=== PATIENT | female | born 1985 | race African-American/Black ===

== ENCOUNTER 2016-11-29 09:42 | Inpatient (IN) | payer OTHER, MEDICAID ==
[~2016-11-29] VITALS: Ht 157.5 cm; Wt 49.0 kg
[~2016-11-29 09:42] MED LIST: ALPR2TAB7 PO; AMLO10TA2 PO; BENA40TA2 PO; CARV25TA2 PO; DOXA1TAB2 PO; ESOM40CA PO; HYDR-4076 PO; HYDR8TAB2 PO; LEVE500T9 PO; Ondansetron Hcl/Pf PO; PANT40VI PO; PRED2.5T PO; SERT100T PO; SEVE800T8 PO; SUCR1ORA GT; TRAZ150T75 PO
--- NOTE | 2016-11-29 09:51 | NUR ---
PT.WAS SEEN BY .PT. SEEMS TO HAVE SOME ANXIETY.NO S/S OF DISTRESS,HD SIDE STILL UZING BLOOD,PRESSURE DRESSING REAPPLIED.
--- NOTE | 2016-11-29 09:54 | NUR ---
SPOKE ON THE PHONE WITH OF THE PT.
--- NOTE | 2016-11-29 11:00 | NUR ---
PT.WAS SEEN BY ,PT.WAS INFORM THAT WILL BE ADMITED TO TELE FLOOR.
[2016-11-29] MEDS ORDERED: CINA30TA2 PO (11:29)
[2016-11-29] MEDS ORDERED: HYDR200T PO (11:29)
[2016-11-29] MEDS ORDERED: POLY17PO4 PO (11:29)
[2016-11-29] MEDS ORDERED: METO5TAB2 PO (11:29)
[2016-11-29] MEDS ORDERED: BISA5TAB10 PO (11:29)
[2016-11-29] MEDS ORDERED: PRED2.5T PO (11:29)
[2016-11-29] MEDS ORDERED: FOLI0.8T2 PO (11:29)
[2016-11-29] MEDS ORDERED: ARIP5TAB10 PO (11:29)
[2016-11-29] MEDS ORDERED: DIPH50CA37 PO (11:29)
[2016-11-29 11:39] LABS: CREATININE 6.8 mg/dL (0.6-1.3); POTASSIUM 5.2 mmol/L (3.5-5.1)
--- NOTE | 2016-11-29 11:40 | NUR ---
SPOKE WITH CARE NEW ORDER TO ADMIT TO ARAVIND.NO S/S OF DISTRESS NOTED.
[2016-11-29 11:50] LABS: BILIRUBIN,DIRECT 0.2 mg/dL (0.0-0.2); BILIRUBIN,TOTAL 0.7 mg/dL (0.2-1.0); TOTAL PROTEIN, SERUM 8.6 g/dL (6.4-8.2)
--- NOTE | 2016-11-29 12:25 | NUR ---
SBAR REPORT GIVEN TO RIZWANA/RN PT.TRANSFERED TO CCU#4 ARAVIND STATUS.
[2016-11-29 12:36] LABS: HEMATOCRIT 31.5 % (37-47); HEMOGLOBIN 10.1 G/DL (12.0-16.0); MEAN CORPUSCULAR HEMOGLOBIN 30.6 UUG (27.0-31.0); MEAN CORPUSCULAR HGB CONC 32 g/dL (32.0-37.0); MEAN CORPUSCULAR VOLUME 95.8 FL (81.0-99.0); RED BLOOD CELL COUNT(AUTO) 3.29 MIL/UL (4.2-5.4); WHITE BLOOD COUNT (AUTO) 3.4 K/UL (4.0-11.2)
[2016-11-29 12:37] LABS: BASOPHILS % (AUTO) 0.7 % (0.0-2.0); EOSINOPHILS % (AUTO) 1.3 % (0.0-7.0); LYMPHOCYTES # (AUTO) 0.5 K/UL (0.8-4.8); LYMPHOCYTES % (AUTO) 15.4 % (20.5-51.5); MONOCYTES # (AUTO) 0.2 K/UL (0.1-1.30); MONOCYTES % (AUTO) 5.6 % (0.0-11.0); NEUTROPHILS # (AUTO) 2.6 K/UL (1.8-8.9); PLATELET COUNT (AUTO) 134 K/UL (150-450)
--- NOTE | 2016-11-29 12:45 | NUR ---
At this time patient, in from ER. vital signs stable, no c/of pain. no n/v. left upper thigh with clamp in place no bleeding noted. Patient AAOx4 with vitals signs stable at this time. Addendum: 11/29/16 at 1401 by RIZWANA HOYOS RN Dr. Blackmon called to be notified of pt's admission to ICU as ARAVIND overflow .
[2016-11-29 12:53] VITALS: BP 151/88
--- NOTE | 2016-11-29 15:04 | NUR ---
A call to Dr. Blackmon report given and orders to transfer patient to telemetry status. vital signs stable. no signs of bleeding to left upper thigh.
--- NOTE | 2016-11-29 15:56 | NUR ---
Telephone report given to maday Zhou. vital signs stable. No bleeding noted at AV Shunt. patient AAOX4. able to use bedside commode.
--- NOTE | 2016-11-29 16:10 | NUR ---
Received this transfer from CCU, per wheelchair. Alert, oriented x 4, able to move all extremities on purpose. Left AV fistula with dressing, no bleeding noted. Saline to Right foot. Placed on tele SR 95.
--- NOTE | 2016-11-29 17:37 | NUR ---
Complained of headache. Dilaudid 2 mg IV given with relief
--- NOTE | 2016-11-29 18:56 | NUR ---
Nauseated, Zofran IV will be given. Endorsed for further care
--- NOTE | 2016-11-29 19:00 | NUR ---
PATIENT IN BED ALERT ORIENTED, NO COMPLAIN OF PAIN AT THIS TIME. NO FURTHER BLEEDING NOTED AT AV SHUNT ON L THIGH. CALL LIGHT WITHIN REACH. CONT TO MONITOR.
[2016-11-29 20:00] VITALS: BP 164/104
[2016-11-30 00:03] VITALS: BP 156/107
--- NOTE | 2016-11-30 02:25 | NUR ---
NOTIFY DR. ANJELICA CHONG THAT PATIENT HAS ELEVATED BP WITH ORDER.
--- NOTE | 2016-11-30 03:30 | NUR ---
PATIENT BP ELEVATED 167/115 HR 97, DR. CHONG ORDER METOPROLOL 50 MG PLUS TYLENOL 650MG PO, BUT PATIENT REFUSED BOTH MEDICATIONS. CONT TO MONITOR.
[2016-11-30 04:00] VITALS: BP 165/106
[2016-11-30 07:33] LABS: BILIRUBIN,TOTAL 0.5 mg/dL (0.2-1.0); PHOSPHOROUS 7.1 mg/dL (2.5-4.9); POTASSIUM 5.4 mmol/L (3.5-5.1); TOTAL PROTEIN, SERUM 8.6 g/dL (6.4-8.2)
[2016-11-30 07:51] LABS: CREATININE 9.4 mg/dL (0.6-1.3)
[2016-11-30 07:59] LABS: WHITE BLOOD COUNT (AUTO) 4.3 K/UL (4.0-11.2)
[2016-11-30 08:00] VITALS: BP 146/106
[2016-11-30 08:00] LABS: BASOPHILS % (AUTO) 0.7 % (0.0-2.0); EOSINOPHILS % (AUTO) 2.1 % (0.0-7.0); HEMOGLOBIN 9.3 G/DL (12.0-16.0); LYMPHOCYTES % (AUTO) 26.1 % (20.5-51.5); MEAN CORPUSCULAR HEMOGLOBIN 31.4 UUG (27.0-31.0); MEAN CORPUSCULAR HGB CONC 32 g/dL (32.0-37.0); MEAN CORPUSCULAR VOLUME 97.1 FL (81.0-99.0); NEUTROPHILS % (AUTO) 64.1 % (38.5-71.5); PLATELET COUNT (AUTO) 129 K/UL (150-450); RED BLOOD CELL COUNT(AUTO) 2.96 MIL/UL (4.2-5.4)
--- NOTE | 2016-11-30 08:00 | NUR ---
CREATININE IS 9.4 RECEIVED FROM THE LAB AND DR LEMUS NOTIFIED WITH NO NEW ORDERS AT THIS TIME.
[2016-11-30 08:01] LABS: EOSINOPHILS # (AUTO) 0.1 K/uL (0.0-0.7); LYMPHOCYTES # (AUTO) 1.1 K/UL (0.8-4.8); MONOCYTES # (AUTO) 0.3 K/UL (0.1-1.30); NEUTROPHILS # (AUTO) 2.8 K/UL (1.8-8.9)
--- NOTE | 2016-11-30 08:52 | NUR ---
PATIENT SEEN AND EXAMINED BY DR LEMUS AND HE STATED THAT PATIENT WILL HAVE DIALYSIS TODAY AND HE IS AWARE OF THE CREATINE OF 9.4
[2016-11-30 09:44] LABS: THYROID STIMULATING HORMONE 3.024 mIU/mL (0.358-3.740)
[2016-11-30 11:16] VITALS: BP 146/95
--- NOTE | 2016-11-30 11:29 | NUR ---
WHILE I WAS IN THE ROOM GIVING PATIENT HER BENADRYL AND DILAUDID THE HEALTH AND SAFETY DIRECTOR CAME IN MOVED THE COMPUTER AND THE BED TABLE AND PATIENT GOT UPSET AND TOLD HER THAT SHE WAS RUDE BECAUSE SHE WAS TALKING AND THAT SHE DID NOT NEED TO PUSH THINGS AROUND LIKE THAT AND FINALLY AFTER ALL SAID AND DONE THE PATIENT TOLD THE HEALTH AND SAFETY DIRECTOR THAT SHE DOES NOT WANT HER TO DO HER DIALYSIS SO THE DIALYSIS NURSE LEFT.
--- NOTE | 2016-11-30 15:00 | NUR ---
PATIENT VOMITED ABOUT 150ML OF PARTLY UNDIGESTED FOOD UNABLE TO GIVE HER THE DUE HYDRALAZINE ZOFRAN GIVEN ORDERED AND WILL OBSERVE.
[2016-11-30 15:10] VITALS: BP 146/88
--- NOTE | 2016-11-30 18:00 | NUR ---
RESTING COMFORTABLE REQUESTED AND RECEIVED MEDICATIONS FOR PAIN AND ITCHING ORDERED MADE COMFORTABLE.
[2016-11-30 20:00] VITALS: BP 146/106
[2016-12-01] VITALS: BP 152/90
--- NOTE | 2016-12-01 06:30 | NUR ---
PATIENT SLEPT INTERMITTENTLY, IN NO ACUTE DISTRESS, NO SOB, NO C/O OF CHEST PAIN, NO S/S OF BLEEDING. PAIN MANAGEMENT ORDERED. PATIENT IS ON TELE SINUS RHYTHM. CALL LIGHT WITHIN REACH, WILL CONTINUE TO MONITOR.
--- NOTE | 2016-12-01 08:00 | NUR ---
AWAKE ALERT COOPERATE WELL NO SOB OR PAIN EAT BREAKFAST WELL HL INPLACE ON LT UPPER ARM AND CALL LIGHT WITHIN REACH
--- NOTE | 2016-12-01 09:00 | NUR ---
START HD TODAY KATINA PROCEDURE WELL DR HERNANDEZ SEEN PATIENT AND ORDER OK TO DISCHARGE HOME TODAY
[2016-12-01 11:00] VITALS: BP 121/80
--- NOTE | 2016-12-01 12:19 | NUR ---
The patient will be discharged today back home [[address], [place] [address]] [address] Leone. She is aware and in agreement. She confirmed her address and will try to arrange for her transportation. Her RN, Nabila, is aware of her discharge plan.
--- NOTE | 2016-12-01 12:30 | NUR ---
HD FINISHED TAKE OUT 2000ML RESTING WELL
--- NOTE | 2016-12-01 13:30 | NUR ---
EAT LUNCH MOD AMT D/C INSTRUCTION GIVEN REGARDING F/U WITH VASCULAR MD /PMD CONTINUE HOME MEDICINE ORDER REFUSED PHAMACY TO INSTRUCTION ON HOME MEDICINE AND EDUCATION PK GIVEN ,UNDERSTAND AND SIGNS D/C SHEET
[2016-12-01 15:00] VITALS: BP 117/84
--- NOTE | 2016-12-01 15:00 | NUR ---
IV HL D/C PRIOR D/C HOME TODAY CONDITION STABLE PAIN AND N/V UNDER CONTROL NO BLEEDING FROM AV SHUNT SITE DSG D/I
--- NOTE | 2016-12-01 16:05 | NUR ---
D/C HOME WITH HER BELONGING CONDITION STABLE PAIN AND NAUSEA UNDER CONTROL
== END 2016-12-01 16:05 | disposition home or self-care (01) | DRG 314 ==
LOC: ER 09:42 → CCU 12:37 → TELE 16:35
PROVIDERS: ADMIT Internal Medicine; ATTEND Internal Medicine
PROC: 5A1D60Z (ICD-10-PCS; principal; 2016-11-29)
DX: T82.41XA Breakdown (mechanical) of vascular dialysis catheter, initial encounter (principal); N18.6 End stage renal disease; T82.838A Hemorrhage due to vascular prosthetic devices, implants and grafts, initial encounter; I12.0 Hypertensive chronic kidney disease with stage 5 chronic kidney disease or end stage renal disease; M32.14 Glomerular disease in systemic lupus erythematosus; F11.20 Opioid dependence, uncomplicated; I69.351 Hemiplegia and hemiparesis following cerebral infarction affecting right dominant side; M32.19 Other organ or system involvement in systemic lupus erythematosus; E87.79 Other fluid overload; Z82.49 Family history of ischemic heart disease and other diseases of the circulatory system; Z81.8 Family history of other mental and behavioral disorders; G40.909 Epilepsy, unspecified, not intractable, without status epilepticus; G43.909 Migraine, unspecified, not intractable, without status migrainosus; Z79.899 Other long term (current) drug therapy; D63.8 Anemia in other chronic diseases classified elsewhere; Z99.2 Dependence on renal dialysis; Z91.15 Patient's noncompliance with renal dialysis; O10.219 Pre-existing hypertensive chronic kidney disease complicating pregnancy, unspecified trimester; Z3A.00 Weeks of gestation of pregnancy not specified; G89.4 Chronic pain syndrome; M79.7 Fibromyalgia; K58.9 Irritable bowel syndrome, unspecified; E87.5 Hyperkalemia; E28.2 Polycystic ovarian syndrome; N80.0 Endometriosis of uterus; Z88.8 Allergy status to other drugs, medicaments and biological substances; Z88.6 Allergy status to analgesic agent; Z91.040 Latex allergy status
CPT/HCPCS: 36415; 70030-TC; 71010; 83690; 83735; 84100; 84443; 85025; 85610; 90937; 93005; A4663; J1170; J1200; J2405; J2597; J3490; J7040; J7512; J8597; Q0163

== ENCOUNTER 2016-12-22 04:51 | Inpatient (IN) | payer OTHER, MEDICAID ==
[~2016-12-22] VITALS: Ht 157.5 cm; Wt 46.7 kg
[~2016-12-22 04:51] MED LIST changes: +ARIP5TAB10 PO; +BISA5TAB10 PO; +CINA30TA2 PO; +DIPH50CA37 PO; +FOLI0.8T2 PO; +HYDR200T PO; +METO5TAB2 PO; -PANT40VI PO; +POLY17PO4 PO; -SERT100T PO; -SUCR1ORA GT; -TRAZ150T75 PO
[2016-12-22] MEDS ORDERED: HYDROMORPHONE 1 MG/1 ML DISP.SYRIN IV ONE ×2 (06:00→09:15)
[2016-12-22] MEDS ORDERED: ONDANSETRON 4 MG/2 ML VIAL IV ONE (06:00)
[2016-12-22] MEDS ORDERED: HYDROMORPHONE 2 MG/1 ML DISP.SYRIN ONE ×2 (06:31→09:24)
[2016-12-22] MEDS ORDERED: ONDANSETRON 4 MG/2 ML VIAL ONE (06:31)
[2016-12-22 06:40] LABS: BASOPHILS % (AUTO) 0.9 % (0.0-2.0); EOSINOPHILS # (AUTO) 0.1 K/uL (0.0-0.7); EOSINOPHILS % (AUTO) 3.2 % (0.0-7.0); HEMOGLOBIN 8.6 g/dL (10.9-14.3); LYMPHOCYTES # (AUTO) 0.7 K/uL (20.0-40.0); LYMPHOCYTES % (AUTO) 19.8 % (20.5-51.5); MEAN CORPUSCULAR HEMOGLOBIN 32.5 uug (24.7-32.8); MEAN CORPUSCULAR HGB CONC 33 g/dL (32.3-35.6); MEAN CORPUSCULAR VOLUME 98.8 fL (75.5-95.3); MONOCYTES # (AUTO) 0.3 K/uL (2.0-10.0); MONOCYTES % (AUTO) 7.1 % (0.0-11.0); NEUTROPHILS # (AUTO) 2.5 K/uL (1.8-8.9); PLATELET COUNT (AUTO) 128 K/uL (179-408); RED BLOOD CELL COUNT(AUTO) 2.64 MIL/uL (3.63-4.92); WHITE BLOOD COUNT (AUTO) 3.6 K/uL (3.8-11.8)
[2016-12-22] MEDS ORDERED: diphenhydrAMINE 50 MG/1 ML VIAL ONE (06:44)
[2016-12-22] MEDS ORDERED: diphenhydrAMINE 50 MG/1 ML VIAL IV ONE (06:45)
[2016-12-22 06:57] LABS: BILIRUBIN,TOTAL 0.3 mg/dL (0.2-1.0); TOTAL PROTEIN, SERUM 7.6 g/dL (6.4-8.2)
[2016-12-22 07:16] LABS: POTASSIUM 8.7 mmol/L (3.5-5.1)
[2016-12-22] MEDS ORDERED: DEXTROSE 50% 50 ML DISP.SYRIN IV ONE (07:30)
[2016-12-22] MEDS ORDERED: SODIUM BICARBONATE 8.4% 50 MEQ/50 ML DISP.SYRIN IV ONE (07:30)
[2016-12-22] MEDS ORDERED: SODIUM POLYSTYRENE SULFONATE 15 G/60 ML LIQUID UDC PO ONE (07:30)
[2016-12-22] MEDS ORDERED: INSULIN REGULAR, HUMAN 1,000 UNITS/10 ML VIAL IV ONE (07:30)
[2016-12-22] MEDS ORDERED: SODIUM POLYSTYRENE SULFONATE 15 G/60 ML LIQUID UDC ONE (07:44)
[2016-12-22] MEDS ORDERED: DEXTROSE 50% 50 ML DISP.SYRIN ONE (07:44)
[2016-12-22] MEDS ORDERED: INSULIN REGULAR, HUMAN 300 UNIT/3 ML VIAL ONE (07:44)
[2016-12-22 08:39] LABS: BILIRUBIN,DIRECT 0.1 mg/dL (0.0-0.2)
--- NOTE | 2016-12-22 08:50 | NUR ---
called dr. nolan, will call dr. ledezma per dr. nolan
--- NOTE | 2016-12-22 09:00 | NUR ---
dr. hernandes admitted the pt. transfer to floor pending on the bed being available. nsg foundry melt supervisor aware.
[2016-12-22] MEDS ORDERED: ONDANSETRON IV *ER 4 MG/2 ML VIAL IV ONE (09:15)
[2016-12-22 09:36] LABS: *BILIRUBIN,URIN NEGATIVE (NEGATIVE); *BLOOD, URINE 3+ (NEGATIVE); *CLARITY,URINE CLOUDY (CLEAR); *COLOR,URINE RED (YELLOW); *KETONES,URINE NEGATIVE (NEGATIVE); *UROBILINOGEN,URINE 0.2 E.U./dl (NORMAL); LEUKOCYTE ESTERASE ,URINE NEGATIVE (NEGATIVE); NITRITE, URINE NEGATIVE (NEGATIVE); PH,URINE 8.5 (5.0-8.0); UGLUCOSE TRACE (NEGATIVE)
[2016-12-22 09:44] LABS: *PROTEIN,URINE 3+ (NEGATIVE)
[2016-12-22 09:47] LABS: BACTERIA,URINE NONE SEEN /HPF (NONE SEEN); RBC,URINE TNTC /HPF (0-3); SQUAMOUS EPITHELIAL CELL,UR FEW /HPF (NONE SEEN); WBC,URINE NONE SEEN /HPF (0-3)
--- NOTE | 2016-12-22 10:07 | NUR ---
pt transfered to floor in stable condition
[2016-12-22 10:30] VITALS: BP 197/120
--- NOTE | 2016-12-22 10:30 | NUR ---
received from ER awake alert and oriented per stretcher with c./o vaginal bleeding and lower abdominal and back pain, states missed her dialysis. av shunt on the left thigh, routine admission care rendered, initial assessment done, spoke to dialysis nurse- will do her today, safety measures initiated, saline lock on the left lower leg above the ankle. call light within reach.
[2016-12-22] MEDS ORDERED: HYDROMORPHONE 1 MG/1 ML DISP.SYRIN IV PRN (11:00)
[2016-12-22] MEDS ORDERED: ONDANSETRON PO PRN (11:00)
[2016-12-22] MEDS ORDERED: ACETAMINOPHEN 325 MG TABLET PO PRN (11:00)
[2016-12-22] MEDS ORDERED: ONDANSETRON HCL 4 MG TABLET PO PRN (11:45)
[2016-12-22] MEDS ORDERED: HYDROMORPHONE HCL 2 MG TABLET PO PRN (12:00)
--- NOTE | 2016-12-22 12:22 | NUR ---
dialysis nurse at bedside to do dialysis- meds held at this time
[2016-12-22] MEDS ORDERED: HYDROMORPHONE 2 MG/1 ML DISP.SYRIN IV PRN (13:15)
[2016-12-22] MEDS: HYDROMORPHONE 2 MG/1 ML DISP.SYRIN IV PRN ×3 (13:21→21:06)
[2016-12-22] MEDS: diphenhydrAMINE 50 MG/1 ML VIAL IV PRN ×3 (13:21→21:06)
--- NOTE | 2016-12-22 15:00 | NUR ---
dialysis completed, took out 2.5 liters of fluid, no distress noted, will serve lunch and give medications, tele SR 90's, needs attended
[2016-12-22] MEDS: LEVETIRACETAM 500 MG TABLET PO SCH ×2 (15:34→17:00)
[2016-12-22] MEDS: CARVEDILOL 25 MG TABLET PO SCH ×2 (15:35→17:00)
[2016-12-22] MEDS: AMLODIPINE 10 MG TABLET PO SCH (15:35)
[2016-12-22] MEDS: CINACALCET HCL 30 MG TABLET PO SCH (15:35)
[2016-12-22] MEDS: DOXAZOSIN 1 MG TABLET PO SCH ×2 (15:36→17:00)
[2016-12-22] MEDS: hydrALAZINE HCL 25 MG TABLET PO SCH ×2 (15:36→23:02)
[2016-12-22] MEDS: SEVELAMER CARBONATE 800 MG TABLET PO SCH ×2 (15:41→18:00)
[2016-12-22] MEDS: BENAZEPRIL HCL 20 MG TABLET PO SCH ×2 (15:42→17:00)
[2016-12-22] MEDS ORDERED: Medication Not On Formulary EA (Benazepril Hcl 40 MG) PO SCH (17:00)
[2016-12-22 17:26] VITALS: BP 143/88
--- NOTE | 2016-12-22 18:53 | NUR ---
resting in bed, medicated x2 with Dilaudid 1.5mg iv prn for pain this shift, all needs attended and met, still has vaginal bleeding, changed peripad x 3 this shift, call light within reach
--- NOTE | 2016-12-22 19:40 | NUR ---
PT RECEIVED IN BED, AWAKE. A/OX4. ABLE TO MAKE NEEDS KNOWN. V/S STABLE. IN NO ACUTE DISTRESS. C/O ABDOMINAL PAIN AND HEADACHE 10/21. IV INTACT AND PATENT. AV SHUNT IN LEFT THIGH, THRILL FELT. SAFETY MEASURE IMPLEMENTED. CALL LIGHT WITHIN REACH.
[2016-12-22] MEDS: DOCUSATE SODIUM 100 MG CAPSULE PO SCH (21:00)
[2016-12-22 21:59] VITALS: BP 149/106
[2016-12-23] MEDS: diphenhydrAMINE 50 MG/1 ML VIAL IV PRN ×6 (01:07→21:59)
[2016-12-23] MEDS: HYDROMORPHONE 2 MG/1 ML DISP.SYRIN IV PRN ×6 (01:07→21:59)
[2016-12-23 05:30] VITALS: BP 138/76
--- NOTE | 2016-12-23 06:30 | NUR ---
END OF SHIFT NOTES. PT SLEPT INTERMITTENTLY THROUGHOUT SHIFT. IN STABLE CONDITION. PAIN MANAGED. IV/INTACT PATENT. ALL NEEDS ATTENDED. SAFETY MAINTAINED. CALL LIGHT WITHIN REACH.
[2016-12-23] MEDS: hydrALAZINE HCL 25 MG TABLET PO SCH ×3 (06:48→21:07)
[2016-12-23 07:30] LABS: BASOPHILS % (AUTO) 0.9 % (0.0-2.0); EOSINOPHILS # (AUTO) 0.2 K/uL (0.0-0.7); EOSINOPHILS % (AUTO) 4.3 % (0.0-7.0); HEMOGLOBIN 9.6 g/dL (10.9-14.3); LYMPHOCYTES % (AUTO) 29.5 % (20.5-51.5); MEAN CORPUSCULAR HEMOGLOBIN 31.9 uug (24.7-32.8); MEAN CORPUSCULAR HGB CONC 32 g/dL (32.3-35.6); MEAN CORPUSCULAR VOLUME 98.3 fL (75.5-95.3); MONOCYTES # (AUTO) 0.3 K/uL (2.0-10.0); MONOCYTES % (AUTO) 9.1 % (0.0-11.0); NEUTROPHILS % (AUTO) 56.2 % (38.5-71.5); WHITE BLOOD COUNT (AUTO) 3.5 K/uL (3.8-11.8)
[2016-12-23 07:34] LABS: HEMATOCRIT 29.5 % (31.2-41.9)
[2016-12-23 07:35] LABS: PLATELET COUNT (AUTO) 61 K/uL (179-408)
[2016-12-23 07:47] LABS: BILIRUBIN,TOTAL 0.4 mg/dL (0.2-1.0); MAGNESIUM 2.2 mg/dL (1.8-2.4); POTASSIUM 5.2 mmol/L (3.5-5.1)
[2016-12-23 08:16] LABS: CREATININE 11.5 mg/dL (0.6-1.3); PHOSPHOROUS 8.3 mg/dL (2.5-4.9)
[2016-12-23] MEDS: CINACALCET HCL 30 MG TABLET PO SCH (08:40)
[2016-12-23] MEDS: LEVETIRACETAM 500 MG TABLET PO SCH ×2 (08:40→16:59)
[2016-12-23] MEDS: FOLIC ACID/VITAMIN B COMP W-C TABLET PO SCH (08:40)
[2016-12-23] MEDS: SEVELAMER CARBONATE 800 MG TABLET PO SCH ×3 (08:40→16:59)
[2016-12-23] MEDS: predniSONE 2.5 MG TABLET PO SCH (08:40)
[2016-12-23] MEDS: FAMOTIDINE. 20 MG/2 ML VIAL IV SCH (08:40)
[2016-12-23] MEDS: AMLODIPINE 10 MG TABLET PO SCH (08:41)
[2016-12-23] MEDS: DOXAZOSIN 1 MG TABLET PO SCH ×2 (08:41→17:00)
[2016-12-23] MEDS: BENAZEPRIL HCL 20 MG TABLET PO SCH ×3 (08:41→17:00)
[2016-12-23] MEDS: CARVEDILOL 25 MG TABLET PO SCH ×3 (08:41→17:00)
[2016-12-23] MEDS ORDERED: HYDROXYCHLOROQUINE SULFATE 200 MG TABLET PO SCH (09:00)
--- NOTE | 2016-12-23 09:00 | NUR ---
START HD TODAY KATINA PROCEDURE WELL DR LEMUS SEE PATIENT AND LAB THIS AM NEW ORDER IN CHART
[2016-12-23 10:22] LABS: EOSINOPHILS % (MANUAL) 6 % (0-8); LYMPHOCYTES % (MANUAL) 38 % (20-40); MONOCYTES % (MANUAL) 6 % (2-10); NEUTROPHILS % (MANUAL) 50 % (42-75)
[2016-12-23 15:57] VITALS: BP 136/95
[2016-12-23] MEDS ORDERED: VITAMINS A AND D OINT TP PRN ×2 (17:30→18:26)
--- NOTE | 2016-12-23 18:00 | NUR ---
STABLE CONDITION PAIN UNDER CONTROL NO ACUTE DISTRESS SAFETY MEASURE PROVIDED CALL LIGHT IN REACH
[2016-12-23 20:50] VITALS: BP 139/87
[2016-12-23] MEDS: DOCUSATE SODIUM 100 MG CAPSULE PO SCH (21:00)
--- NOTE | 2016-12-23 22:00 | NUR ---
PT'S ON BED REST AFTER SHE GOT MEDICATION VIA IV SITE ON LEFT FOOT,PT STATED THAT"IT'S HURTING ME A LOT EVEN THOUGH MY VEIN'S STILL GOOD ONE.I DON'T LIKE IT ON MY FOOT",RESTARTED THE NEW HL AT LEFT FOREARM AND REMOVED THE OLD ONE FROM LEFT FOOT:PER PT REQUESTED.UPDATED THE PLAN OF CARE TO PT.PER PT STATED THAT" I HAVE PERIOD,STILL A LITTLE NOT REALLY A LOT LIKE BEFORE".KEPT COMFORT.CALL-LIGHT WITHIN REACH.
[2016-12-24] MEDS: diphenhydrAMINE 50 MG/1 ML VIAL IV PRN ×5 (02:07→18:55)
[2016-12-24] MEDS: HYDROMORPHONE 2 MG/1 ML DISP.SYRIN IV PRN ×5 (02:08→18:55)
[2016-12-24 04:53] VITALS: BP 147/92
[2016-12-24] MEDS: hydrALAZINE HCL 25 MG TABLET PO SCH ×3 (05:38→14:25)
--- NOTE | 2016-12-24 06:20 | NUR ---
PT'S COMFORTABLE ON BED;DENIED OF PAIN OR ANY DISCOMFORT AT THIS TIME.PAIN'S CONTROLLED IN THE SHIFT NOTED.PER PT STATED THAT"I THINK I HAVE NO MORE PERIOD".NO DISTRESS NOTED IN THE SHIFT.
[2016-12-24] MEDS: FAMOTIDINE. 20 MG/2 ML VIAL IV SCH (07:49)
--- NOTE | 2016-12-24 08:00 | NUR ---
AWAKE COOPERATE NO SOB STATE PAIN MED HELP TO RELIEF PAIN C/O NAUSDA MED PRN GIVEN VAGINAL BLEEDING WAS SLOW DOWN AND LESS RESTING WELL WITH CALL LIGHT IN REACH
[2016-12-24] MEDS: FOLIC ACID/VITAMIN B COMP W-C TABLET PO SCH (09:13)
[2016-12-24] MEDS: AMLODIPINE 10 MG TABLET PO SCH (09:13)
[2016-12-24] MEDS: SEVELAMER CARBONATE 800 MG TABLET PO SCH ×3 (09:13→17:16)
[2016-12-24] MEDS: predniSONE 2.5 MG TABLET PO SCH (09:14)
[2016-12-24] MEDS: BENAZEPRIL HCL 20 MG TABLET PO SCH ×2 (09:14→17:20)
[2016-12-24] MEDS: CARVEDILOL 25 MG TABLET PO SCH ×2 (09:14→17:20)
[2016-12-24] MEDS: DOXAZOSIN 1 MG TABLET PO SCH ×2 (09:14→17:20)
[2016-12-24] MEDS: CINACALCET HCL 30 MG TABLET PO SCH (09:15)
[2016-12-24] MEDS: LEVETIRACETAM 500 MG TABLET PO SCH ×2 (09:15→17:16)
[2016-12-24 11:14] VITALS: BP 150/92
--- NOTE | 2016-12-24 14:30 | NUR ---
pain med and zofran given as request resting vs taken stable
[2016-12-24 15:04] VITALS: BP 124/83
--- NOTE | 2016-12-24 17:30 | NUR ---
STABLE CONDITION NO ACUTE DISTRESS PAIN UNDER CONTROL SAFETY MEASURE PROVIDED CALL LIGHT IN REACH
[2016-12-24] MEDS ORDERED: HYDR2TAB4 PO (17:56)
--- NOTE | 2016-12-24 18:00 | NUR ---
D/C INSTRUCTION REGARDING F/U WITH OWN PMD CONTINUE HOME MEDICINE AND EDUCATION PK GIVE ,VERBALIZES UNDERSTAND AND SIGNS D/C SHEET HL D/C PRIOR D/C HOME TODAY
--- NOTE | 2016-12-24 18:30 | NUR ---
REFUSED TO HAVE PHAMACY EXPLAINED ALL HOME MEDICINE AND DR ARREDONDO STATE I KNOW IT
[2016-12-24 20:00] VITALS: BP 132/89
--- NOTE | 2016-12-24 20:09 | NUR ---
Denies any pain/discomforts. VS stable. Not in distress. Discharged to home with belongings.
[2016-12-25] MEDS ORDERED: FAMOTIDINE 20 MG TABLET PO SCH (09:00)
== END 2016-12-24 20:05 | disposition home or self-care (01) | DRG 682 ==
LOC: ER 04:51 → TELE 09:55 → MED 20:00
PROVIDERS: ADMIT Internal Medicine; ATTEND Internal Medicine
PROC: 5A1D70Z Performance of Urinary Filtration, Intermittent, Less than 6 Hours Per Day (ICD-10-PCS; principal; 2016-12-22)
DX: I12.0 Hypertensive chronic kidney disease with stage 5 chronic kidney disease or end stage renal disease (principal); N18.6 End stage renal disease; M32.14 Glomerular disease in systemic lupus erythematosus; I69.354 Hemiplegia and hemiparesis following cerebral infarction affecting left non-dominant side; E87.5 Hyperkalemia; N93.8 Other specified abnormal uterine and vaginal bleeding; Z99.2 Dependence on renal dialysis; Z91.15 Patient's noncompliance with renal dialysis; D63.1 Anemia in chronic kidney disease; F12.90 Cannabis use, unspecified, uncomplicated; K21.9 Gastro-esophageal reflux disease without esophagitis; M79.7 Fibromyalgia; K58.1 Irritable bowel syndrome with constipation; Z81.8 Family history of other mental and behavioral disorders; G43.909 Migraine, unspecified, not intractable, without status migrainosus; Z79.52 Long term (current) use of systemic steroids; Z88.6 Allergy status to analgesic agent; Z91.040 Latex allergy status; Z91.018 Allergy to other foods; G89.4 Chronic pain syndrome; H26.9 Unspecified cataract; M14.80 Arthropathies in other specified diseases classified elsewhere, unspecified site; Z79.899 Other long term (current) drug therapy; Z82.49 Family history of ischemic heart disease and other diseases of the circulatory system; N92.6 Irregular menstruation, unspecified; G40.909 Epilepsy, unspecified, not intractable, without status epilepticus; R10.2 Pelvic and perineal pain
CPT/HCPCS: 36415; 76856; 83735; 84100; 84703; 85025; 85730; 86850; 86900; 86901; 90937; 93005; A4663; J1170; J1200; J1815; J2405; J3490; J7030; J7512; Q0162

== ENCOUNTER 2016-12-29 04:47 | Emergency (ER) | payer OTHER, MEDICAID ==
[~2016-12-29] VITALS: Ht 157.5 cm; Wt 49.4 kg
[~2016-12-29 04:47] MED LIST changes: -ALPR2TAB7 PO; -ARIP5TAB10 PO; -BISA5TAB10 PO; +HYDR2TAB4 PO; -METO5TAB2 PO; -POLY17PO4 PO
[2016-12-29] MEDS ORDERED: IV NORMAL SALINE 500 ML BAG IV ONE (05:45)
--- NOTE | 2016-12-29 06:00 | NUR ---
Patient observed in room talking on her cell phone, education provided regarding cell phone use in hospital but patient refuses to acknowledge staff or allow staff to perform care at this time. ERMD notified, will perform care when patient finishes telephone call.
[2016-12-29 06:40] LABS: BASOPHILS % (AUTO) 0.7 % (0.0-2.0); EOSINOPHILS # (AUTO) 0.2 K/uL (0.0-0.7); EOSINOPHILS % (AUTO) 4.9 % (0.0-7.0); HEMOGLOBIN 8.4 G/DL (12.0-16.0); LYMPHOCYTES # (AUTO) 0.8 K/UL (0.8-4.8); LYMPHOCYTES % (AUTO) 19.3 % (20.5-51.5); MEAN CORPUSCULAR HEMOGLOBIN 30.4 UUG (27.0-31.0); MEAN CORPUSCULAR HGB CONC 31 g/dL (32.0-37.0); MEAN CORPUSCULAR VOLUME 97.3 FL (81.0-99.0); MONOCYTES # (AUTO) 0.3 K/UL (0.1-1.30); MONOCYTES % (AUTO) 8.1 % (0.0-11.0); NEUTROPHILS # (AUTO) 2.8 K/UL (1.8-8.9); PLATELET COUNT (AUTO) 120 K/UL (150-450); RED BLOOD CELL COUNT(AUTO) 2.77 MIL/UL (4.2-5.4); WHITE BLOOD COUNT (AUTO) 4.1 K/UL (4.0-11.2)
[2016-12-29 06:54] LABS: *BILIRUBIN,URIN NEGATIVE (NEGATIVE); *BLOOD, URINE 2+ (NEGATIVE); *COLOR,URINE YELLOW (YELLOW); *KETONES,URINE NEGATIVE (NEGATIVE); *PROTEIN,URINE 3+ (NEGATIVE); *UROBILINOGEN,URINE 0.2 E.U./dl (NORMAL); LEUKOCYTE ESTERASE ,URINE NEGATIVE (NEGATIVE); NITRITE, URINE NEGATIVE (NEGATIVE); PH,URINE 8.5 (5.0-8.0); UGLUCOSE NEGATIVE (NEGATIVE)
[2016-12-29 06:55] LABS: *URINE HCG, QUAL NEGATIVE (NEGATIVE)
[2016-12-29 06:58] LABS: ALANINE AMINOTRANSFERASE 10 U/L (14-59); ALKALINE PHOSPHATASE 74 U/L (50-136); ASPARTATE AMINOTRANSFERASE < 5 U/L (15-37); BILIRUBIN,DIRECT 0.1 mg/dL (0.0-0.2); BILIRUBIN,TOTAL 0.3 mg/dL (0.2-1.0); CARBON DIOXIDE 27 mmol/L (21-32); CHLORIDE 103 mmol/L (98-107); GLUCOSE 94 mg/dL (74-106); LIPASE 194 U/L (73-393); POTASSIUM 5.8 mmol/L (3.5-5.1); TOTAL PROTEIN, SERUM 7.4 g/dL (6.4-8.2); UREA NITROGEN, BLOOD 50 mg/dL (7-18)
[2016-12-29 06:59] LABS: CREATININE 11.4 mg/dL (0.6-1.3)
[2016-12-29 07:07] LABS: *CLARITY,URINE SLIGHTLY CLOUDY (CLEAR)
[2016-12-29 07:08] LABS: BACTERIA,URINE MODERATE /HPF (NONE SEEN); SQUAMOUS EPITHELIAL CELL,UR MANY /HPF (NONE SEEN); WBC,URINE 0-3 /HPF (0-3)
[2016-12-29] MEDS ORDERED: HYDROMORPHONE HCL 2 MG TABLET PO ONE (08:15)
[2016-12-29] MEDS ORDERED: ONDANSETRON IV *ER 4 MG/2 ML VIAL IV ONE (08:15)
[2016-12-29] MEDS ORDERED: HYDROMORPHONE HCL 2 MG TABLET ONE (08:22)
[2016-12-29] MEDS ORDERED: ONDANSETRON 4 MG/2 ML VIAL ONE (08:22)
--- NOTE | 2016-12-29 08:27 | NUR ---
PT WAS RE-EVALUATED BY DR VALENTINO. PT WAS D/C TO HOME. D/C INSTRUCTUIONS GIVEN TO THE PT. PT DENIES PAIN. NO N/V. NO SOB.
[2016-12-29 08:28] VITALS: BP 148/97
== END 2016-12-29 08:29 | disposition home or self-care (01) ==
LOC: ER 04:49
DX: I12.0 Hypertensive chronic kidney disease with stage 5 chronic kidney disease or end stage renal disease (principal); M32.14 Glomerular disease in systemic lupus erythematosus; N18.6 End stage renal disease; Z99.2 Dependence on renal dialysis; K21.9 Gastro-esophageal reflux disease without esophagitis; M79.7 Fibromyalgia; Z86.73 Personal history of transient ischemic attack (TIA), and cerebral infarction without residual deficits; E28.2 Polycystic ovarian syndrome; K58.9 Irritable bowel syndrome, unspecified; G89.4 Chronic pain syndrome; G40.909 Epilepsy, unspecified, not intractable, without status epilepticus
CPT/HCPCS: 36415; 71010; 83690; 84703; 85025; 85730; A4663; J2405; J7040

== ENCOUNTER 2017-03-21 08:29 | Emergency (ER) | payer MEDICAID, OTHER ==
[~2017-03-21] VITALS: Ht 157.5 cm; Wt 49.4 kg
[2017-03-21] MEDS ORDERED: ONDANSETRON HCL 4 MG TABLET PO ONE (09:00)
[2017-03-21] MEDS ORDERED: ONDANSETRON ODT 4 MG TAB.RAPDIS SL ONE (09:00)
[2017-03-21] MEDS ORDERED: HYDROCODONE/APAP 5-325MG TABLET PO ONE (09:00)
--- NOTE | 2017-03-21 09:01 | NUR ---
pt refuses po norco at this time, says she cant hold it down. pt took alhaji santiago.
[2017-03-21] MEDS ORDERED: HYDROCODONE/APAP 5-325MG TABLET ONE (09:09)
[2017-03-21] MEDS ORDERED: ONDANSETRON HCL 4 MG TABLET ONE (09:09)
[2017-03-21] MEDS ORDERED: ONDANSETRON ODT 4 MG TAB.RAPDIS ONE (09:11)
[2017-03-21 09:53] LABS: BASOPHILS % (AUTO) 0.5 % (0.0-2.0); EOSINOPHILS # (AUTO) 0.1 K/uL (0.0-0.7); EOSINOPHILS % (AUTO) 1.2 % (0.0-7.0); HEMATOCRIT 29.5 % (31.2-41.9); HEMOGLOBIN 9.6 g/dL (10.9-14.3); LYMPHOCYTES # (AUTO) 0.7 K/uL (20.0-40.0); LYMPHOCYTES % (AUTO) 8.7 % (20.5-51.5); MEAN CORPUSCULAR HEMOGLOBIN 30.8 uug (24.7-32.8); MEAN CORPUSCULAR HGB CONC 33 g/dL (32.3-35.6); MEAN CORPUSCULAR VOLUME 94.5 fL (75.5-95.3); MONOCYTES # (AUTO) 0.6 K/uL (2.0-10.0); MONOCYTES % (AUTO) 8.6 % (0.0-11.0); NEUTROPHILS # (AUTO) 6.2 K/uL (1.8-8.9); PLATELET COUNT (AUTO) 168 K/uL (179-408); RED BLOOD CELL COUNT(AUTO) 3.12 MIL/uL (3.63-4.92); WHITE BLOOD COUNT (AUTO) 7.6 K/uL (3.8-11.8)
[2017-03-21 10:03] LABS: POTASSIUM 4.6 mmol/L (3.5-5.1)
[2017-03-21 10:19] LABS: CREATININE 7.8 mg/dL (0.6-1.3)
--- NOTE | 2017-03-21 10:28 | NUR ---
pt in bed, no sign of distress at this point
--- NOTE | 2017-03-21 10:40 | NUR ---
Patient discharged to home in stable conditon. Written and verbal after care instructions given. Patient verbalizes understanding of instructions.pt walks in steady gait, no sign of distress.
[2017-03-21 10:58] VITALS: BP 131/93
== END 2017-03-21 10:40 | disposition home or self-care (01) ==
LOC: ER 08:29
DX: I12.0 Hypertensive chronic kidney disease with stage 5 chronic kidney disease or end stage renal disease (principal); N18.6 End stage renal disease; E11.22 Type 2 diabetes mellitus with diabetic chronic kidney disease; G89.29 Other chronic pain; F11.20 Opioid dependence, uncomplicated; E28.2 Polycystic ovarian syndrome; G40.909 Epilepsy, unspecified, not intractable, without status epilepticus; G43.909 Migraine, unspecified, not intractable, without status migrainosus; K21.9 Gastro-esophageal reflux disease without esophagitis; K58.9 Irritable bowel syndrome, unspecified; M79.7 Fibromyalgia; Z99.2 Dependence on renal dialysis; Z88.8 Allergy status to other drugs, medicaments and biological substances
CPT/HCPCS: 36415; 70450; 85025; A4663; Q0162

== ENCOUNTER 2017-05-02 07:20 | Inpatient (IN) | payer OTHER ==
[~2017-05-02] VITALS: Ht 157.5 cm; Wt 50.3 kg
[~2017-05-02 07:20] MED LIST changes: -HYDR200T PO; +HYDR200T81 PO
[2017-05-02] MEDS ORDERED: ELIQUIS 2.5 MG TABLET PO (07:35)
[2017-05-02] MEDS ORDERED: HYDROMORPHONE 1 MG/1 ML DISP.SYRIN IV ONE (07:45)
[2017-05-02] MEDS ORDERED: IV NORMAL SALINE 1000 ML BAG IV ONE (07:45)
[2017-05-02] MEDS ORDERED: ONDANSETRON 4 MG/2 ML VIAL IV ONE (07:45)
[2017-05-02 08:07] LABS: BASOPHILS % (AUTO) 1.3 % (0.0-2.0); EOSINOPHILS # (AUTO) 0.1 K/uL (0.0-0.7); EOSINOPHILS % (AUTO) 3.8 % (0.0-7.0); HEMATOCRIT 29.9 % (31.2-41.9); HEMOGLOBIN 9.6 g/dL (10.9-14.3); LYMPHOCYTES # (AUTO) 0.7 K/uL (20.0-40.0); LYMPHOCYTES % (AUTO) 19.5 % (20.5-51.5); MEAN CORPUSCULAR HEMOGLOBIN 31.4 uug (24.7-32.8); MEAN CORPUSCULAR HGB CONC 32 g/dL (32.3-35.6); MEAN CORPUSCULAR VOLUME 98.1 fL (75.5-95.3); MONOCYTES # (AUTO) 0.2 K/uL (2.0-10.0); MONOCYTES % (AUTO) 6.7 % (0.0-11.0); NEUTROPHILS # (AUTO) 2.4 K/uL (1.8-8.9); NEUTROPHILS % (AUTO) 68.7 % (38.5-71.5); PLATELET COUNT (AUTO) 135 K/uL (179-408); RED BLOOD CELL COUNT(AUTO) 3.05 MIL/uL (3.63-4.92); WHITE BLOOD COUNT (AUTO) 3.5 K/uL (3.8-11.8)
[2017-05-02] MEDS ORDERED: HYDROMORPHONE 2 MG/1 ML DISP.SYRIN ONE (08:08)
[2017-05-02] MEDS ORDERED: ONDANSETRON 4 MG/2 ML VIAL ONE (08:08)
[2017-05-02 08:36] LABS: CARBON DIOXIDE 31 mmol/L (21-32); CHLORIDE 98 mmol/L (98-107); GLUCOSE 88 mg/dL (74-106); POTASSIUM 5.3 mmol/L (3.5-5.1); UREA NITROGEN, BLOOD 36 mg/dL (7-18)
[2017-05-02 08:39] LABS: CREATININE 9.3 mg/dL (0.6-1.3)
[2017-05-02 08:42] LABS: ALANINE AMINOTRANSFERASE < 6 U/L (14-59); ALKALINE PHOSPHATASE 98 U/L (50-136); ASPARTATE AMINOTRANSFERASE 14 U/L (15-37); BILIRUBIN,DIRECT 0.1 mg/dL (0.0-0.2); BILIRUBIN,TOTAL 0.3 mg/dL (0.2-1.0); TOTAL PROTEIN, SERUM 8.2 g/dL (6.4-8.2)
[2017-05-02 17:05] VITALS: BP 140/83
[2017-05-02] MEDS ORDERED: ACETAMINOPHEN 325 MG TABLET PO PRN (18:30)
[2017-05-02] MEDS ORDERED: HYDROMORPHONE HCL 1 MG PO PRN (19:00)
[2017-05-02] MEDS ORDERED: diphenhydrAMINE 50 MG CAPSULE PO SCH (19:00)
[2017-05-02] MEDS ORDERED: HYDROMORPHONE HCL 2 MG TABLET PO PRN (19:30)
[2017-05-02] MEDS: LEVETIRACETAM 500 MG TABLET PO SCH (20:48)
[2017-05-02] MEDS: SEVELAMER CARBONATE 800 MG TABLET PO SCH (20:48)
[2017-05-02] MEDS: DOXAZOSIN 1 MG TABLET PO SCH (20:55)
[2017-05-02] MEDS: CARVEDILOL 25 MG TABLET PO SCH (20:56)
[2017-05-02] MEDS: BENAZEPRIL HCL 20 MG TABLET PO SCH (20:56)
[2017-05-02] MEDS: APIXABAN 5 MG TABLET PO SCH (21:11)
[2017-05-02 21:17] VITALS: BP 128/67
[2017-05-02] MEDS: hydrALAZINE HCL 25 MG TABLET PO SCH (22:00)
[2017-05-03] VITALS (10 sets, daily range): BP systolic 114–164; BP diastolic 71–111
[2017-05-03] MEDS: HYDROMORPHONE 2 MG/1 ML DISP.SYRIN IV PRN ×5 (00:36→23:20)
[2017-05-03] MEDS: diphenhydrAMINE 50 MG CAPSULE PO PRN ×4 (01:25→23:24)
[2017-05-03] MEDS: hydrALAZINE HCL 25 MG TABLET PO SCH ×3 (05:15→22:00)
[2017-05-03] MEDS: PANTOPRAZOLE SODIUM 40 MG TABLET.DR PO SCH ×2 (06:03→17:36)
[2017-05-03] MEDS ORDERED: IOHEXOL 350 100 ML INFUS..BTL ONE (07:56)
[2017-05-03] MEDS ORDERED: IV NORMAL SALINE 0 ML ONE (07:56)
[2017-05-03] MEDS: SEVELAMER CARBONATE 800 MG TABLET PO SCH ×3 (08:26→17:35)
[2017-05-03] MEDS: LEVETIRACETAM 500 MG TABLET PO SCH ×2 (08:56→17:36)
[2017-05-03] MEDS: DOXAZOSIN 1 MG TABLET PO SCH ×2 (08:56→17:00)
[2017-05-03] MEDS: CINACALCET HCL 30 MG TABLET PO SCH (08:56)
[2017-05-03] MEDS: FOLIC ACID/VITAMIN B COMP W-C TABLET PO SCH (08:57)
[2017-05-03] MEDS: AMLODIPINE 10 MG TABLET PO SCH (08:57)
[2017-05-03] MEDS: BENAZEPRIL HCL 20 MG TABLET PO SCH ×2 (08:57→17:00)
[2017-05-03] MEDS ORDERED: Medication Not On Formulary EA (Esomeprazole Mag Trihydrate (Nexium) 40 MG) PO SCH (09:00)
[2017-05-03] MEDS ORDERED: ELIQUIS 2.5 MG PO SCH (09:00)
[2017-05-03] MEDS ORDERED: Medication Not On Formulary EA (Benazepril Hcl 40 MG) PO SCH (09:00)
[2017-05-03] MEDS: CARVEDILOL 25 MG TABLET PO SCH ×2 (09:26→17:00)
[2017-05-03] MEDS: predniSONE 2.5 MG TABLET PO SCH (09:26)
[2017-05-03] MEDS: APIXABAN 5 MG TABLET PO SCH ×2 (09:26→17:41)
[2017-05-03] MEDS: HYDROXYCHLOROQUINE SULFATE 200 MG TABLET PO SCH (12:27)
[2017-05-03] MEDS: ONDANSETRON 4 MG/2 ML VIAL IV PRN (12:32)
[2017-05-03 14:35] LABS: *URINE HCG, QUAL NEGATIVE (NEGATIVE)
[2017-05-04 04:00] VITALS: BP 141/87
[2017-05-04] MEDS: hydrALAZINE HCL 25 MG TABLET PO SCH ×3 (06:00→21:05)
[2017-05-04] MEDS: PANTOPRAZOLE SODIUM 40 MG TABLET.DR PO SCH ×2 (06:51→18:48)
[2017-05-04] MEDS: HYDROMORPHONE 2 MG/1 ML DISP.SYRIN IV PRN ×4 (06:52→21:04)
[2017-05-04] MEDS ORDERED: HYDROMORPHONE 2 MG/1 ML DISP.SYRIN IV ONE (08:00)
[2017-05-04] MEDS: SEVELAMER CARBONATE 800 MG TABLET PO SCH ×3 (08:00→18:48)
[2017-05-04] MEDS: APIXABAN 5 MG TABLET PO SCH ×2 (08:32→18:48)
[2017-05-04] MEDS: HYDROXYCHLOROQUINE SULFATE 200 MG TABLET PO SCH (08:32)
[2017-05-04] MEDS: LEVETIRACETAM 500 MG TABLET PO SCH ×2 (08:33→18:48)
[2017-05-04] MEDS: FOLIC ACID/VITAMIN B COMP W-C TABLET PO SCH (08:34)
[2017-05-04] MEDS: CINACALCET HCL 30 MG TABLET PO SCH (08:38)
[2017-05-04] MEDS: DOXAZOSIN 1 MG TABLET PO SCH ×2 (09:00→18:51)
[2017-05-04] MEDS: BENAZEPRIL HCL 20 MG TABLET PO SCH ×2 (09:00→18:52)
[2017-05-04] MEDS: AMLODIPINE 10 MG TABLET PO SCH (09:00)
[2017-05-04] MEDS: CARVEDILOL 25 MG TABLET PO SCH ×2 (09:00→18:52)
[2017-05-04] MEDS: predniSONE 2.5 MG TABLET PO SCH (09:46)
[2017-05-04] MEDS ORDERED: IV NORMAL SALINE 100 ML ONE (10:17)
[2017-05-04] MEDS ORDERED: IOHEXOL 350 100 ML INFUS..BTL ONE (10:17)
[2017-05-04] MEDS ORDERED: NORMAL SALINE FLUSH 10 ML DISP.SYRIN ONE (10:17)
[2017-05-04 11:08] VITALS: BP 151/90
[2017-05-04] MEDS: VITAMINS A AND D OINT TP PRN (12:13)
[2017-05-04 15:14] VITALS: BP 153/90
[2017-05-04] MEDS ORDERED: EPOETIN ALFA 10,000 UNITS/ML VIAL IVP ONE (16:29)
[2017-05-04 20:00] VITALS: BP 140/57
[2017-05-04] MEDS: diphenhydrAMINE 50 MG CAPSULE PO PRN (21:03)
[2017-05-05] MEDS: diphenhydrAMINE 50 MG CAPSULE PO PRN ×4 (00:55→22:40)
[2017-05-05] MEDS: HYDROMORPHONE 2 MG/1 ML DISP.SYRIN IV PRN ×6 (01:02→22:42)
[2017-05-05] MEDS: hydrALAZINE HCL 25 MG TABLET PO SCH ×3 (05:18→22:12)
[2017-05-05 06:17] VITALS: BP 155/95
[2017-05-05] MEDS: PANTOPRAZOLE SODIUM 40 MG TABLET.DR PO SCH ×2 (06:46→16:49)
[2017-05-05] MEDS: HYDROXYCHLOROQUINE SULFATE 200 MG TABLET PO SCH (08:23)
[2017-05-05] MEDS: FOLIC ACID/VITAMIN B COMP W-C TABLET PO SCH (08:23)
[2017-05-05] MEDS: APIXABAN 5 MG TABLET PO SCH ×2 (08:23→16:52)
[2017-05-05] MEDS: SEVELAMER CARBONATE 800 MG TABLET PO SCH ×3 (08:23→17:00)
[2017-05-05] MEDS: predniSONE 2.5 MG TABLET PO SCH (08:23)
[2017-05-05] MEDS: LEVETIRACETAM 500 MG TABLET PO SCH ×2 (08:23→16:49)
[2017-05-05] MEDS: CARVEDILOL 25 MG TABLET PO SCH ×2 (08:25→16:51)
[2017-05-05] MEDS: DOXAZOSIN 1 MG TABLET PO SCH ×2 (08:25→16:54)
[2017-05-05] MEDS: BENAZEPRIL HCL 20 MG TABLET PO SCH ×2 (08:26→16:51)
[2017-05-05] MEDS: AMLODIPINE 10 MG TABLET PO SCH (08:27)
[2017-05-05] MEDS: CINACALCET HCL 30 MG TABLET PO SCH (08:27)
[2017-05-05] MEDS: VITAMINS A AND D OINT TP PRN (10:03)
[2017-05-05] MEDS ORDERED: DOCUSATE SODIUM 100 MG CAPSULE PO PRN (10:45)
[2017-05-05 11:08] VITALS: BP 128/76
[2017-05-05] MEDS: ONDANSETRON 4 MG/2 ML VIAL IV PRN (13:41)
[2017-05-05 15:55] VITALS: BP 130/83
[2017-05-05 20:55] VITALS: BP 126/70
[2017-05-06] MEDS: HYDROMORPHONE 2 MG/1 ML DISP.SYRIN IV PRN ×4 (02:52→15:05)
[2017-05-06] MEDS: hydrALAZINE HCL 25 MG TABLET PO SCH ×2 (06:00→13:40)
[2017-05-06] MEDS: PANTOPRAZOLE SODIUM 40 MG TABLET.DR PO SCH ×2 (06:24→16:33)
[2017-05-06] MEDS: diphenhydrAMINE 50 MG CAPSULE PO PRN (07:04)
[2017-05-06] MEDS: BENAZEPRIL HCL 20 MG TABLET PO SCH ×2 (09:00→16:33)
[2017-05-06] MEDS: CINACALCET HCL 30 MG TABLET PO SCH (09:00)
[2017-05-06] MEDS: CARVEDILOL 25 MG TABLET PO SCH ×2 (09:00→16:33)
[2017-05-06] MEDS: SEVELAMER CARBONATE 800 MG TABLET PO SCH ×3 (09:07→18:00)
[2017-05-06] MEDS: DOXAZOSIN 1 MG TABLET PO SCH ×2 (09:08→16:33)
[2017-05-06] MEDS: FOLIC ACID/VITAMIN B COMP W-C TABLET PO SCH (09:09)
[2017-05-06] MEDS: LEVETIRACETAM 500 MG TABLET PO SCH ×2 (09:09→16:33)
[2017-05-06] MEDS: AMLODIPINE 10 MG TABLET PO SCH (09:09)
[2017-05-06] MEDS: predniSONE 2.5 MG TABLET PO SCH (09:09)
[2017-05-06] MEDS: APIXABAN 5 MG TABLET PO SCH ×2 (09:10→16:34)
[2017-05-06] MEDS: HYDROXYCHLOROQUINE SULFATE 200 MG TABLET PO SCH (09:10)
[2017-05-06] MEDS: VITAMINS A AND D OINT TP PRN (09:12)
[2017-05-06 11:40] VITALS: BP 140/92
[2017-05-06 15:40] VITALS: BP 135/85
[2017-05-06] MEDS: ONDANSETRON 4 MG/2 ML VIAL IV PRN (16:28)
[2017-05-06 16:33] VITALS: BP 150/92
== END 2017-05-06 18:05 | disposition home or self-care (01) | DRG 314 ==
LOC: ER 07:20 → TELE 15:22 → MED 05-03 15:57
PROVIDERS: ADMIT Internal Medicine; ATTEND Internal Medicine
PROC: 5A1D70Z Performance of Urinary Filtration, Intermittent, Less than 6 Hours Per Day (ICD-10-PCS; principal; 2017-05-02)
PROC: 05H533Z Insertion of Infusion Device into Right Subclavian Vein, Percutaneous Approach (ICD-10-PCS; 2017-05-02)
DX: T82.858A Stenosis of other vascular prosthetic devices, implants and grafts, initial encounter (principal); N18.6 End stage renal disease; E11.22 Type 2 diabetes mellitus with diabetic chronic kidney disease; D69.6 Thrombocytopenia, unspecified; I12.0 Hypertensive chronic kidney disease with stage 5 chronic kidney disease or end stage renal disease; M32.9 Systemic lupus erythematosus, unspecified; E87.5 Hyperkalemia; F11.20 Opioid dependence, uncomplicated; N25.81 Secondary hyperparathyroidism of renal origin; Z99.2 Dependence on renal dialysis; Z79.899 Other long term (current) drug therapy; Z79.01 Long term (current) use of anticoagulants; G40.909 Epilepsy, unspecified, not intractable, without status epilepticus; K21.9 Gastro-esophageal reflux disease without esophagitis; Y83.2 Surgical operation with anastomosis, bypass or graft as the cause of abnormal reaction of the patient, or of later complication, without mention of misadventure at the time of the procedure; Z86.73 Personal history of transient ischemic attack (TIA), and cerebral infarction without residual deficits; Z86.718 Personal history of other venous thrombosis and embolism; Z82.49 Family history of ischemic heart disease and other diseases of the circulatory system; G89.29 Other chronic pain; K58.9 Irritable bowel syndrome, unspecified; G43.909 Migraine, unspecified, not intractable, without status migrainosus; M79.652 Pain in left thigh; T82.868D Thrombosis due to vascular prosthetic devices, implants and grafts, subsequent encounter
CPT/HCPCS: 36415; 71045; 71275; 84703; 85025; 85730; 90937; 93005; A4663; J0885; J1170; J2405; J3490; J7512; Q0163; Q9967

== ENCOUNTER 2018-04-17 08:07 | Inpatient (IN) | payer OTHER, MEDICAID ==
[~2018-04-17] VITALS: Ht 157.5 cm; Wt 56.7 kg
[~2018-04-17 08:07] MED LIST changes: -AMLO10TA2 PO; +AMLO10TA7 PO; -BENA40TA2 PO; +BENA40TA8 PO; +ELIQUIS 2.5 MG TABLET PO; -HYDR2TAB4 PO
[2018-04-17] MEDS ORDERED: diphenhydrAMINE 50 MG/1 ML VIAL ONE ×2 (09:00→11:19)
[2018-04-17] MEDS ORDERED: HYDROMORPHONE 2 MG/1 ML DISP.SYRIN ONE ×2 (09:01→11:20)
--- NOTE | 2018-04-17 09:08 | NUR ---
CALLED [employer] FOR PICC LINE
[2018-04-17] MEDS ORDERED: CLON0.1T PO (09:14)
[2018-04-17] MEDS ORDERED: [UNRECOGNIZED DRUG - REMARK] (09:14)
[2018-04-17] MEDS ORDERED: HYDROMORPHONE 1 MG/1 ML DISP.SYRIN IM ONE ×2 (09:15→11:15)
[2018-04-17] MEDS ORDERED: diphenhydrAMINE 50 MG/1 ML VIAL IM ONE ×2 (09:15→11:15)
[2018-04-17 09:29] LABS: BASOPHILS # (AUTO) 0.1 K/uL (0.0-8.0); BASOPHILS % (AUTO) 0.9 % (0.0-2.0); EOSINOPHILS # (AUTO) 0.2 K/uL (0.0-0.7); EOSINOPHILS % (AUTO) 3.8 % (0.0-7.0); HEMOGLOBIN 10.7 g/dL (10.9-14.3); LYMPHOCYTES # (AUTO) 0.7 K/uL (20.0-40.0); LYMPHOCYTES % (AUTO) 12.7 % (20.5-51.5); MEAN CORPUSCULAR HEMOGLOBIN 31.3 uug (24.7-32.8); MEAN CORPUSCULAR HGB CONC 32 g/dL (32.3-35.6); MEAN CORPUSCULAR VOLUME 96.6 fL (75.5-95.3); MONOCYTES # (AUTO) 0.5 K/uL (2.0-10.0); MONOCYTES % (AUTO) 8.4 % (0.0-11.0); NEUTROPHILS # (AUTO) 4.3 K/uL (1.8-8.9); NEUTROPHILS % (AUTO) 74.2 % (38.5-71.5); PLATELET COUNT (AUTO) 98 K/uL (179-408); RED BLOOD CELL COUNT(AUTO) 3.42 MIL/uL (3.63-4.92); WHITE BLOOD COUNT (AUTO) 5.8 K/uL (3.8-11.8)
[2018-04-17 09:45] LABS: ALANINE AMINOTRANSFERASE 15 U/L (14-59); ALKALINE PHOSPHATASE 64 U/L (50-136); ASPARTATE AMINOTRANSFERASE 13 U/L (15-37); BILIRUBIN,DIRECT 0.2 mg/dL (0.0-0.2); BILIRUBIN,TOTAL 0.6 mg/dL (0.2-1.0); CARBON DIOXIDE 29 mmol/L (21-32); CHLORIDE 94 mmol/L (98-107); GLUCOSE 95 mg/dL (74-106); LIPASE 118 U/L (73-393); POTASSIUM 4.7 mmol/L (3.5-5.1); TOTAL PROTEIN, SERUM 8.7 g/dL (6.4-8.2); UREA NITROGEN, BLOOD 39 mg/dL (7-18)
[2018-04-17 09:47] LABS: CREATININE 9.4 mg/dL (0.6-1.3)
--- NOTE | 2018-04-17 10:19 | NUR ---
CALLED DR. HANNA OFFICE AND LEFT A MESSAGE.
--- NOTE | 2018-04-17 10:31 | NUR ---
ALYCIA WARREN HERE TO PLACE THE PICCLINE. PT REFUSES PICCLINE OR MIDLINE. PT SAYS SHE HAS TOO MANY SCAR TISSUES. PT SAYS ONLY CENTRAL LINE WORKS FOR HER. DR. VALENTINO NOTIFIED.
--- NOTE | 2018-04-17 10:42 | NUR ---
DR. VALENTINO TALKING TO DR. ROSARIO OVER THE PHONE
--- NOTE | 2018-04-17 10:45 | NUR ---
Gio garcia in ED - 04/17/[address] OLMOS TALKING TO DR. OLMOS OVER THE PHONE
--- NOTE | 2018-04-17 10:45 | NUR ---
DR. VALENTINO TALKING TO DR. OLMOS OVER THE PHONE
--- NOTE | 2018-04-17 10:46 | NUR ---
PT ADMISSION VS TRANSFER PENDING ON INSURANCE AUTHORIZATION AT THIS POINT.
[2018-04-17 10:58] LABS: *BILIRUBIN,URIN NEGATIVE (NEGATIVE); *BLOOD, URINE Trace-intact (NEGATIVE); *CLARITY,URINE CLEAR (CLEAR); *COLOR,URINE YELLOW (YELLOW); *KETONES,URINE NEGATIVE (NEGATIVE); *UROBILINOGEN,URINE 0.2 E.U./dl (NORMAL); LEUKOCYTE ESTERASE ,URINE NEGATIVE (NEGATIVE); NITRITE, URINE NEGATIVE (NEGATIVE); PH,URINE 8.5 (5.0-8.0); UGLUCOSE TRACE (NEGATIVE)
[2018-04-17 11:07] LABS: RBC,URINE 0-3 /HPF (0-3)
[2018-04-17 11:12] LABS: BACTERIA,URINE FEW /HPF (NONE SEEN); MUCUS,URINE FEW /LPF (0-FEW); SQUAMOUS EPITHELIAL CELL,UR MODERATE /HPF (NONE SEEN); WBC,URINE 0-3 /HPF (0-3)
--- NOTE | 2018-04-17 12:30 | NUR ---
INSURANCE VERIFICATION STILL PENDING. PT RESTING, NO SIGN OF DISTRESS AT THIS TIME.
--- NOTE | 2018-04-17 13:00 | NUR ---
PT CLEARED TO BE ADMITTED HERE PER ER REGISTRY.
--- NOTE | 2018-04-17 15:00 | NUR ---
PT TRANSFERED TO FLOOR IN STABLE CONDITION.
[2018-04-17 16:09] VITALS: BP 172/111
[2018-04-17 19:00] VITALS: BP 160/98
--- NOTE | 2018-04-17 19:30 | NUR ---
RECEIVED PATIENT LYING IN BED. IN NO ACUTE DISTRESS. ALERT AND ORIENTED. HAS COMPLAINTS OF 8/10 PAIN IN THE ABDOMINAL AREA. NO COMPLAINTS OF SOB. IV HEPLOCK IS INTACT AND PATENT ON THE LEFT WRIST. SAFETY MEASURES INITIATED. BED IS LOW AND LOCKED, CALL LIGHT WITHIN REACH. WILL CONTINUE TO MONITOR.
[2018-04-17] MEDS ORDERED: ONDANSETRON 4 MG/2 ML VIAL IV PRN (19:45)
[2018-04-17] MEDS ORDERED: ACETAMINOPHEN 325 MG TABLET PO PRN (19:45)
[2018-04-17] MEDS: HYDROMORPHONE 2 MG/1 ML DISP.SYRIN IV PRN (21:53)
[2018-04-17] MEDS: diphenhydrAMINE 50 MG/1 ML VIAL IV PRN (21:54)
[2018-04-17] MEDS ORDERED: AMLODIPINE 10 MG TABLET PO SCH (22:00)
[2018-04-17] MEDS ORDERED: PIPERACILLIN/TAZOBACTAM/D5W 2.25 G in PREMIXED 1 EACH IV SCH (22:00)
[2018-04-17] MEDS ORDERED: PIPERACILLIN/TAZOBACTAM/D5W 3.375 G in PREMIXED 1 EACH IV SCH (22:00)
[2018-04-17] MEDS ORDERED: CARVEDILOL 25 MG TABLET PO SCH (22:00)
[2018-04-17] MEDS ORDERED: PIPERACILLIN SODIUM/TAZO 3.375 GM VIAL ONE (22:22)
[2018-04-17] MEDS: BENAZEPRIL HCL 20 MG TABLET PO SCH (23:03)
[2018-04-17] MEDS: hydrALAZINE HCL 25 MG TABLET PO SCH (23:04)
[2018-04-17] MEDS: CLONIDINE HCL 0.1 MG TABLET PO SCH (23:04)
[2018-04-18] VITALS: BP 132/87
[2018-04-18] MEDS: HYDROMORPHONE 2 MG/1 ML DISP.SYRIN IV PRN ×5 (03:23→22:58)
[2018-04-18 04:00] VITALS: BP 141/88
[2018-04-18] MEDS: PANTOPRAZOLE SODIUM 40 MG TABLET.DR PO SCH (06:00)
[2018-04-18] MEDS: CLONIDINE HCL 0.1 MG TABLET PO SCH ×3 (06:00→22:59)
--- NOTE | 2018-04-18 06:51 | NUR ---
PATIENT SLEPT WELL THROUGHOUT NIGHT. NO SIGNS OF ACUTE DISTRESS. ALL MEDICATIONS GIVEN ORDERED. DILAUDID WAS GIVEN FOR PAIN AT 2145H AND 0323H WITH EFFECT. NO COMPLAINTS OF SOB. SAFETY MEASURES GIVEN. IV ON THE LEFT WRIST IS INTACT AND PATENT.
[2018-04-18 08:11] LABS: BASOPHILS % (AUTO) 0.7 % (0.0-2.0); EOSINOPHILS # (AUTO) 0.2 K/uL (0.0-0.7); EOSINOPHILS % (AUTO) 4.5 % (0.0-7.0); HEMOGLOBIN 12.4 g/dL (10.9-14.3); LYMPHOCYTES # (AUTO) 1.3 K/uL (20.0-40.0); LYMPHOCYTES % (AUTO) 24.6 % (20.5-51.5); MEAN CORPUSCULAR HEMOGLOBIN 31.6 uug (24.7-32.8); MEAN CORPUSCULAR HGB CONC 33 g/dL (32.3-35.6); MEAN CORPUSCULAR VOLUME 96.5 fL (75.5-95.3); MONOCYTES # (AUTO) 0.4 K/uL (2.0-10.0); NEUTROPHILS # (AUTO) 3.3 K/uL (1.8-8.9); NEUTROPHILS % (AUTO) 62.2 % (38.5-71.5); PLATELET COUNT (AUTO) 139 K/uL (179-408); RED BLOOD CELL COUNT(AUTO) 3.94 MIL/uL (3.63-4.92); WHITE BLOOD COUNT (AUTO) 5.4 K/uL (3.8-11.8)
[2018-04-18 08:31] LABS: BILIRUBIN,TOTAL 0.8 mg/dL (0.2-1.0); MAGNESIUM 2.5 mg/dL (1.8-2.4); PHOSPHOROUS 4.6 mg/dL (2.5-4.9); POTASSIUM 5.7 mmol/L (3.5-5.1); TOTAL PROTEIN, SERUM 10.1 g/dL (6.4-8.2)
[2018-04-18] MEDS: diphenhydrAMINE 50 MG/1 ML VIAL IV PRN ×3 (08:38→22:58)
[2018-04-18] MEDS: CARVEDILOL 25 MG TABLET PO SCH ×2 (08:39→17:37)
[2018-04-18] MEDS: SEVELAMER CARBONATE 800 MG TABLET PO SCH ×3 (08:39→17:37)
[2018-04-18] MEDS: hydrALAZINE HCL 25 MG TABLET PO SCH ×2 (08:40→20:11)
[2018-04-18] MEDS: DOXAZOSIN 2 MG TABLET PO SCH ×2 (08:40→17:36)
[2018-04-18] MEDS: BENAZEPRIL HCL 20 MG TABLET PO SCH ×2 (08:41→17:36)
[2018-04-18] MEDS: predniSONE 2.5 MG TABLET PO SCH (08:42)
[2018-04-18] MEDS: HYDROXYCHLOROQUINE SULFATE 200 MG TABLET PO SCH (08:42)
[2018-04-18] MEDS ORDERED: CINACALCET HCL 30 MG TABLET PO SCH (09:00)
[2018-04-18] MEDS ORDERED: AMLODIPINE 10 MG TABLET PO SCH (09:00)
[2018-04-18 09:14] LABS: CREATININE 12.3 mg/dL (0.6-1.3)
[2018-04-18 09:34] LABS: THYROID STIMULATING HORMONE 1.642 mIU/mL (0.358-3.740)
[2018-04-18] MEDS ORDERED: PIPERACILLIN/TAZO 0.75 G in IV DEXTROSE 5% 50 ML IV PRN (11:15)
[2018-04-18 11:28] VITALS: BP 141/88
[2018-04-18] MEDS: AMLODIPINE 10 MG TABLET PO SCH (13:17)
[2018-04-18] MEDS: PIPERACILLIN/TAZOBACTAM/D5W 2.25 G in PREMIXED 1 EACH IV SCH ×2 (13:18→22:59)
[2018-04-18] MEDS ORDERED: PIPERACILLIN/TAZOBACTAM/D5W 2.25 G in PREMIXED 1 EACH IV SCH (14:00)
[2018-04-18 15:33] VITALS: BP 132/91
[2018-04-18 19:27] VITALS: BP 140/87
--- NOTE | 2018-04-18 19:30 | NUR ---
nsg: pt received a/o x4, denies pain, n/v, itching. heplock on tko. ambulatory without assist. cont to monitor.
[2018-04-19 03:30] VITALS: BP 134/96
[2018-04-19] MEDS: HYDROMORPHONE 2 MG/1 ML DISP.SYRIN IV PRN ×4 (04:08→22:28)
[2018-04-19] MEDS: diphenhydrAMINE 50 MG/1 ML VIAL IV PRN ×3 (04:08→19:41)
[2018-04-19] MEDS: CLONIDINE HCL 0.1 MG TABLET PO SCH ×3 (05:30→22:00)
[2018-04-19] MEDS: PIPERACILLIN/TAZOBACTAM/D5W 2.25 G in PREMIXED 1 EACH IV SCH (05:31)
[2018-04-19] MEDS: PANTOPRAZOLE SODIUM 40 MG TABLET.DR PO SCH (05:32)
--- NOTE | 2018-04-19 06:00 | NUR ---
nsg: pt received dilaudid and benadryl as requested prn. no acute distress noted. v/s stable.
[2018-04-19] MEDS: SEVELAMER CARBONATE 800 MG TABLET PO SCH ×3 (07:58→17:37)
[2018-04-19] MEDS: HYDROXYCHLOROQUINE SULFATE 200 MG TABLET PO SCH (08:00)
[2018-04-19] MEDS: predniSONE 2.5 MG TABLET PO SCH (08:00)
[2018-04-19] MEDS ORDERED: CINACALCET HCL 30 MG TABLET PO SCH (09:00)
[2018-04-19] MEDS: BENAZEPRIL HCL 20 MG TABLET PO SCH ×2 (09:41→17:38)
[2018-04-19] MEDS: DOXAZOSIN 2 MG TABLET PO SCH ×2 (09:42→17:38)
[2018-04-19] MEDS: AMLODIPINE 10 MG TABLET PO SCH (09:42)
[2018-04-19] MEDS: hydrALAZINE HCL 25 MG TABLET PO SCH ×2 (09:42→21:00)
[2018-04-19] MEDS: CARVEDILOL 25 MG TABLET PO SCH ×2 (09:44→17:38)
[2018-04-19 11:50] VITALS: BP 121/75
[2018-04-19 15:44] VITALS: BP 119/78
[2018-04-19] MEDS ORDERED: PIPERACILLIN/TAZOBACTAM/D5W 2.25 G in PREMIXED 1 EACH IV SCH (17:00)
[2018-04-19 19:28] VITALS: BP 135/91
--- NOTE | 2018-04-19 19:30 | NUR ---
RECEIVED PATIENT IN BED, ALERT ORIENTED, NO SOB NO CHEST PAIN, NO COMPLAIN OF PAIN AT THIS TIME. PATIENT FOR DIALYSIS TONIGHT, AWAITING FOR DIALYSIS NURSE.
[2018-04-19 23:10] VITALS: BP 179/83
[2018-04-19 23:15] VITALS: BP 149/83
--- NOTE | 2018-04-19 23:43 | NUR ---
DIALYSIS WAS DONE, TAKEN OUT 2500 CC PER PATIENT REQUEST ACCORDING TO DIALYSIS NURSE, NO ADVERSE CHANGES NOTED, NO BLEEDING NOTED, FROM SHUNT ON LEFT THIGH, DRESSING INTACT, NO BLEEDING NOTED. CONT TO MONITOR.
--- NOTE | 2018-04-20 00:20 | NUR ---
PATIENT DISCHARGE HOME, PATIENT WILL BE WRIST LINER BY FRIEND, PATIENT STAYING IN THE LOBBY WITH THE GUARDS, PATIENT IN FAIR CONDITION, DICHARGE PAPERS WAS SIGNED AND GIVEN TO PATIENT BY AM NURSE. PATIENT TOOK ALL BELONINGS.
== END 2018-04-20 00:41 | disposition home or self-care (01) | DRG 371 ==
LOC: ER 08:07 → TELE 13:41 → MED 04-18 18:49
PROVIDERS: ADMIT Internal Medicine; ATTEND Internal Medicine
PROC: 5A1D70Z Performance of Urinary Filtration, Intermittent, Less than 6 Hours Per Day (ICD-10-PCS; principal; 2018-04-19)
DX: A04.9 Bacterial intestinal infection, unspecified (principal); N18.6 End stage renal disease; I13.11 Hypertensive heart and chronic kidney disease without heart failure, with stage 5 chronic kidney disease, or end stage renal disease; F11.20 Opioid dependence, uncomplicated; K52.9 Noninfective gastroenteritis and colitis, unspecified; E11.22 Type 2 diabetes mellitus with diabetic chronic kidney disease; Z99.2 Dependence on renal dialysis; M79.7 Fibromyalgia; G40.909 Epilepsy, unspecified, not intractable, without status epilepticus; K21.9 Gastro-esophageal reflux disease without esophagitis; G89.4 Chronic pain syndrome; M32.14 Glomerular disease in systemic lupus erythematosus; Z86.718 Personal history of other venous thrombosis and embolism; D63.8 Anemia in other chronic diseases classified elsewhere; K58.1 Irritable bowel syndrome with constipation; Z87.898 Personal history of other specified conditions; R16.2 Hepatomegaly with splenomegaly, not elsewhere classified; E87.5 Hyperkalemia; Z79.01 Long term (current) use of anticoagulants; M32.19 Other organ or system involvement in systemic lupus erythematosus; M14.80 Arthropathies in other specified diseases classified elsewhere, unspecified site; Z79.52 Long term (current) use of systemic steroids; Z86.73 Personal history of transient ischemic attack (TIA), and cerebral infarction without residual deficits; Z90.49 Acquired absence of other specified parts of digestive tract; Z79.899 Other long term (current) drug therapy; Z91.018 Allergy to other foods; Z88.6 Allergy status to analgesic agent; Z91.040 Latex allergy status; Z88.8 Allergy status to other drugs, medicaments and biological substances; Z81.8 Family history of other mental and behavioral disorders
CPT/HCPCS: 36415; 70030-TC; 71045; 83605; 83690; 83735; 84100; 84443; 85025; 85730; 90937; 93005; A4663; G0378; J1170; J1200; J2405; J2543; J7050; J7060; J7512

== ENCOUNTER 2018-05-15 05:14 | Inpatient (IN) | payer OTHER, MEDICAID ==
[~2018-05-15] VITALS: Ht 157.5 cm; Wt 56.0 kg
[~2018-05-15 05:14] MED LIST changes: +CLON0.1T PO; -ELIQUIS 2.5 MG TABLET PO; -FOLI0.8T2 PO; -HYDR8TAB2 PO; -LEVE500T9 PO; +[UNRECOGNIZED DRUG - REMARK]
--- NOTE | 2018-05-15 05:23 | NUR ---
Ambulated to ER Room 4B, c/o abdominal pain LUQ increasingly worse today.
--- NOTE | 2018-05-15 05:35 | NUR ---
Seen and evaluated by Dr. Albarran.
--- NOTE | 2018-05-15 06:00 | NUR ---
Lab called in critical value of serum creat 13. Pt is a dialysis pt. Dr. Albarran made aware.
[2018-05-15 06:05] LABS: BASOPHILS % (AUTO) 0.7 % (0.0-2.0); EOSINOPHILS # (AUTO) 0.1 K/uL (0.0-0.7); HEMATOCRIT 32.7 % (31.2-41.9); HEMOGLOBIN 10.6 g/dL (10.9-14.3); LYMPHOCYTES # (AUTO) 0.7 K/uL (20.0-40.0); LYMPHOCYTES % (AUTO) 21.3 % (20.5-51.5); MEAN CORPUSCULAR HEMOGLOBIN 30.8 uug (24.7-32.8); MEAN CORPUSCULAR HGB CONC 33 g/dL (32.3-35.6); MONOCYTES # (AUTO) 0.3 K/uL (2.0-10.0); NEUTROPHILS # (AUTO) 2.1 K/uL (1.8-8.9); PLATELET COUNT (AUTO) 107 K/uL (179-408); RED BLOOD CELL COUNT(AUTO) 3.44 MIL/uL (3.63-4.92); WHITE BLOOD COUNT (AUTO) 3.2 K/uL (3.8-11.8)
[2018-05-15 06:12] LABS: CARBON DIOXIDE 26 mmol/L (21-32); CHLORIDE 98 mmol/L (98-107); GLUCOSE 81 mg/dL (74-106); POTASSIUM 4.7 mmol/L (3.5-5.1); UREA NITROGEN, BLOOD 45 mg/dL (7-18)
[2018-05-15 06:18] LABS: ALANINE AMINOTRANSFERASE 9 U/L (14-59); ALKALINE PHOSPHATASE 52 U/L (50-136); ASPARTATE AMINOTRANSFERASE 12 U/L (15-37); BILIRUBIN,DIRECT 0.1 mg/dL (0.0-0.2); BILIRUBIN,TOTAL 0.5 mg/dL (0.2-1.0); LIPASE 176 U/L (73-393); TOTAL PROTEIN, SERUM 8.2 g/dL (6.4-8.2)
[2018-05-15] MEDS ORDERED: ESOM40CA PO (06:27)
--- NOTE | 2018-05-15 06:40 | NUR ---
Seen and evaluated by Dr. Mackay.
--- NOTE | 2018-05-15 06:40 | NUR ---
MDs are aware of pt's high BP.
[2018-05-15 06:44] LABS: MAGNESIUM 2.7 mg/dL (1.8-2.4); PHOSPHOROUS 5.9 mg/dL (2.5-4.9)
--- NOTE | 2018-05-15 07:00 | NUR ---
[employer] Analyst here, brought pt to Xray Dept for CT via shasta.
--- NOTE | 2018-05-15 07:05 | NUR ---
SBAR report given to Aaron Huntley RN.
--- NOTE | 2018-05-15 07:18 | NUR ---
RECEIEVED SHIFT REPORT FROM ALYCIA AGUILAR. RECEIVED PT RESTING COMFORTABLY IN BED. PT DENIES ANY DISCOMFORT AT THIS TIME.
--- NOTE | 2018-05-15 07:21 | NUR ---
PT VS HYPERTENSIVE, ER MD AWARE.
--- NOTE | 2018-05-15 07:29 | NUR ---
CALLED [facility] - AWAITING CALLBACK FROM DR. OLMOS. ATTEMPT 1.
--- NOTE | 2018-05-15 07:31 | NUR ---
CALLED RADIOLOGY FOR [employer].
--- NOTE | 2018-05-15 07:46 | NUR ---
KELI CHEN SPEAKING W/ DR. OLMOS FOR NEPHROLOGY CONSULT.
--- NOTE | 2018-05-15 07:49 | NUR ---
CALLED NURSING COMPUTER SYSTEMS ENGINEER, JETT, REQUESTED FOR MID-LINE RN.
--- NOTE | 2018-05-15 08:21 | NUR ---
US TECH ETA 10 MIN.
--- NOTE | 2018-05-15 08:38 | NUR ---
US TECH AT BEDSIDE.
--- NOTE | 2018-05-15 09:17 | NUR ---
CALLED [facility] FOR PANEL CALL. AWAITING CALLBACK. ATTEMPT 1.
--- NOTE | 2018-05-15 10:10 | NUR ---
AWAITING FOR ARRIVAL OF PICC LINE RN.
--- NOTE | 2018-05-15 10:47 | NUR ---
PICC-LINE RN AT BEDSIDE.
[2018-05-15] MEDS ORDERED: LIDOCAINE HCL 1% 20 ML VIAL IJ ONE (11:15)
--- NOTE | 2018-05-15 11:55 | NUR ---
20G MID-LINE IN R FOREARM ESTABLISHED BY DAKOTAH PICC-LINE RN.
[2018-05-15] MEDS ORDERED: SWABABLE VALVE TRANSFER SET EA MC ONE (12:06)
[2018-05-15] MEDS ORDERED: IOHEXOL 350 100 ML INFUS..BTL ONE (12:06)
[2018-05-15] MEDS ORDERED: IV NORMAL SALINE 250 ML IV ONE (12:06)
--- NOTE | 2018-05-15 12:19 | NUR ---
PT TAKEN TO RADIOLOGY FOR CT SCAN.
--- NOTE | 2018-05-15 12:39 | NUR ---
PT BACK IN ER FROM RADIOLOGY.
[2018-05-15] MEDS ORDERED: diphenhydrAMINE 50 MG/1 ML VIAL IV ONE (15:00)
[2018-05-15] MEDS ORDERED: HYDROMORPHONE 1 MG/1 ML DISP.SYRIN IV ONE (15:00)
[2018-05-15] MEDS ORDERED: diphenhydrAMINE 50 MG/1 ML VIAL ONE (15:03)
[2018-05-15] MEDS ORDERED: HYDROMORPHONE 1 MG/1 ML DISP.SYRIN ONE (15:04)
--- NOTE | 2018-05-15 15:30 | NUR ---
PAGED [employer] FOR PANEL CALL.
--- NOTE | 2018-05-15 15:44 | NUR ---
PAGED [facility] FOR PANEL CALL - AWAITING CALLBACK. ATTEMPT 2.
--- NOTE | 2018-05-15 16:44 | NUR ---
ADMITTING REPORT GIVEN TO BRYON TONG.
--- NOTE | 2018-05-15 16:47 | NUR ---
PT HAS A DIALYSIS SHUNT ON THE L INNER THIGH.
--- NOTE | 2018-05-15 16:50 | NUR ---
Pt. admitted to M/S 321, under care of Dr. ROSARIO. Belongs List completed
--- NOTE | 2018-05-15 17:00 | NUR ---
RECEIVED PATIENT FROM ED 32 YEARS OLD FEMALE TO ROOM 221 WITH DX OF ABDOMINAL PAIN PLACED INTO BED FIXED AND MADE COMFORTABLE ORIENTED TO ROOM AND FACILITY PROTOCOL PATIENT HAS AV SHUNT ON HER LEFT THIGH WITH GOOD BRUIT AND THRILL LEFT FA MID LINE INTACT CALLED DR ROSARIO RE ADMISSION ORDERS WITH DIET ORDER AT THIS TIME.
[2018-05-15 17:34] VITALS: BP 168/117
[2018-05-15] MEDS: CARVEDILOL 25 MG TABLET PO SCH (20:43)
[2018-05-15] MEDS: CLONIDINE HCL 0.1 MG TABLET PO SCH (20:45)
[2018-05-15] MEDS: AMLODIPINE 10 MG TABLET PO SCH (20:45)
[2018-05-15] MEDS: HYDROMORPHONE 1 MG/1 ML DISP.SYRIN IV PRN (20:50)
--- NOTE | 2018-05-15 21:14 | NUR ---
PATIENT COMPLAIN OF ITCHING NOTIFY DR. NARAYANAN WITH ORDER.
[2018-05-15] MEDS: diphenhydrAMINE 50 MG/1 ML VIAL IV PRN (21:22)
[2018-05-15 21:25] VITALS: BP 166/111
[2018-05-16] MEDS: CLONIDINE HCL 0.1 MG TABLET PO SCH ×3 (03:15→19:54)
[2018-05-16] MEDS: diphenhydrAMINE 50 MG/1 ML VIAL IV PRN ×4 (03:36→23:25)
[2018-05-16] MEDS: HYDROMORPHONE 1 MG/1 ML DISP.SYRIN IV PRN ×5 (03:38→23:25)
--- NOTE | 2018-05-16 05:55 | NUR ---
PATIENT SLEPT MOST OF THE NIGHT, CONT ON PAIN MANAGEMENT ON LEFT SIDE ABDOMEN FLANK, WITH NO ADVERSE REACTION NOTED. AV SHUNT ON LEFT THIGH DRESSING INTACT, DIALYSIS ON GOING AT THIS TIME. CONT TO MONITOR.
[2018-05-16 06:01] VITALS: BP 153/99
[2018-05-16] MEDS: SEVELAMER CARBONATE 800 MG TABLET PO SCH ×3 (07:01→17:19)
[2018-05-16] MEDS: CARVEDILOL 25 MG TABLET PO SCH ×2 (07:01→19:54)
[2018-05-16] MEDS: AMLODIPINE 10 MG TABLET PO SCH ×2 (07:01→19:53)
--- NOTE | 2018-05-16 07:03 | NUR ---
PATIENT 0715 BP MEDS NOT GIVEN, PATIENT HAVING DIALYSIS AT THIS TIME, PATIENT PREFER NOT TO TAKE TIME DUE WORRIES THAT BP WILL GO DOWN SO LOW. ENDORSED TO NEXT SHIFT.
--- NOTE | 2018-05-16 07:54 | NUR ---
DIALYSIS REMAINS IN PROGRESS AT THIS TIME PATIENT IS RESTING WITH NO C/O NOTED WILL CONTINUE TO OBSERVE
[2018-05-16] MEDS ORDERED: SEVELAMER CARBONATE 3200 MG PO SCH (08:00)
[2018-05-16] MEDS ORDERED: Medication Not On Formulary EA (Benazepril Hcl 40 MG) PO SCH (09:00)
[2018-05-16] MEDS: HYDROXYCHLOROQUINE SULFATE 200 MG TABLET PO SCH (09:08)
[2018-05-16] MEDS: predniSONE 2.5 MG TABLET PO SCH (09:09)
[2018-05-16] MEDS: DOXAZOSIN 1 MG TABLET PO SCH ×2 (09:09→17:20)
[2018-05-16] MEDS: hydrALAZINE HCL 25 MG TABLET PO SCH ×2 (09:11→17:20)
[2018-05-16] MEDS: BENAZEPRIL HCL 20 MG TABLET PO SCH (09:12)
[2018-05-16 12:05] VITALS: BP 155/101
[2018-05-16 16:40] VITALS: BP 169/115
--- NOTE | 2018-05-16 19:10 | NUR ---
Received patient lying in bed. AAOx4. In no acute distress. Denies any pain or SOB. Midline on right FA intact and patent. Dialysis site on left thigh with bruit and thrill present. Needs assessed and attended to. Safety measure initiated and call eubanks within reach.
[2018-05-16] MEDS ORDERED: CINACALCET HCL 30 MG TABLET PO SCH (19:15)
[2018-05-16 19:40] VITALS: BP 164/108
[2018-05-16] MEDS ORDERED: FOLI0.8T2 PO (19:43)
[2018-05-17] MEDS: CLONIDINE HCL 0.1 MG TABLET PO SCH ×3 (02:49→20:34)
[2018-05-17] MEDS: HYDROMORPHONE 1 MG/1 ML DISP.SYRIN IV PRN ×4 (03:26→19:41)
[2018-05-17 03:42] VITALS: BP 122/81
--- NOTE | 2018-05-17 04:43 | NUR ---
INFORMATION SENT: [facility] NOTES 05/16,CONSULTATION,UR 05/16 INSURANCE NAME: [employer]/SC[employer] / [employer] FAX NUMBER: [phone] / [phone] FAX SENT
[2018-05-17] MEDS: diphenhydrAMINE 50 MG/1 ML VIAL IV PRN ×3 (05:24→19:40)
--- NOTE | 2018-05-17 06:09 | NUR ---
AAOx4. In no acute distress. Denies any pain or SOB. Midline on right FA intact and patent. Dialysis site on left thigh with bruit and thrill present. Needs attended to and met. Safety measure maintained and call eubanks within reach.
[2018-05-17] MEDS: AMLODIPINE 10 MG TABLET PO SCH ×2 (06:21→20:34)
[2018-05-17] MEDS: CARVEDILOL 25 MG TABLET PO SCH ×2 (06:21→20:34)
[2018-05-17 06:43] LABS: BASOPHILS % (AUTO) 1.1 % (0.0-2.0); EOSINOPHILS # (AUTO) 0.1 K/uL (0.0-0.7); EOSINOPHILS % (AUTO) 4.4 % (0.0-7.0); HEMATOCRIT 28.3 % (31.2-41.9); HEMOGLOBIN 9.3 g/dL (10.9-14.3); LYMPHOCYTES # (AUTO) 0.8 K/uL (20.0-40.0); LYMPHOCYTES % (AUTO) 28.3 % (20.5-51.5); MEAN CORPUSCULAR HEMOGLOBIN 31.1 uug (24.7-32.8); MEAN CORPUSCULAR HGB CONC 33 g/dL (32.3-35.6); MONOCYTES # (AUTO) 0.3 K/uL (2.0-10.0); MONOCYTES % (AUTO) 12.1 % (0.0-11.0); NEUTROPHILS # (AUTO) 1.5 K/uL (1.8-8.9); NEUTROPHILS % (AUTO) 54.1 % (38.5-71.5); PLATELET COUNT (AUTO) 89 K/uL (179-408); RED BLOOD CELL COUNT(AUTO) 2.98 MIL/uL (3.63-4.92); WHITE BLOOD COUNT (AUTO) 2.8 K/uL (3.8-11.8)
[2018-05-17 07:10] LABS: POTASSIUM 5.9 mmol/L (3.5-5.1)
[2018-05-17 07:13] LABS: CREATININE 11.8 mg/dL (0.6-1.3)
--- NOTE | 2018-05-17 07:50 | NUR ---
Patient in bed resting comfortably with no acute distress noted at this time. Denies any pain. IV midline on forearm intact and patent. Dialysis site on left thigh with bruit and thrill present. Safety provide and call eubanks within reach.
[2018-05-17] MEDS: SEVELAMER CARBONATE 800 MG TABLET PO SCH ×3 (08:49→17:45)
[2018-05-17] MEDS: FOLIC ACID/VITAMIN B COMP W-C TABLET PO SCH (08:49)
[2018-05-17] MEDS: predniSONE 2.5 MG TABLET PO SCH (08:51)
[2018-05-17] MEDS: DOXAZOSIN 1 MG TABLET PO SCH ×2 (08:52→17:00)
[2018-05-17] MEDS: hydrALAZINE HCL 25 MG TABLET PO SCH ×2 (08:53→17:00)
[2018-05-17] MEDS: BENAZEPRIL HCL 20 MG TABLET PO SCH (08:54)
[2018-05-17] MEDS: HYDROXYCHLOROQUINE SULFATE 200 MG TABLET PO SCH (08:58)
[2018-05-17 11:26] VITALS: BP 133/83
[2018-05-17 15:17] VITALS: BP 120/77
[2018-05-17] MEDS ORDERED: PANTOPRAZOLE SODIUM 40 MG TABLET.DR PO ONE (16:00)
--- NOTE | 2018-05-17 18:33 | NUR ---
Patient in bed resting comfortably with no acute distress noted at this time. Having an ongoing dialysis. Denies any pain. IV midline on forearm intact and patent. Dialysis site on left thigh with bruit and thrill present. will continue care with gas maker helper nurse
--- NOTE | 2018-05-17 19:20 | NUR ---
Received patient lying in bed. AAOx4. In no acute distress. Complain of left side abdominal pain. Will provide Dilaudid 1mg IV PRN per order. Midline on right FA intact and patent. Dialysis site on left thigh with bruit and thrill present. Needs assessed and attended to. Safety measure initiated and call eubanks within reach.
[2018-05-17 19:24] VITALS: BP 145/91
[2018-05-18] MEDS: HYDROMORPHONE 1 MG/1 ML DISP.SYRIN IV PRN ×3 (00:10→11:13)
[2018-05-18] MEDS: diphenhydrAMINE 50 MG/1 ML VIAL IV PRN ×2 (01:45→08:28)
[2018-05-18] MEDS: CLONIDINE HCL 0.1 MG TABLET PO SCH ×3 (02:37→11:15)
--- NOTE | 2018-05-18 03:31 | NUR ---
INFORMATION SENT: [facility] NOTES 05/17,CONSULTATION,UR 05/17 INSURANCE NAME: [employer] FAX NUMBER: [phone] / [phone] FAX SENT
[2018-05-18 03:35] VITALS: BP_SYST 132; BP_SYST 138; BP_DIAS 84; BP_DIAS 91
[2018-05-18] MEDS: AMLODIPINE 10 MG TABLET PO SCH (06:20)
[2018-05-18] MEDS: CARVEDILOL 25 MG TABLET PO SCH (06:21)
--- NOTE | 2018-05-18 06:27 | NUR ---
AAOx4. In no acute distress. Denies any SOB. Dilaudid 1mg IV PRN per order given for complain of pain and effective. Midline on right FA intact and patent. Dialysis site on left thigh with bruit and thrill present. Needs attended to and met. Safety measure maintained and call eubanks within reach.
[2018-05-18] MEDS ORDERED: PANTOPRAZOLE SODIUM 40 MG TABLET.DR PO SCH (07:00)
--- NOTE | 2018-05-18 07:15 | NUR ---
PATENT IN BED AOX4. COMPLAINS OF MILD PAIN TO BACK, 03/23, BUT DECLINED PAIN MEDICATION AT THIS TIME. RT. FA IV INTACT AND FLUSHED. DENIES ABDOMINAL PAIN AT THIS TIME, CHEST PAIN OR SOB. MILD SWELLING TO LIPS. ALL NEEDS MET. SAFETY PRECAUTIONS IN PLACE. WILL CONTINUE TO MONITOR.
[2018-05-18] MEDS: SEVELAMER CARBONATE 800 MG TABLET PO SCH ×2 (08:17→12:49)
[2018-05-18] MEDS: hydrALAZINE HCL 25 MG TABLET PO SCH (08:19)
[2018-05-18] MEDS: DOXAZOSIN 1 MG TABLET PO SCH (08:19)
[2018-05-18] MEDS: HYDROXYCHLOROQUINE SULFATE 200 MG TABLET PO SCH (08:21)
[2018-05-18] MEDS: FOLIC ACID/VITAMIN B COMP W-C TABLET PO SCH (08:21)
[2018-05-18] MEDS: predniSONE 2.5 MG TABLET PO SCH (08:21)
[2018-05-18] MEDS: BENAZEPRIL HCL 20 MG TABLET PO SCH (08:28)
[2018-05-18 11:15] VITALS: BP 122/69
--- NOTE | 2018-05-18 14:20 | NUR ---
PATIENT DISCHARGED TO HOME. DISCHARGED INSTRUCTIONS AND MED RECON GIVEN AND WENT OVER WITH PATIENT. BELONGINGS LIST WENT OVER WITH PATIENT. PATIENT IN STABLE CONDITION. VS STABLE THROUGHOUT THE SHIFT. MIDLINE DC AND LENGTH WAS AT 11CM WHEN PULLED OUT. ALL CARE TOLERATED WELL. PATIENT ARRANGED FOR LIFT TO PICK HER UP AND TAKE HER HOME.
--- NOTE | 2018-05-19 05:48 | NUR ---
INFORMATION SENT: FACESHEET,CONSULTATION,DISCHARGE SUMMARY,PROGRESS NOTES 05/18,UR 05/18 INSURANCE NAME: [employer] / [employer] FAX NUMBER: [phone] / [phone] FAX SENT
== END 2018-05-18 14:20 | disposition home or self-care (01) | DRG 562 ==
LOC: ER 05:16 → MEDSURG3 16:51
PROVIDERS: ADMIT Internal Medicine; ATTEND Internal Medicine
PROC: 05HY33Z Insertion of Infusion Device into Upper Vein, Percutaneous Approach (ICD-10-PCS; 2018-05-15)
PROC: 5A1D70Z Performance of Urinary Filtration, Intermittent, Less than 6 Hours Per Day (ICD-10-PCS; principal; 2018-05-16)
DX: S39.011A Strain of muscle, fascia and tendon of abdomen, initial encounter (principal); N18.6 End stage renal disease; I13.11 Hypertensive heart and chronic kidney disease without heart failure, with stage 5 chronic kidney disease, or end stage renal disease; T82.598A Other mechanical complication of other cardiac and vascular devices and implants, initial encounter; F11.20 Opioid dependence, uncomplicated; I31.3 Pericardial effusion (noninflammatory); X58.XXXA Exposure to other specified factors, initial encounter; Y92.89 Other specified places as the place of occurrence of the external cause; N83.12 Corpus luteum cyst of left ovary; R16.2 Hepatomegaly with splenomegaly, not elsewhere classified; M32.14 Glomerular disease in systemic lupus erythematosus; E11.22 Type 2 diabetes mellitus with diabetic chronic kidney disease; Z99.2 Dependence on renal dialysis; K58.1 Irritable bowel syndrome with constipation; G40.909 Epilepsy, unspecified, not intractable, without status epilepticus; Z86.73 Personal history of transient ischemic attack (TIA), and cerebral infarction without residual deficits; Z90.49 Acquired absence of other specified parts of digestive tract; Z86.718 Personal history of other venous thrombosis and embolism; M79.7 Fibromyalgia; K21.9 Gastro-esophageal reflux disease without esophagitis; G89.4 Chronic pain syndrome; D63.8 Anemia in other chronic diseases classified elsewhere; M35.9 Systemic involvement of connective tissue, unspecified; M14.80 Arthropathies in other specified diseases classified elsewhere, unspecified site; M32.19 Other organ or system involvement in systemic lupus erythematosus; N25.0 Renal osteodystrophy
CPT/HCPCS: 36415; 36569; 71045; 71275; 83690; 83735; 84100; 85025; 90937; 93005; A4663; G0378; J1170; J1200; J7050; J7512; Q9967

== ENCOUNTER 2018-08-25 05:20 | Inpatient (IN) | payer OTHER, MEDICAID ==
[2018-08-25] VITALS (7 sets, daily range): BP systolic 115–154; BP diastolic 71–100
[~2018-08-25] VITALS: Ht 157.5 cm; Wt 55.0 kg
[~2018-08-25 05:20] MED LIST changes: +FOLI0.8T2 PO
[2018-08-25] MEDS ORDERED: SEVE800T8 PO (05:38)
[2018-08-25] MEDS ORDERED: AMLO10TA7 PO (05:38)
--- NOTE | 2018-08-25 05:44 | NUR ---
Patient came in to the ER with chief complaint of pain all over her body, chest and left arm area. Patient is a dialysis patient. Last dialysis was Tuesday08/23/18. Patient reported Hx of 4 surgery. New catheter for dialysis on right leg was placed on 08/17/18. Patient also reported n/vx2 days. Also reported pain from the left side of her abdomen that radiates on her chest and left arm. Reported taking [place] 10/325mg for pain on Tuesday08/23/18 but with no relief. Came in here today for further evaluation. Patient AAOx4. In no acute distress. Denies any SOB.
--- NOTE | 2018-08-25 05:48 | NUR ---
KELI CHEN AT BEDSIDE FOR MSE.
[2018-08-25] MEDS ORDERED: IV NORMAL SALINE 500 ML BAG IV ONE (06:00)
[2018-08-25] MEDS ORDERED: ONDANSETRON IV *ER 4 MG/2 ML VIAL IV ONE (06:15)
[2018-08-25] MEDS ORDERED: ONDANSETRON 4 MG/2 ML VIAL ONE (06:29)
--- NOTE | 2018-08-25 06:50 | NUR ---
KELI CHEN at bedside.
[2018-08-25 06:59] LABS: EOSINOPHILS # (AUTO) 0.1 K/uL (0.0-0.7); EOSINOPHILS % (AUTO) 1.5 % (0.0-7.0); MONOCYTES # (AUTO) 0.3 K/uL (2.0-10.0); WHITE BLOOD COUNT (AUTO) 4.6 K/uL (3.8-11.8)
[2018-08-25 07:05] LABS: BASOPHILS % (AUTO) 0.7 % (0.0-2.0); LYMPHOCYTES # (AUTO) 0.5 K/uL (20.0-40.0); LYMPHOCYTES % (AUTO) 10.1 % (20.5-51.5); MEAN CORPUSCULAR HEMOGLOBIN 29.9 uug (24.7-32.8); MEAN CORPUSCULAR HGB CONC 32 g/dL (32.3-35.6); MEAN CORPUSCULAR VOLUME 92.8 fL (75.5-95.3); MONOCYTES % (AUTO) 6.6 % (0.0-11.0); NEUTROPHILS # (AUTO) 3.7 K/uL (1.8-8.9); NEUTROPHILS % (AUTO) 81.1 % (38.5-71.5); PLATELET COUNT (AUTO) 103 K/uL (179-408)
[2018-08-25 07:06] LABS: CARBON DIOXIDE 26 mmol/L (21-32); CHLORIDE 96 mmol/L (98-107); GLUCOSE 96 mg/dL (74-106); POTASSIUM 4.7 mmol/L (3.5-5.1); UREA NITROGEN, BLOOD 38 mg/dL (7-18)
--- NOTE | 2018-08-25 07:07 | NUR ---
Transport for CT to [facility]- MARIA DE JESUS 90 minutes
[2018-08-25 07:08] LABS: CREATININE 13.9 mg/dL (0.6-1.3)
--- NOTE | 2018-08-25 07:09 | NUR ---
Report given to day shift ALCYIA Schultz
[2018-08-25 07:10] LABS: HEMOGLOBIN 7.2 g/dL (10.9-14.3)
[2018-08-25 07:11] LABS: ALKALINE PHOSPHATASE 54 U/L (50-136); ASPARTATE AMINOTRANSFERASE 12 U/L (15-37); BILIRUBIN,DIRECT 0.1 mg/dL (0.0-0.2); BILIRUBIN,TOTAL 0.3 mg/dL (0.2-1.0); HEMATOCRIT 22.3 % (31.2-41.9); LIPASE 62 U/L (73-393); TOTAL PROTEIN, SERUM 7.6 g/dL (6.4-8.2)
[2018-08-25 07:23] LABS: ALANINE AMINOTRANSFERASE < 6 U/L (14-59)
--- NOTE | 2018-08-25 07:50 | NUR ---
luciano Silverio AT BEDSIDE FOR PATIENTE EVALUATION. PATIENT TO BE ADMITTED TO TELEMETRY, SHE IS CLEARED TO BE PICKED UP FOR CT AFTER HER ADMISSION PER ER MD.
--- NOTE | 2018-08-25 08:02 | NUR ---
Pt. admitted to telemetry , under care of Álvaro Morris NP. Dx; Severe Anemia. Report given to Ninfa TONG on Telemetry Belongs List completed
[2018-08-25] MEDS ORDERED: HYDROMORPHONE 1 MG/1 ML DISP.SYRIN IV PRN (08:45)
[2018-08-25] MEDS ORDERED: HYDROMORPHONE 1 MG/1 ML DISP.SYRIN IV ONE (08:45)
--- NOTE | 2018-08-25 08:59 | NUR ---
BLS transport for CT scan of abdomen in [facility]. BLS transport ok by Arturo PA. Unit #[id number] Ana Cantu A.
[2018-08-25] MEDS ORDERED: Medication Not On Formulary EA (Benazepril Hcl 40 MG) PO SCH (09:15)
[2018-08-25] MEDS ORDERED: SEVELAMER CARBONATE 3200 MG PO SCH ×2 (09:15)
[2018-08-25] MEDS ORDERED: Medication Not On Formulary EA (Esomeprazole Mag Trihydrate (Nexium) 40 MG) PO SCH (09:15)
[2018-08-25] MEDS ORDERED: DOXAZOSIN 1 MG TABLET PO SCH (09:15)
[2018-08-25] MEDS ORDERED: AMLODIPINE 10 MG TABLET PO SCH (09:15)
[2018-08-25] MEDS ORDERED: ONDANSETRON 4 MG/2 ML VIAL IV PRN (10:00)
[2018-08-25] MEDS ORDERED: ZOLPIDEM 5 MG TABLET PO PRN (10:00)
[2018-08-25] MEDS ORDERED: ACETAMINOPHEN 325 MG TABLET PO PRN (10:00)
--- NOTE | 2018-08-25 10:15 | NUR ---
Patient back from [place], patient reports pain at a tolerable level.
[2018-08-25 10:17] LABS: PHOSPHOROUS 5.9 mg/dL (2.5-4.9)
--- NOTE | 2018-08-25 10:24 | NUR ---
Spoke to Dari, pharmacist in regards to medication orders and reconciliation. States she will review medications also.
[2018-08-25] MEDS: AMLODIPINE 10 MG TABLET PO SCH ×2 (10:30→20:52)
[2018-08-25] MEDS: CARVEDILOL 25 MG TABLET PO SCH ×2 (10:33→18:12)
[2018-08-25] MEDS: CLONIDINE HCL 0.1 MG TABLET PO SCH ×3 (10:34→21:05)
[2018-08-25] MEDS: hydrALAZINE HCL 25 MG TABLET PO SCH ×2 (10:37→20:51)
[2018-08-25] MEDS: DOXAZOSIN 2 MG TABLET PO SCH ×2 (10:55→20:50)
[2018-08-25] MEDS: predniSONE 2.5 MG TABLET PO SCH (11:11)
[2018-08-25] MEDS: HYDROXYCHLOROQUINE SULFATE 200 MG TABLET PO SCH (11:11)
--- NOTE | 2018-08-25 11:31 | NUR ---
Received patient report from Xu TONG prior to patient admission. Patient on electronic device monitor. Will continue to carry out plan of care.
[2018-08-25] MEDS: BENAZEPRIL HCL 20 MG TABLET PO SCH ×2 (12:30→20:51)
[2018-08-25] MEDS: SEVELAMER CARBONATE 800 MG TABLET PO SCH ×2 (12:37→18:11)
[2018-08-25] MEDS: PANTOPRAZOLE SODIUM 40 MG TABLET.DR PO SCH (12:37)
[2018-08-25] MEDS: HYDROMORPHONE 1 MG/1 ML DISP.SYRIN IV PRN ×2 (13:45→18:11)
--- NOTE | 2018-08-25 18:21 | NUR ---
Patient resting in bed, no distress noted. Pain controlled with Dilaudid 1mg Q 4 hours PRN. Refusing stool sample. CT of abdomen done today in [facility]. On panel monitor, Sinus Rhythm. MRSA obtained in ER today, pending. Transfused one unit today during dialysis, 1800ml out. Will endorse care to oncoming shift.
--- NOTE | 2018-08-25 19:20 | NUR ---
Received pt lying on bed asleep. No s/sx of distress. Repositioned for comfort, will continue to monitor Addendum: 08/26/18 at 0349 by GRZEGORZ DEAN RN wrong patient
--- NOTE | 2018-08-25 19:30 | NUR ---
Received pt lying on bed awake watching TV. C/o of itchiness, will notify MD. Able to turn self, pt denies pain at this time. Will continue to monitor
--- NOTE | 2018-08-25 20:07 | NUR ---
Received new order for Benadryl 50 MG IV per Ivan Morris NP. Order carried out. Pt is stable, will continue to monitor.
[2018-08-25] MEDS ORDERED: diphenhydrAMINE 50 MG/1 ML VIAL IV PRN (20:15)
--- NOTE | 2018-08-25 23:48 | NUR ---
Pt c/o pain, PRN dilaudid prepared but IV site infiltrated. Several attempts of IV insertion unsuccessful. Notified MD and received orders to have PO medication for Zofran 4 mg Q6H PRN, PO Dilaudid 1mg Q4H PRN and PO Benadryl 50 mg Q6H PRN. ALso ordered for midline insertion tomorrow. Pt made aware, pt stable at this time. Will continue to monitor.
[2018-08-26] MEDS ORDERED: diphenhydrAMINE 50 MG CAPSULE PO PRN
[2018-08-26] MEDS ORDERED: ONDANSETRON HCL 4 MG TABLET PO PRN
[2018-08-26] MEDS ORDERED: HYDROMORPHONE HCL 2 MG TABLET PO PRN
[2018-08-26 00:28] VITALS: BP 128/76
[2018-08-26] MEDS: CLONIDINE HCL 0.1 MG TABLET PO SCH ×3 (05:09→21:07)
[2018-08-26 05:32] VITALS: BP 144/96
[2018-08-26] MEDS: PANTOPRAZOLE SODIUM 40 MG TABLET.DR PO SCH (06:00)
[2018-08-26 06:04] LABS: BASOPHILS % (AUTO) 0.9 % (0.0-2.0); EOSINOPHILS # (AUTO) 0.1 K/uL (0.0-0.7); HEMATOCRIT 26.6 % (31.2-41.9); HEMOGLOBIN 8.5 g/dL (10.9-14.3); LYMPHOCYTES # (AUTO) 0.6 K/uL (20.0-40.0); LYMPHOCYTES % (AUTO) 19.5 % (20.5-51.5); MEAN CORPUSCULAR HEMOGLOBIN 29.4 uug (24.7-32.8); MEAN CORPUSCULAR HGB CONC 32 g/dL (32.3-35.6); MEAN CORPUSCULAR VOLUME 92.2 fL (75.5-95.3); MONOCYTES # (AUTO) 0.4 K/uL (2.0-10.0); MONOCYTES % (AUTO) 11.9 % (0.0-11.0); NEUTROPHILS # (AUTO) 2.1 K/uL (1.8-8.9); NEUTROPHILS % (AUTO) 64.7 % (38.5-71.5); PLATELET COUNT (AUTO) 116 K/uL (179-408); RED BLOOD CELL COUNT(AUTO) 2.88 MIL/uL (3.63-4.92); WHITE BLOOD COUNT (AUTO) 3.2 K/uL (3.8-11.8)
[2018-08-26 06:21] LABS: ALANINE AMINOTRANSFERASE < 6 U/L (14-59); ALKALINE PHOSPHATASE 52 U/L (50-136); ASPARTATE AMINOTRANSFERASE 12 U/L (15-37); BILIRUBIN,TOTAL 0.4 mg/dL (0.2-1.0); CARBON DIOXIDE 28 mmol/L (21-32); CHLORIDE 101 mmol/L (98-107); GLUCOSE 91 mg/dL (74-106); MAGNESIUM 2.1 mg/dL (1.8-2.4); PHOSPHOROUS 4.1 mg/dL (2.5-4.9); POTASSIUM 4.8 mmol/L (3.5-5.1); TOTAL PROTEIN, SERUM 7.3 g/dL (6.4-8.2); UREA NITROGEN, BLOOD 19 mg/dL (7-18)
[2018-08-26 06:26] LABS: CREATININE 9.5 mg/dL (0.6-1.3)
--- NOTE | 2018-08-26 07:30 | NUR ---
RECIEVED PT LYING IN BED VERY SOUND ASLEEP. NO APPARENT RESPIRATORY DISTRESS NOTED. TELE-IS SR NO ECTOPY.
--- NOTE | 2018-08-26 07:32 | NUR ---
Pt now sleeping in bed, easily arousable. Not in apparent distress, pt tolerated PRN PO dilaudid 1 mg for pain as ordered. No c/o nausea or vomiting noted. Needs attended to, will endorse to incoming nurse for continuity of care.
--- NOTE | 2018-08-26 08:30 | NUR ---
PT APPEARS A BIT ANXIOUS BUT PLEASANT. AMBULATORY WITHOUT ANY PROBLEM.
[2018-08-26] MEDS: hydrALAZINE HCL 25 MG TABLET PO SCH ×2 (09:00→20:42)
[2018-08-26] MEDS ORDERED: CINACALCET HCL 30 MG TABLET PO SCH (09:00)
[2018-08-26] MEDS: SEVELAMER CARBONATE 800 MG TABLET PO SCH ×3 (10:03→17:49)
[2018-08-26] MEDS: CARVEDILOL 25 MG TABLET PO SCH ×2 (10:04→17:52)
[2018-08-26] MEDS: AMLODIPINE 10 MG TABLET PO SCH ×2 (10:04→20:40)
[2018-08-26] MEDS: BENAZEPRIL HCL 20 MG TABLET PO SCH ×2 (10:05→20:39)
[2018-08-26] MEDS: DOXAZOSIN 2 MG TABLET PO SCH ×2 (10:05→20:39)
[2018-08-26] MEDS: predniSONE 2.5 MG TABLET PO SCH (10:06)
[2018-08-26] MEDS: HYDROXYCHLOROQUINE SULFATE 200 MG TABLET PO SCH (10:06)
[2018-08-26 10:30] VITALS: BP 123/72
--- NOTE | 2018-08-26 11:30 | NUR ---
MIDLINE IV ACCESS INSERTED ON RIGHT UPPER ARM AT BEDSIDE BY PICC LINE RN. PT IS A VERY HARD STICK.
[2018-08-26] MEDS: diphenhydrAMINE 50 MG/1 ML VIAL IV PRN ×2 (13:20→22:05)
[2018-08-26] MEDS: HYDROMORPHONE 1 MG/1 ML DISP.SYRIN IV PRN ×3 (13:21→22:06)
--- NOTE | 2018-08-26 13:30 | NUR ---
PT C/O OF ABDOMENAL AND GENERALIZED PAIN AND NAUSEA LEVEL 8 AND REQUESTED FOR HER PAIN MEDICATION WITH BENADRYL AND ZOFRAN. MEDICATED VIA THE MIDLINE.
[2018-08-26 14:06] LABS: HEPATITIS B SURFACE AB Reactive (.); HEPATITIS B SURFACE AG Negative (Negative)
[2018-08-26] MEDS: ONDANSETRON 4 MG/2 ML VIAL IV PRN ×2 (14:11→20:55)
[2018-08-26 16:01] VITALS: BP 118/77
--- NOTE | 2018-08-26 18:00 | NUR ---
NO HD TODAY. CONDITION IS UNCHANGED.
--- NOTE | 2018-08-26 19:20 | NUR ---
RECEIVED PT AWAKE, ALERT AND ORIENTEDX4. PT SHOWS NO SIGNS OF ACUTE DISTRESS. PT IV INTACT. SAFETY AND COMFORT PROVIDED. WILL CONTINUE TO MONITOR.
[2018-08-26 20:26] VITALS: BP 140/89
[2018-08-27] MEDS: HYDROMORPHONE 1 MG/1 ML DISP.SYRIN IV PRN ×6 (02:21→23:26)
[2018-08-27 05:26] VITALS: BP 103/57
[2018-08-27] MEDS: CLONIDINE HCL 0.1 MG TABLET PO SCH ×3 (06:00→21:56)
[2018-08-27] MEDS: PANTOPRAZOLE SODIUM 40 MG TABLET.DR PO SCH (06:03)
[2018-08-27] MEDS: diphenhydrAMINE 50 MG/1 ML VIAL IV PRN ×3 (06:25→23:30)
--- NOTE | 2018-08-27 06:53 | NUR ---
PT SLEPT THROUGHOUT THE SHIFT.PT SHOWS NO SIGNS OF ACUTE DISTRESS. PRESCRIBED MEDICATION GIVEN AND PT TOLERATED IT WELL.PT GIVEN DILAUDID Q4H FOR 8/10 PAIN SCALE ON HER ABDOMEN. PT TOLERATED IT WELL. PT GIVEN BENADRYL TWICE ON MY SHIFT FOR ITCHINESS. PT COMPLAINING OF PAIN ON HER RIGHT INNER THIGH BECAUSE OF THE DEANNA. SAFETY AND COMFORT. PROVIDED. ALL NEEDS ARE MET. WILL ENDORSE ACCORDINGLY TO INCOMING NURSE FOR CONTINUITY OF CARE.
--- NOTE | 2018-08-27 07:20 | NUR ---
received patient with dialysis at bedside, alert and oriented x4 with no SOB and no c/o pain at this time. bed in low position and 2 siderails up , safety and comfort provided at all times, will continue to monitor.
[2018-08-27] MEDS: CARVEDILOL 25 MG TABLET PO SCH ×2 (08:00→17:34)
[2018-08-27 08:24] LABS: BASOPHILS % (AUTO) 0.9 % (0.0-2.0); EOSINOPHILS # (AUTO) 0.1 K/uL (0.0-0.7); EOSINOPHILS % (AUTO) 4.1 % (0.0-7.0); HEMATOCRIT 24.9 % (31.2-41.9); HEMOGLOBIN 7.9 g/dL (10.9-14.3); LYMPHOCYTES # (AUTO) 0.6 K/uL (20.0-40.0); LYMPHOCYTES % (AUTO) 20.4 % (20.5-51.5); MEAN CORPUSCULAR HEMOGLOBIN 29.7 uug (24.7-32.8); MEAN CORPUSCULAR HGB CONC 32 g/dL (32.3-35.6); MONOCYTES # (AUTO) 0.2 K/uL (2.0-10.0); MONOCYTES % (AUTO) 5.8 % (0.0-11.0); NEUTROPHILS # (AUTO) 2.1 K/uL (1.8-8.9); NEUTROPHILS % (AUTO) 68.8 % (38.5-71.5); PLATELET COUNT (AUTO) 131 K/uL (179-408); RED BLOOD CELL COUNT(AUTO) 2.68 MIL/uL (3.63-4.92)
[2018-08-27 08:40] LABS: POTASSIUM 4.6 mmol/L (3.5-5.1)
[2018-08-27 08:47] LABS: CREATININE 10.3 mg/dL (0.6-1.3)
[2018-08-27] MEDS: DOXAZOSIN 2 MG TABLET PO SCH ×2 (08:51→20:25)
[2018-08-27] MEDS: hydrALAZINE HCL 25 MG TABLET PO SCH ×2 (08:51→20:25)
[2018-08-27] MEDS: AMLODIPINE 10 MG TABLET PO SCH ×2 (08:52→20:24)
[2018-08-27] MEDS: BENAZEPRIL HCL 20 MG TABLET PO SCH ×2 (08:52→20:24)
--- NOTE | 2018-08-27 10:15 | NUR ---
JUST FINISHED HER DIALYSIS AND NOW SHE IS EATING HER BREAKFAST AND TAKING HER MEDICATIONS.
[2018-08-27] MEDS: predniSONE 2.5 MG TABLET PO SCH (10:22)
[2018-08-27] MEDS: SEVELAMER CARBONATE 800 MG TABLET PO SCH ×3 (10:22→17:28)
[2018-08-27] MEDS: HYDROXYCHLOROQUINE SULFATE 200 MG TABLET PO SCH (10:22)
[2018-08-27 11:02] VITALS: BP 137/82
[2018-08-27 15:12] VITALS: BP 148/91
--- NOTE | 2018-08-27 18:42 | NUR ---
patient in bed, alert and oriented x4 with no SOB and c/o pain and prn pain medications given as ordered. bed in low position and 2 siderails up , safety and comfort provided at all times, will continue to monitor.
--- NOTE | 2018-08-27 19:30 | NUR ---
Report received. Patient AAO. NAD noted. Plan of care discussed with patient; verbalized understanding.
[2018-08-27 20:02] VITALS: BP 140/90
--- NOTE | 2018-08-27 23:26 | NUR ---
Medicated with Dilaudid and Benadryl IV per patient's request.
[2018-08-28 04:52] VITALS: BP 128/83
[2018-08-28] MEDS: CLONIDINE HCL 0.1 MG TABLET PO SCH ×2 (06:03→13:15)
[2018-08-28] MEDS: HYDROMORPHONE 1 MG/1 ML DISP.SYRIN IV PRN ×2 (06:03→10:07)
[2018-08-28] MEDS: PANTOPRAZOLE SODIUM 40 MG TABLET.DR PO SCH (06:03)
--- NOTE | 2018-08-28 06:22 | NUR ---
Medicated twice with Dilaudid IV for back pains during the shift. VS stable.
[2018-08-28 06:38] LABS: EOSINOPHILS # (AUTO) 0.1 K/uL (0.0-0.7); HEMATOCRIT 23.4 % (31.2-41.9); LYMPHOCYTES # (AUTO) 0.6 K/uL (20.0-40.0); LYMPHOCYTES % (AUTO) 22.4 % (20.5-51.5); MONOCYTES # (AUTO) 0.2 K/uL (2.0-10.0); NEUTROPHILS # (AUTO) 1.8 K/uL (1.8-8.9); RED BLOOD CELL COUNT(AUTO) 2.51 MIL/uL (3.63-4.92); WHITE BLOOD COUNT (AUTO) 2.8 K/uL (3.8-11.8)
[2018-08-28 06:47] LABS: BASOPHILS % (AUTO) 1.1 % (0.0-2.0); EOSINOPHILS % (AUTO) 4.1 % (0.0-7.0); HEMOGLOBIN 7.5 g/dL (10.9-14.3); MEAN CORPUSCULAR HEMOGLOBIN 29.6 uug (24.7-32.8); MEAN CORPUSCULAR HGB CONC 32 g/dL (32.3-35.6); MONOCYTES % (AUTO) 8.6 % (0.0-11.0); NEUTROPHILS % (AUTO) 63.8 % (38.5-71.5); PLATELET COUNT (AUTO) 136 K/uL (179-408)
[2018-08-28 06:52] LABS: POTASSIUM 5.1 mmol/L (3.5-5.1)
[2018-08-28 07:05] LABS: CREATININE 10.4 mg/dL (0.6-1.3)
[2018-08-28] MEDS: diphenhydrAMINE 50 MG/1 ML VIAL IV PRN (08:54)
[2018-08-28] MEDS: HYDROXYCHLOROQUINE SULFATE 200 MG TABLET PO SCH (09:00)
[2018-08-28] MEDS: BENAZEPRIL HCL 20 MG TABLET PO SCH (09:00)
[2018-08-28] MEDS: CARVEDILOL 25 MG TABLET PO SCH (09:00)
[2018-08-28] MEDS: AMLODIPINE 10 MG TABLET PO SCH (09:00)
[2018-08-28] MEDS: SEVELAMER CARBONATE 800 MG TABLET PO SCH ×2 (09:00→12:07)
[2018-08-28] MEDS: predniSONE 2.5 MG TABLET PO SCH (09:01)
[2018-08-28] MEDS: DOXAZOSIN 2 MG TABLET PO SCH (09:01)
[2018-08-28] MEDS: hydrALAZINE HCL 25 MG TABLET PO SCH (09:01)
[2018-08-28 11:16] VITALS: BP 107/60
[2018-08-28] MEDS ORDERED: DOCUSATE SODIUM 100 MG CAPSULE PO ONE (12:15)
[2018-08-28 13:15] VITALS: BP 118/82
--- NOTE | 2018-08-28 13:30 | NUR ---
Discharge instructions given regarding medications, activities, diet and follow up appointments. SWAPNIL midline removed. Encouraged for questions, none raised.
== END 2018-08-28 14:23 | disposition home or self-care (01) | DRG 682 ==
LOC: ER 05:20 → TELE3 08:15 → MEDSURG3 08-26 11:27
PROVIDERS: ADMIT Nurse Practitioner Acute Care; ATTEND Nurse Practitioner Acute Care
PROC: 30233N1 Transfusion of Nonautologous Red Blood Cells into Peripheral Vein, Percutaneous Approach (ICD-10-PCS; principal; 2018-08-25)
PROC: 5A1D70Z Performance of Urinary Filtration, Intermittent, Less than 6 Hours Per Day (ICD-10-PCS; 2018-08-25)
PROC: 05HY33Z Insertion of Infusion Device into Upper Vein, Percutaneous Approach (ICD-10-PCS; 2018-08-26)
DX: I13.11 Hypertensive heart and chronic kidney disease without heart failure, with stage 5 chronic kidney disease, or end stage renal disease (principal); D63.1 Anemia in chronic kidney disease; N18.6 End stage renal disease; F11.20 Opioid dependence, uncomplicated; J90 Pleural effusion, not elsewhere classified; M32.14 Glomerular disease in systemic lupus erythematosus; G40.909 Epilepsy, unspecified, not intractable, without status epilepticus; Z99.2 Dependence on renal dialysis; E28.2 Polycystic ovarian syndrome; K58.1 Irritable bowel syndrome with constipation; M14.80 Arthropathies in other specified diseases classified elsewhere, unspecified site; N80.9 Endometriosis, unspecified; Z79.899 Other long term (current) drug therapy; Z82.49 Family history of ischemic heart disease and other diseases of the circulatory system; Z90.49 Acquired absence of other specified parts of digestive tract; G89.4 Chronic pain syndrome; K21.9 Gastro-esophageal reflux disease without esophagitis; F32.9 Major depressive disorder, single episode, unspecified; F41.9 Anxiety disorder, unspecified; F12.90 Cannabis use, unspecified, uncomplicated; Z86.73 Personal history of transient ischemic attack (TIA), and cerebral infarction without residual deficits; K76.0 Fatty (change of) liver, not elsewhere classified; M79.7 Fibromyalgia; Z88.6 Allergy status to analgesic agent; Z91.040 Latex allergy status; Z91.013 Allergy to seafood; Z91.018 Allergy to other foods
CPT/HCPCS: 36415; 71045; 74150; 83690; 83735; 84100; 85025; 86706; 86850; 86900; 86901; 86920; 87340; 90937; 93005; A4663; G0378; J1170; J1200; J2405; J7030; J7040; J7050; J7512; P9016-BL; P9021

== ENCOUNTER 2018-09-11 09:16 | Emergency (ER) | payer OTHER, MEDICAID ==
[~2018-09-11] VITALS: Ht 157.5 cm; Wt 56.7 kg
[~2018-09-11 09:16] MED LIST changes: -DIPH50CA37 PO; -FOLI0.8T2 PO; -Ondansetron Hcl/Pf PO
[2018-09-11] MEDS ORDERED: predniSONE 20 MG TABLET PO ONE (10:00)
[2018-09-11] MEDS ORDERED: predniSONE 2.5 MG TABLET ONE (10:07)
--- NOTE | 2018-09-11 10:46 | NUR ---
LAB TECHS ATTEMPTED TO DRAW BLOOD W/O SUCCESS. DR RILEY AWARE.
--- NOTE | 2018-09-11 10:50 | NUR ---
MEDICAL ACCOUNTS RECEIVABLE SPECIALIST ATTEMPTED TO DRAW BLOOD BUT, PT UNCOOPERATIVE.
--- NOTE | 2018-09-11 10:53 | NUR ---
ER GLASS TOUGHENING OPERATOR CALLED PER MD REQUEST.
[2018-09-11 10:58] LABS: *URINE HCG, QUAL NEGATIVE (NEGATIVE)
--- NOTE | 2018-09-11 11:00 | NUR ---
INNA, TELEPHONE TRIAGE NURSE AT THE BEDSIDE.
--- NOTE | 2018-09-11 11:10 | NUR ---
PLACED A CALL TO PT'S HD CENTER([facility] @ [phone]). MADE AN APPOINTMENT FOR PT FOR 1245, PER MD REQUEST.
--- NOTE | 2018-09-11 11:12 | NUR ---
11:00am: SW arrived to the ED, met with Dr. Hauser to discuss patient's case and psychosocial needs. SW then met with patient, who was in her assigned ED bed. Patient is a 32 year old -Cuban female, who came to the ED today for abdominal pain. Patient was receptive to meeting with this SW, however was in a position in the bed, eyes closed. Patient is oriented x 4. Patient stated that she usually uses [employer] for transportation, which is paid by her insurance. Patient stated that her insurance authorizes a set number of rides per year, and that she has already used all authorized rides for the year. Patient stated that she is scheduled to go to dialysis Mondays, Wednesdays, and Fridays at 5am, however missed her dialysis today because she only had one ride left and chose to come to the ED because she was having abdominal pain. SW asked patient if she wanted information on other transportation services, and patient declined. Patient stated that she will only use [employer] and that she will be calling her insurance later on today to discuss her transportation benefits, and is hoping to get more insurance authorized Ly[employer] rides. SW asked patient if she had any other questions or concerns, and patient stated "no". No further SS interventions needed at this time. SW informed Dr. Hauser and ALYCIA Tran about above.
--- NOTE | 2018-09-11 11:12 | NUR ---
10:55am: SW consultation requested to assess patient's transportation needs.
--- NOTE | 2018-09-11 11:31 | NUR ---
DR RILEY REQUESTED FOR PT TO HAVE ARTERIAL LAB DRAW, PT REFUSED. PT ALSO WAS NOTIFY OF HER APPOINTMENT TO HD CENTER.
[2018-09-11 11:35] VITALS: BP 160/77
--- NOTE | 2018-09-11 11:39 | NUR ---
Patient discharged to home in stable conditon. Written and verbal after care instructions given. Patient verbalizes understanding of instructions. Pt left Er w/ steady gait.
== END 2018-09-11 11:40 | disposition home or self-care (01) ==
LOC: ER 09:16
DX: M32.9 Systemic lupus erythematosus, unspecified (principal); I12.0 Hypertensive chronic kidney disease with stage 5 chronic kidney disease or end stage renal disease; E11.22 Type 2 diabetes mellitus with diabetic chronic kidney disease; N18.6 End stage renal disease; Z99.2 Dependence on renal dialysis; K21.9 Gastro-esophageal reflux disease without esophagitis; F12.10 Cannabis abuse, uncomplicated; Z90.49 Acquired absence of other specified parts of digestive tract; Z88.5 Allergy status to narcotic agent; Z91.040 Latex allergy status; Z88.8 Allergy status to other drugs, medicaments and biological substances; Z79.899 Other long term (current) drug therapy
CPT/HCPCS: 74021; 84703; 99284; J7512; A4663

== ENCOUNTER 2018-10-13 08:27 | Inpatient (IN) | payer OTHER, MEDICAID ==
[~2018-10-13] VITALS: Ht 157.5 cm; Wt 51.7 kg
[2018-10-13 11:19] LABS: LYMPHOCYTES # (AUTO) 0.5 K/uL (20.0-40.0); MONOCYTES # (AUTO) 0.4 K/uL (2.0-10.0); NEUTROPHILS # (AUTO) 3.7 K/uL (1.8-8.9)
[2018-10-13 11:23] LABS: CREATININE 6.2 mg/dL (0.6-1.3); POTASSIUM 3.8 mmol/L (3.5-5.1)
[2018-10-13 11:29] LABS: BASOPHILS % (AUTO) 0.7 % (0.0-2.0); BILIRUBIN,DIRECT 0.1 mg/dL (0.0-0.2); BILIRUBIN,TOTAL 0.5 mg/dL (0.2-1.0); EOSINOPHILS # (AUTO) 0.1 K/uL (0.0-0.7); EOSINOPHILS % (AUTO) 1.5 % (0.0-7.0); LYMPHOCYTES % (AUTO) 9.8 % (20.5-51.5); MEAN CORPUSCULAR HGB CONC 33 g/dL (32.3-35.6); MONOCYTES % (AUTO) 7.9 % (0.0-11.0); NEUTROPHILS % (AUTO) 80.1 % (38.5-71.5); PLATELET COUNT (AUTO) 128 K/uL (179-408); TOTAL PROTEIN, SERUM 7.5 g/dL (6.4-8.2); WHITE BLOOD COUNT (AUTO) 4.6 K/uL (3.8-11.8)
[2018-10-13 11:32] LABS: HEMOGLOBIN 7.2 g/dL (10.9-14.3)
[2018-10-13 11:34] LABS: HEMATOCRIT 22.1 % (31.2-41.9)
[2018-10-13] MEDS ORDERED: ONDANSETRON 4 MG/2 ML VIAL IV PRN (13:15)
[2018-10-13] MEDS ORDERED: DOCUSATE SODIUM 100 MG CAPSULE PO PRN (13:15)
[2018-10-13] MEDS ORDERED: MAG HYDROX/AL HYDROX/SIMETH 30 ML LIQUID UDC PO PRN (13:15)
[2018-10-13 16:43] VITALS: BP 157/105
[2018-10-13] MEDS ORDERED: DOXAZOSIN 1 MG TABLET PO SCH (17:00)
[2018-10-13] MEDS ORDERED: ACETAMINOPHEN 325 MG TABLET PO PRN (17:00)
[2018-10-13] MEDS ORDERED: SEVELAMER CARBONATE 3200 MG PO SCH (17:00)
[2018-10-13] MEDS ORDERED: Medication Not On Formulary EA (Benazepril Hcl 40 MG) PO SCH (17:00)
[2018-10-13] MEDS: CARVEDILOL 25 MG TABLET PO SCH (17:06)
[2018-10-13] MEDS: DOXAZOSIN 2 MG TABLET PO SCH (17:07)
[2018-10-13] MEDS: SEVELAMER CARBONATE 800 MG TABLET PO SCH (18:00)
[2018-10-13 21:00] VITALS: BP 168/115
[2018-10-13] MEDS: BENAZEPRIL HCL 20 MG TABLET PO SCH (21:49)
[2018-10-13] MEDS: hydrALAZINE HCL 25 MG TABLET PO SCH (21:49)
[2018-10-13] MEDS: AMLODIPINE 10 MG TABLET PO SCH (21:50)
[2018-10-13] MEDS ORDERED: diphenhydrAMINE 25 MG CAP PO PRN (22:30)
[2018-10-13] MEDS: CLONIDINE HCL 0.1 MG TABLET PO SCH (22:34)
[2018-10-14 00:38] VITALS: BP 167/108
[2018-10-14 04:57] VITALS: BP 145/95
[2018-10-14] MEDS: PANTOPRAZOLE SODIUM 40 MG TABLET.DR PO SCH (06:32)
[2018-10-14] MEDS: CLONIDINE HCL 0.1 MG TABLET PO SCH ×3 (06:33→22:31)
[2018-10-14] MEDS: CARVEDILOL 25 MG TABLET PO SCH ×2 (08:42→17:33)
[2018-10-14] MEDS: hydrALAZINE HCL 25 MG TABLET PO SCH ×2 (08:43→20:07)
[2018-10-14] MEDS: SEVELAMER CARBONATE 800 MG TABLET PO SCH ×3 (08:43→17:33)
[2018-10-14] MEDS: ASPIRIN 81 MG TAB.CHEW PO SCH (08:43)
[2018-10-14] MEDS: AMLODIPINE 10 MG TABLET PO SCH ×2 (08:44→20:10)
[2018-10-14] MEDS: BENAZEPRIL HCL 20 MG TABLET PO SCH ×2 (08:44→20:06)
[2018-10-14] MEDS: DOXAZOSIN 2 MG TABLET PO SCH ×2 (08:44→17:33)
[2018-10-14] MEDS: HYDROXYCHLOROQUINE SULFATE 200 MG TABLET PO SCH (08:44)
[2018-10-14] MEDS ORDERED: CINACALCET HCL 30 MG TABLET PO SCH (09:00)
[2018-10-14] MEDS ORDERED: Medication Not On Formulary EA (Esomeprazole Mag Trihydrate (Nexium) 40 MG) PO SCH (09:00)
[2018-10-14 11:32] VITALS: BP 142/95
[2018-10-14] MEDS: diphenhydrAMINE 50 MG/1 ML VIAL IV PRN ×2 (11:40→20:18)
[2018-10-14] MEDS: HYDROMORPHONE 1 MG/1 ML DISP.SYRIN IV PRN ×3 (11:40→20:06)
[2018-10-14 15:35] VITALS: BP 136/87
[2018-10-14 20:19] VITALS: BP 141/94
[2018-10-15] VITALS (9 sets, daily range): BP systolic 132–165; BP diastolic 84–107
[2018-10-15] MEDS: HYDROMORPHONE 1 MG/1 ML DISP.SYRIN IV PRN ×4 (00:08→15:07)
[2018-10-15] MEDS: PANTOPRAZOLE SODIUM 40 MG TABLET.DR PO SCH (06:02)
[2018-10-15] MEDS: CLONIDINE HCL 0.1 MG TABLET PO SCH ×2 (06:02→14:51)
[2018-10-15] MEDS: diphenhydrAMINE 50 MG/1 ML VIAL IV PRN ×2 (06:28→10:24)
[2018-10-15 06:38] LABS: EOSINOPHILS # (AUTO) 0.2 K/uL (0.0-0.7); EOSINOPHILS % (AUTO) 5.9 % (0.0-7.0); LYMPHOCYTES # (AUTO) 0.7 K/uL (20.0-40.0); MEAN CORPUSCULAR HEMOGLOBIN 30.1 uug (24.7-32.8); MEAN CORPUSCULAR HGB CONC 32 g/dL (32.3-35.6); MEAN CORPUSCULAR VOLUME 92.9 fL (75.5-95.3); MONOCYTES # (AUTO) 0.2 K/uL (2.0-10.0); MONOCYTES % (AUTO) 8.2 % (0.0-11.0); NEUTROPHILS # (AUTO) 1.8 K/uL (1.8-8.9); NEUTROPHILS % (AUTO) 61.9 % (38.5-71.5); PLATELET COUNT (AUTO) 110 K/uL (179-408); WHITE BLOOD COUNT (AUTO) 2.9 K/uL (3.8-11.8)
[2018-10-15 06:46] LABS: RED BLOOD CELL COUNT(AUTO) 2.15 MIL/uL (3.63-4.92)
[2018-10-15 06:49] LABS: HEMOGLOBIN 6.5 g/dL (10.9-14.3)
[2018-10-15 06:58] LABS: MAGNESIUM 1.9 mg/dL (1.8-2.4); PHOSPHOROUS 3.7 mg/dL (2.5-4.9); POTASSIUM 4.6 mmol/L (3.5-5.1)
[2018-10-15 07:07] LABS: CREATININE 10.9 mg/dL (0.6-1.3)
[2018-10-15 08:57] LABS: BAND % (MANUAL) 0 % (0-10); BASOPHILS % (MANUAL) 0 % (0-2); EOSINOPHILS % (MANUAL) 8 % (0-8); LYMPHOCYTES % (MANUAL) 26 % (20-40); MONOCYTES % (MANUAL) 5 % (2-10); NEUTROPHILS % (MANUAL) 63 % (42-75)
[2018-10-15] MEDS: hydrALAZINE HCL 25 MG TABLET PO SCH (09:00)
[2018-10-15] MEDS: ASPIRIN 81 MG TAB.CHEW PO SCH (09:00)
[2018-10-15] MEDS: DOXAZOSIN 2 MG TABLET PO SCH (09:00)
[2018-10-15] MEDS: SEVELAMER CARBONATE 800 MG TABLET PO SCH ×2 (10:14→12:51)
[2018-10-15] MEDS: BENAZEPRIL HCL 20 MG TABLET PO SCH (10:15)
[2018-10-15] MEDS: CARVEDILOL 25 MG TABLET PO SCH (10:16)
[2018-10-15] MEDS: AMLODIPINE 10 MG TABLET PO SCH (10:19)
[2018-10-15] MEDS: HYDROXYCHLOROQUINE SULFATE 200 MG TABLET PO SCH (10:24)
== END 2018-10-15 15:39 | disposition home or self-care (01) | DRG 205 ==
LOC: ER 08:29 → TELE3 13:46 → MEDSURG3 10-14 11:12
PROVIDERS: ADMIT Registered Nurse; ATTEND Registered Nurse
PROC: 05H933Z Insertion of Infusion Device into Right Brachial Vein, Percutaneous Approach (ICD-10-PCS; 2018-10-13)
PROC: 5A1D80Z Performance of Urinary Filtration, Prolonged Intermittent, 6-18 hours Per Day (ICD-10-PCS; principal; 2018-10-15)
PROC: 30233N1 Transfusion of Nonautologous Red Blood Cells into Peripheral Vein, Percutaneous Approach (ICD-10-PCS; 2018-10-15)
DX: M94.0 Chondrocostal junction syndrome [Tietze] (principal); N18.6 End stage renal disease; I13.11 Hypertensive heart and chronic kidney disease without heart failure, with stage 5 chronic kidney disease, or end stage renal disease; F11.20 Opioid dependence, uncomplicated; K92.0 Hematemesis; D63.1 Anemia in chronic kidney disease; Z99.2 Dependence on renal dialysis; M32.14 Glomerular disease in systemic lupus erythematosus; G40.909 Epilepsy, unspecified, not intractable, without status epilepticus; Z87.01 Personal history of pneumonia (recurrent); Z86.73 Personal history of transient ischemic attack (TIA), and cerebral infarction without residual deficits; Z82.49 Family history of ischemic heart disease and other diseases of the circulatory system; Z83.3 Family history of diabetes mellitus; I07.1 Rheumatic tricuspid insufficiency; K58.1 Irritable bowel syndrome with constipation; M79.7 Fibromyalgia; G89.4 Chronic pain syndrome; M32.19 Other organ or system involvement in systemic lupus erythematosus; N92.0 Excessive and frequent menstruation with regular cycle; Z79.899 Other long term (current) drug therapy; F41.9 Anxiety disorder, unspecified; F12.90 Cannabis use, unspecified, uncomplicated; N80.9 Endometriosis, unspecified; K21.9 Gastro-esophageal reflux disease without esophagitis; F32.9 Major depressive disorder, single episode, unspecified; M14.80 Arthropathies in other specified diseases classified elsewhere, unspecified site; R16.2 Hepatomegaly with splenomegaly, not elsewhere classified
CPT/HCPCS: 36415; 70030-TC; 71045; 83690; 83735; 84100; 85025; 85730; 86850; 86900; 86901; 86920; 87040; 90937; 93005; 93307; A4663; C1769; G0378; J1170; J1200; J2405; J7040; P9016-BL; P9021; Q0163

== ENCOUNTER 2019-04-01 11:22 | Inpatient (IN) | payer OTHER ==
[~2019-04-01] VITALS: Ht 157.5 cm; Wt 54.9 kg
[~2019-04-01 11:22] MED LIST changes: -HYDR-4076 PO; +HYDR-894 PO
--- NOTE | 2019-04-01 11:42 | NUR ---
Patient is in room #4B. Dr. Kong has evaluated the patient
[2019-04-01] MEDS ORDERED: ONDANSETRON 4 MG/2 ML VIAL IV ONE (12:00)
[2019-04-01] MEDS ORDERED: LABETALOL HCL 100 MG/20 ML VIAL IV ONE (12:00)
[2019-04-01] MEDS ORDERED: PANTOPRAZOLE SODIUM 40 MG VIAL IV ONE (12:00)
[2019-04-01 12:33] LABS: BASOPHILS % (AUTO) 1.2 % (0.0-2.0); EOSINOPHILS # (AUTO) 0.1 K/uL (0.0-0.7); EOSINOPHILS % (AUTO) 3.9 % (0.0-7.0); HEMATOCRIT 31.4 % (31.2-41.9); LYMPHOCYTES # (AUTO) 0.5 K/uL (20.0-40.0); LYMPHOCYTES % (AUTO) 14.3 % (20.5-51.5); MEAN CORPUSCULAR HEMOGLOBIN 30.1 uug (24.7-32.8); MEAN CORPUSCULAR HGB CONC 32 g/dL (32.3-35.6); MEAN CORPUSCULAR VOLUME 94.6 fL (75.5-95.3); MONOCYTES # (AUTO) 0.3 K/uL (2.0-10.0); MONOCYTES % (AUTO) 9.7 % (0.0-11.0); NEUTROPHILS # (AUTO) 2.2 K/uL (1.8-8.9); NEUTROPHILS % (AUTO) 70.9 % (38.5-71.5); PLATELET COUNT (AUTO) 79 K/uL (179-408); RED BLOOD CELL COUNT(AUTO) 3.32 MIL/uL (3.63-4.92); WHITE BLOOD COUNT (AUTO) 3.2 K/uL (3.8-11.8)
[2019-04-01 12:34] LABS: POTASSIUM 5.1 mmol/L (3.5-5.1)
[2019-04-01 12:37] LABS: CREATININE 12.4 mg/dL (0.6-1.3)
[2019-04-01 12:40] LABS: BILIRUBIN,DIRECT 0.2 mg/dL (0.0-0.2); BILIRUBIN,TOTAL 0.6 mg/dL (0.2-1.0); TOTAL PROTEIN, SERUM 7.8 g/dL (6.4-8.2)
[2019-04-01 13:19] LABS: NEUTROPHILS % (MANUAL) 67 % (42-75)
[2019-04-01 13:20] LABS: EOSINOPHILS % (MANUAL) 3 % (0-8); MONOCYTES % (MANUAL) 8 % (2-10)
[2019-04-01 13:25] LABS: BAND % (MANUAL) 0 % (0-10); LYMPHOCYTES % (MANUAL) 22 % (20-40)
--- NOTE | 2019-04-01 14:04 | NUR ---
[facility] contacted for admission.
[2019-04-01] MEDS ORDERED: PANTOPRAZOLE SODIUM 40 MG VIAL ONE (14:12)
[2019-04-01] MEDS ORDERED: ACETAMINOPHEN ES 500 MG TABLET PO ONE (14:15)
[2019-04-01] MEDS ORDERED: ONDANSETRON 4 MG/2 ML VIAL ONE (14:15)
[2019-04-01] MEDS ORDERED: LABETALOL HCL 100 MG/20 ML VIAL ONE (14:15)
[2019-04-01 14:19] LABS: *BILIRUBIN,URIN NEGATIVE (NEGATIVE); *CLARITY,URINE CLEAR (CLEAR); *COLOR,URINE YELLOW (YELLOW); *KETONES,URINE NEGATIVE (NEGATIVE); *UROBILINOGEN,URINE 0.2 E.U./dl (NORMAL); LEUKOCYTE ESTERASE ,URINE NEGATIVE (NEGATIVE); NITRITE, URINE NEGATIVE (NEGATIVE); PH,URINE 8.5 (5.0-8.0); UGLUCOSE NEGATIVE (NEGATIVE)
[2019-04-01 14:28] LABS: *BLOOD, URINE NEGATIVE (NEGATIVE)
[2019-04-01 14:30] LABS: BACTERIA,URINE NONE SEEN /HPF (NONE SEEN); MUCUS,URINE FEW /LPF (0-FEW); RBC,URINE 0-3 /HPF (0-3); SQUAMOUS EPITHELIAL CELL,UR FEW /HPF (NONE SEEN); WBC,URINE 0-3 /HPF (0-3)
[2019-04-01] MEDS ORDERED: ACETAMINOPHEN ES 500 MG TABLET ONE (14:33)
--- NOTE | 2019-04-01 14:50 | NUR ---
Report given to feeder tender for continuity of care
--- NOTE | 2019-04-01 15:09 | NUR ---
Patient transfered to Telemetry floor
--- NOTE | 2019-04-01 15:11 | NUR ---
RECEIVED PATIENT FROM ER AND ADMITTED TO TELE UNIT WITH DIAGNOSIS OF CHRONIC RENAL FAILURE, IV IN THE RIGHT UPPER ARM WITH 20 GUAGE, INTACT AND PATENT. BELONGING ACCOUNTED AND SIGNED. PATIENT ALERT AND ORIENTED X3, AMBULATORY AND ABLE TO MAKE NEEDS KNOWN PATIENT HAS A JOSH CATH OF THE RIGHT GROIN . SAFETY AND COMFORT PROVIDED, CALL LIGHT WITHIN REACHED , WILL CONTINUE TO MONITOR.
[2019-04-01 15:25] VITALS: BP 174/110
[2019-04-01] MEDS ORDERED: ACETAMINOPHEN 325 MG TABLET PO PRN (15:30)
[2019-04-01] MEDS ORDERED: LORAZEPAM 0.5 MG TABLET PO PRN (15:30)
[2019-04-01] MEDS ORDERED: MAGNESIUM HYDROXIDE 30 ML LIQUID UDC PO PRN (15:30)
[2019-04-01] MEDS ORDERED: diphenhydrAMINE 50 MG/1 ML VIAL IV ONE (17:00)
[2019-04-01] MEDS ORDERED: SEVELAMER CARBONATE 3200 MG PO SCH (17:00)
[2019-04-01] MEDS ORDERED: Medication Not On Formulary EA (Benazepril Hcl 40 MG) PO SCH (17:00)
[2019-04-01] MEDS ORDERED: ALPRAZOLAM 0.5 MG TABLET PO PRN (17:00)
[2019-04-01] MEDS ORDERED: DOXAZOSIN 1 MG TABLET PO SCH (17:00)
[2019-04-01] MEDS: SEVELAMER CARBONATE 800 MG TABLET PO SCH (17:39)
[2019-04-01] MEDS: CARVEDILOL 25 MG TABLET PO SCH (17:40)
[2019-04-01] MEDS: CLONIDINE HCL 0.1 MG TABLET PO SCH (17:41)
--- NOTE | 2019-04-01 18:32 | NUR ---
PATIENT IN BED RESTING, NO SOB NOTED AND NO C/O PAIN AT THIS TIME, ALL NEEDS ATTENDED. WILL CONTINUE TO MONITOR AND CALL LIGHT WITHIN REACH.
--- NOTE | 2019-04-01 19:45 | NUR ---
PATIENT ALERT ORIENTED, NO SOB NO CHEST PAIN, PATIENT ON TELE MONITOR SINUS RHYTHM AT THIS TIME. PATIENT HAS EPISODE OF ANXIETY, WILL MEDICATE ORDERED, BP ELEVATED WITH MEDICATE PATIENT ORDERED, CONT TO MONITOR.
[2019-04-01] MEDS: AMLODIPINE 10 MG TABLET PO SCH (20:04)
[2019-04-01] MEDS: hydrALAZINE HCL 25 MG TABLET PO SCH (20:04)
[2019-04-01] MEDS: BENAZEPRIL HCL 20 MG TABLET PO SCH (20:05)
[2019-04-01] MEDS: DOXAZOSIN 2 MG TABLET PO SCH (20:08)
[2019-04-01 20:18] VITALS: BP 168/100
--- NOTE | 2019-04-01 23:00 | NUR ---
PATIENT ALERT ORIENTED, NO SOB NO CHEST PAIN, PATIENT BP STILL ELEVATED, BY ASYMPTOMATIC NO HEADACHES, NO DIZZINESS, NO NAUSEA NO VOMITING, PATIENT IS DIALYSIS PATIENT, JOSH CATH ON R GROIN, DRESSING INTACT NO BLEEDING NOTED, CONT TO MONITOR.
[2019-04-02] VITALS: BP 178/106
[2019-04-02 04:00] VITALS: BP 178/100
[2019-04-02] MEDS: PANTOPRAZOLE SODIUM 40 MG TABLET.DR PO SCH (06:16)
[2019-04-02] MEDS ORDERED: diphenhydrAMINE 50 MG/1 ML VIAL IV ONE (06:30)
--- NOTE | 2019-04-02 06:30 | NUR ---
CALLED UBALDO CALDWELL REGARDING PATIENT REQUESTING BENADRYL FOR ITCHING, WITH ONE TIME ORDER OF BENADRYL 25MG IV, FOR ITCHING. NOTIFY UBALDO CALDWELL ALSO THAT PATIENT BP STILL HIGH 170/100, 178/106, 168/108, ELEVATED DESPITE NUMEROUS BP MEDICATIONS WITH NO NEW ORDER.
--- NOTE | 2019-04-02 06:33 | NUR ---
PATIENT SLEPT MOST OF THE NIGHT, NO SOB NO CHEST PAIN, STILL ELEVATED BP, BUT ASYMPTOMATIC, NO DIZZINESS, NO HEADACHES, NO NAUSE NO VOMITING, UBALDO CALDWELL VP PLATFORMS AWARE. CONT TO MONITOR.
[2019-04-02] MEDS: CARVEDILOL 25 MG TABLET PO SCH ×2 (07:02→18:09)
--- NOTE | 2019-04-02 07:55 | NUR ---
Awake, alert, oriented x 4, complaining of headache not relieved by Tylenol, nausea, and diarrhea. Discussed plan of care
[2019-04-02] MEDS: ONDANSETRON 4 MG/2 ML VIAL IV PRN ×2 (08:35→18:10)
[2019-04-02] MEDS: CLONIDINE HCL 0.1 MG TABLET PO SCH ×3 (08:36→18:09)
[2019-04-02] MEDS: SEVELAMER CARBONATE 800 MG TABLET PO SCH ×3 (08:36→18:09)
[2019-04-02] MEDS: HYDROXYCHLOROQUINE SULFATE 200 MG TABLET PO SCH (08:37)
[2019-04-02] MEDS: predniSONE 2.5 MG TABLET PO SCH (08:37)
[2019-04-02] MEDS: hydrALAZINE HCL 25 MG TABLET PO SCH ×2 (08:45→23:44)
[2019-04-02] MEDS: DOXAZOSIN 2 MG TABLET PO SCH ×2 (08:46→22:27)
[2019-04-02] MEDS: BENAZEPRIL HCL 20 MG TABLET PO SCH ×2 (08:46→22:27)
[2019-04-02] MEDS: AMLODIPINE 10 MG TABLET PO SCH ×2 (08:47→22:28)
[2019-04-02] MEDS ORDERED: Medication Not On Formulary EA (Esomeprazole Mag Trihydrate (Nexium) 40 MG) PO SCH (09:00)
[2019-04-02] MEDS: HYDROMORPHONE 1 MG/1 ML DISP.SYRIN IV PRN ×3 (09:34→18:10)
--- NOTE | 2019-04-02 09:35 | NUR ---
Complaining of headache, Dilaudid IV given as ordered. Instructed to call if with loose BM and not to flush toilet
[2019-04-02 11:32] VITALS: BP 151/96
[2019-04-02 12:30] LABS: BASOPHILS % (AUTO) 1.1 % (0.0-2.0); EOSINOPHILS # (AUTO) 0.2 K/uL (0.0-0.7); HEMATOCRIT 29.4 % (31.2-41.9); HEMOGLOBIN 9.4 g/dL (10.9-14.3); LYMPHOCYTES # (AUTO) 0.6 K/uL (20.0-40.0); LYMPHOCYTES % (AUTO) 21.5 % (20.5-51.5); MEAN CORPUSCULAR HEMOGLOBIN 30.5 uug (24.7-32.8); MEAN CORPUSCULAR HGB CONC 32 g/dL (32.3-35.6); MEAN CORPUSCULAR VOLUME 94.9 fL (75.5-95.3); MONOCYTES # (AUTO) 0.3 K/uL (2.0-10.0); MONOCYTES % (AUTO) 11.7 % (0.0-11.0); NEUTROPHILS # (AUTO) 1.6 K/uL (1.8-8.9); NEUTROPHILS % (AUTO) 59.7 % (38.5-71.5); PLATELET COUNT (AUTO) 69 K/uL (179-408); WHITE BLOOD COUNT (AUTO) 2.6 K/uL (3.8-11.8)
[2019-04-02 12:50] LABS: BILIRUBIN,TOTAL 0.5 mg/dL (0.2-1.0); MAGNESIUM 2.4 mg/dL (1.8-2.4); PHOSPHOROUS 3.8 mg/dL (2.5-4.9); POTASSIUM 5.9 mmol/L (3.5-5.1); TOTAL PROTEIN, SERUM 7.2 g/dL (6.4-8.2)
[2019-04-02 12:52] LABS: CREATININE 13.6 mg/dL (0.6-1.3)
[2019-04-02] MEDS: diphenhydrAMINE 50 MG/1 ML VIAL IV PRN ×2 (13:48→21:26)
[2019-04-02 14:06] LABS: BAND % (MANUAL) 1 % (0-10); EOSINOPHILS % (MANUAL) 9 % (0-8); LYMPHOCYTES % (MANUAL) 23 % (20-40); MONOCYTES % (MANUAL) 7 % (2-10); NEUTROPHILS % (MANUAL) 60 % (42-75)
[2019-04-02 15:50] VITALS: BP 145/99
[2019-04-02] MEDS: LOPERAMIDE HCL 2 MG CAPSULE PO PRN (18:10)
--- NOTE | 2019-04-02 18:43 | NUR ---
Nauseated with headache. Zofran and Dilaudid IV given, with relief. IV site with resistance, poor peripheral IV site, requested for midline
--- NOTE | 2019-04-02 19:00 | NUR ---
PATIENT IN BED ALERT ORIENTED, NO SOB NO CHEST PAIN, TELE MONITOR SINUS RHYTHM. PATIENT HAS NO COMPLAIN OF PAIN AT THIS TIME, NO ITCHING AT THIS TIME. CONT TO MONITOR.
[2019-04-02 20:55] VITALS: BP_SYST 140; BP_SYST 170; BP_DIAS 86; BP_DIAS 90
--- NOTE | 2019-04-02 23:57 | NUR ---
MIDLINE INSERTED BY PINO, TOLERATE WELL, R UPPER ARM #18, WITH GOOD BLOOD RETURN.
[2019-04-03] VITALS: BP 140/75
[2019-04-03] MEDS: HYDROMORPHONE 1 MG/1 ML DISP.SYRIN IV PRN ×5 (00:10→21:14)
[2019-04-03 04:00] VITALS: BP 145/71
[2019-04-03] MEDS: diphenhydrAMINE 50 MG/1 ML VIAL IV PRN ×3 (04:06→18:29)
[2019-04-03 05:07] LABS: HEPATITIS B SURFACE AB Reactive (.); HEPATITIS B SURFACE AG Negative (Negative)
--- NOTE | 2019-04-03 06:44 | NUR ---
PATIENT SLEPT INTERMITTENTLY, CONT ON PAIN MANAGEMENT, WITH EPISODE OF GEN BODY ITCHING GIVEN BENADRYL WITH EFFECTIVE RESULTS, CONT TO MONITOR.
[2019-04-03 06:52] LABS: BASOPHILS % (AUTO) 1.2 % (0.0-2.0); EOSINOPHILS # (AUTO) 0.2 K/uL (0.0-0.7); HEMATOCRIT 29.5 % (31.2-41.9); HEMOGLOBIN 9.5 g/dL (10.9-14.3); LYMPHOCYTES # (AUTO) 0.6 K/uL (20.0-40.0); LYMPHOCYTES % (AUTO) 20.2 % (20.5-51.5); MEAN CORPUSCULAR HEMOGLOBIN 30.4 uug (24.7-32.8); MEAN CORPUSCULAR HGB CONC 32 g/dL (32.3-35.6); MEAN CORPUSCULAR VOLUME 94.5 fL (75.5-95.3); MONOCYTES # (AUTO) 0.3 K/uL (2.0-10.0); NEUTROPHILS # (AUTO) 1.7 K/uL (1.8-8.9); NEUTROPHILS % (AUTO) 60.6 % (38.5-71.5); PLATELET COUNT (AUTO) 77 K/uL (179-408); RED BLOOD CELL COUNT(AUTO) 3.13 MIL/uL (3.63-4.92); WHITE BLOOD COUNT (AUTO) 2.7 K/uL (3.8-11.8)
[2019-04-03 07:03] LABS: PHOSPHOROUS 3.6 mg/dL (2.5-4.9); POTASSIUM 4.9 mmol/L (3.5-5.1)
[2019-04-03] MEDS: PANTOPRAZOLE SODIUM 40 MG TABLET.DR PO SCH (07:05)
[2019-04-03 07:08] LABS: CREATININE 8.8 mg/dL (0.6-1.3)
[2019-04-03] MEDS: HYDROXYCHLOROQUINE SULFATE 200 MG TABLET PO SCH (08:14)
[2019-04-03] MEDS: SEVELAMER CARBONATE 800 MG TABLET PO SCH ×3 (08:14→17:53)
[2019-04-03] MEDS: CLONIDINE HCL 0.1 MG TABLET PO SCH ×4 (08:15→17:52)
[2019-04-03] MEDS: DOXAZOSIN 2 MG TABLET PO SCH ×2 (08:15→22:38)
[2019-04-03] MEDS: BENAZEPRIL HCL 20 MG TABLET PO SCH ×2 (08:16→22:38)
[2019-04-03] MEDS: hydrALAZINE HCL 25 MG TABLET PO SCH ×2 (08:16→22:40)
[2019-04-03] MEDS: predniSONE 2.5 MG TABLET PO SCH (08:16)
[2019-04-03] MEDS: CARVEDILOL 25 MG TABLET PO SCH ×2 (08:16→17:52)
[2019-04-03] MEDS: LOPERAMIDE HCL 2 MG CAPSULE PO PRN (08:17)
[2019-04-03] MEDS: AMLODIPINE 10 MG TABLET PO SCH ×2 (08:17→22:40)
[2019-04-03 12:03] VITALS: BP 141/91
[2019-04-03] MEDS ORDERED: CINACALCET HCL 30 MG TABLET PO SCH (15:30)
[2019-04-03 16:05] VITALS: BP 167/109
[2019-04-03 18:00] VITALS: BP 142/91
--- NOTE | 2019-04-03 19:00 | NUR ---
PATIENT ALERT ORIENTED NO SOB NO CHEST PAIN, TELE MONITOR SINUS RHYTHM, BP STABLE, CONT PAIN MANAGEMENT. CONT TO MONITOR.
[2019-04-03 20:00] VITALS: BP 152/102
--- NOTE | 2019-04-03 23:01 | NUR ---
GAVE REPORT TO EMY TONG INCOMING NURSE.
[2019-04-04] VITALS: BP 155/104
[2019-04-04 05:00] VITALS: BP 166/107
[2019-04-04] MEDS: diphenhydrAMINE 50 MG/1 ML VIAL IV PRN ×3 (05:27→18:52)
[2019-04-04] MEDS: HYDROMORPHONE 1 MG/1 ML DISP.SYRIN IV PRN ×2 (05:28→10:05)
[2019-04-04 06:30] LABS: BASOPHILS % (AUTO) 1.2 % (0.0-2.0); EOSINOPHILS # (AUTO) 0.2 K/uL (0.0-0.7); EOSINOPHILS % (AUTO) 6.7 % (0.0-7.0); HEMATOCRIT 29.3 % (31.2-41.9); HEMOGLOBIN 9.5 g/dL (10.9-14.3); LYMPHOCYTES # (AUTO) 0.6 K/uL (20.0-40.0); LYMPHOCYTES % (AUTO) 22.4 % (20.5-51.5); MEAN CORPUSCULAR HGB CONC 32 g/dL (32.3-35.6); MEAN CORPUSCULAR VOLUME 93.1 fL (75.5-95.3); MONOCYTES # (AUTO) 0.2 K/uL (2.0-10.0); MONOCYTES % (AUTO) 9.1 % (0.0-11.0); NEUTROPHILS # (AUTO) 1.5 K/uL (1.8-8.9); NEUTROPHILS % (AUTO) 60.6 % (38.5-71.5); PLATELET COUNT (AUTO) 77 K/uL (179-408); RED BLOOD CELL COUNT(AUTO) 3.15 MIL/uL (3.63-4.92); WHITE BLOOD COUNT (AUTO) 2.5 K/uL (3.8-11.8)
[2019-04-04 06:36] LABS: MAGNESIUM 2.2 mg/dL (1.8-2.4); PHOSPHOROUS 3.6 mg/dL (2.5-4.9); POTASSIUM 5.1 mmol/L (3.5-5.1)
[2019-04-04] MEDS: PANTOPRAZOLE SODIUM 40 MG TABLET.DR PO SCH (06:59)
[2019-04-04 07:02] LABS: CREATININE 10.5 mg/dL (0.6-1.3)
--- NOTE | 2019-04-04 07:40 | NUR ---
RECEIVED PATIENT IN BED, ASLEEP, EASY TO AWAKE. RIGHT UPPER MIDLINE INTACT AND FLUSHED. RIGHT GROIN DIALYSIS CATH INTACT. PATIENT DENIES PAIN AT THIS TIME. SR 80'S ON CO FOUNDER AND CHAIRMAN. SAFETY AND FALL PREVENTION IN PLACE. CALL LIGHT IN REACH. BED IN LOW AND LOCKED POSITION. WILL CONTINUE TO MONITOR.
[2019-04-04] MEDS: SEVELAMER CARBONATE 800 MG TABLET PO SCH ×3 (08:57→17:31)
[2019-04-04] MEDS: BENAZEPRIL HCL 20 MG TABLET PO SCH (09:02)
[2019-04-04] MEDS: DOXAZOSIN 2 MG TABLET PO SCH (09:03)
[2019-04-04] MEDS: HYDROXYCHLOROQUINE SULFATE 200 MG TABLET PO SCH (09:03)
[2019-04-04] MEDS: AMLODIPINE 10 MG TABLET PO SCH (09:03)
[2019-04-04] MEDS: CARVEDILOL 25 MG TABLET PO SCH ×2 (09:03→17:32)
[2019-04-04] MEDS: CLONIDINE HCL 0.1 MG TABLET PO SCH ×3 (09:04→17:31)
[2019-04-04] MEDS: predniSONE 2.5 MG TABLET PO SCH (09:04)
[2019-04-04] MEDS: hydrALAZINE HCL 25 MG TABLET PO SCH (09:04)
[2019-04-04 12:01] VITALS: BP 133/85
[2019-04-04] MEDS ORDERED: HYDROMORPHONE 1 MG/1 ML DISP.SYRIN IV ONE (14:45)
[2019-04-04] MEDS ORDERED: CINACALCET HCL 30 MG TABLET PO SCH (15:15)
[2019-04-04] MEDS ORDERED: SUMATRIPTAN SUCCINATE 6 MG/0.5 ML VIAL SQ ONE (15:30)
[2019-04-04] MEDS ORDERED: TRIAMCINOLONE ACET 0.1% CREAM 15 GM TUBE TOP SCH (17:00)
[2019-04-04 17:13] VITALS: BP 129/79
[2019-04-04 17:32] VITALS: BP 159/99
--- NOTE | 2019-04-04 19:26 | NUR ---
PATIENT IN BED, ASLEEP, EASY TO AWAKE. RIGHT UPPER MIDLINE INTACT AND FLUSHED. RIGHT GROIN DIALYSIS CATH INTACT.PATIENT HAD DIALISIS TODAY. TREATED WITH PAIN MEDICATIONS ORDERED.. SR 80'S ON BLIND SLAT STAPLING MACHINE OPERATOR. SAFETY AND FALL PREVENTION IN PLACE. CALL LIGHT IN REACH. BED IN LOW AND LOCKED POSITION. WILL REPORT TO ONCOMING NURSE.
== END 2019-04-04 19:30 | disposition home or self-care (01) | DRG 865 ==
LOC: ER 11:22 → TELE3 14:58
PROVIDERS: ADMIT Nurse Practitioner Acute Care; ATTEND Nurse Practitioner Acute Care
PROC: 5A1D70Z Performance of Urinary Filtration, Intermittent, Less than 6 Hours Per Day (ICD-10-PCS; principal; 2019-04-02)
PROC: 05HB33Z Insertion of Infusion Device into Right Basilic Vein, Percutaneous Approach (ICD-10-PCS; 2019-04-02)
DX: B34.9 Viral infection, unspecified (principal); N18.6 End stage renal disease; I16.9 Hypertensive crisis, unspecified; F11.20 Opioid dependence, uncomplicated; D61.818 Other pancytopenia; I13.11 Hypertensive heart and chronic kidney disease without heart failure, with stage 5 chronic kidney disease, or end stage renal disease; Z99.2 Dependence on renal dialysis; G43.909 Migraine, unspecified, not intractable, without status migrainosus; G40.909 Epilepsy, unspecified, not intractable, without status epilepticus; G89.4 Chronic pain syndrome; D63.1 Anemia in chronic kidney disease; F41.0 Panic disorder [episodic paroxysmal anxiety]; M79.7 Fibromyalgia; K58.9 Irritable bowel syndrome, unspecified; M32.9 Systemic lupus erythematosus, unspecified; K21.9 Gastro-esophageal reflux disease without esophagitis; Z91.19 Patient's noncompliance with other medical treatment and regimen; Z91.14 Patient's other noncompliance with medication regimen; F32.9 Major depressive disorder, single episode, unspecified; Z86.73 Personal history of transient ischemic attack (TIA), and cerebral infarction without residual deficits; F12.90 Cannabis use, unspecified, uncomplicated; M89.8X9 Other specified disorders of bone, unspecified site; E11.22 Type 2 diabetes mellitus with diabetic chronic kidney disease; Z82.49 Family history of ischemic heart disease and other diseases of the circulatory system; R11.2 Nausea with vomiting, unspecified
CPT/HCPCS: 36415; 70030-TC; 70450; 71045; 83605; 83735; 84100; 85025; 85730; 86706; 87040; 87340; 87400; 93005; A4663; A9150; C9113; G0378; J1170; J1200; J2405; J3030; J3490; J7512

== ENCOUNTER 2019-05-16 11:16 | Inpatient (IN) | payer OTHER ==
[~2019-05-16] VITALS: Ht 157.5 cm; Wt 54.1 kg
--- NOTE | 2019-05-16 11:46 | NUR ---
PT IS IN ROOM #2B. DR BROOKE EVALUATED THE PT.
[2019-05-16] MEDS ORDERED: IV NORMAL SALINE 500 ML BAG IV ONE (12:00)
[2019-05-16 12:45] LABS: EOSINOPHILS # (AUTO) 0.1 K/uL (0.0-0.7); EOSINOPHILS % (AUTO) 4.4 % (0.0-7.0); HEMATOCRIT 22.2 % (31.2-41.9); LYMPHOCYTES # (AUTO) 0.5 K/uL (20.0-40.0); LYMPHOCYTES % (AUTO) 17.4 % (20.5-51.5); MEAN CORPUSCULAR HEMOGLOBIN 33.1 uug (24.7-32.8); MEAN CORPUSCULAR HGB CONC 34 g/dL (32.3-35.6); MONOCYTES # (AUTO) 0.2 K/uL (2.0-10.0); MONOCYTES % (AUTO) 8.7 % (0.0-11.0); NEUTROPHILS % (AUTO) 68.5 % (38.5-71.5); PLATELET COUNT (AUTO) 104 K/uL (179-408); WHITE BLOOD COUNT (AUTO) 2.9 K/uL (3.8-11.8)
[2019-05-16 12:46] LABS: HEMOGLOBIN 7.4 g/dL (10.9-14.3); RED BLOOD CELL COUNT(AUTO) 2.24 MIL/uL (3.63-4.92)
[2019-05-16 12:52] LABS: ALANINE AMINOTRANSFERASE 8 U/L (14-59); ALKALINE PHOSPHATASE 119 U/L (50-136); ASPARTATE AMINOTRANSFERASE 12 U/L (15-37); BILIRUBIN,TOTAL 0.4 mg/dL (0.2-1.0); CARBON DIOXIDE 31 mmol/L (21-32); CHLORIDE 96 mmol/L (98-107); CREATININE 4.5 mg/dL (0.6-1.3); GLUCOSE 122 mg/dL (74-106); LIPASE 68 U/L (73-393); POTASSIUM 3.6 mmol/L (3.5-5.1); TOTAL PROTEIN, SERUM 7.4 g/dL (6.4-8.2); UREA NITROGEN, BLOOD 12 mg/dL (7-18)
[2019-05-16 12:54] LABS: BILIRUBIN,DIRECT < 0.1 mg/dL (0.0-0.2)
[2019-05-16] MEDS ORDERED: CARV25TA2 PO (14:06)
[2019-05-16] MEDS ORDERED: CINA60TA PO (14:06)
[2019-05-16] MEDS ORDERED: CLON0.3T PO (14:06)
[2019-05-16] MEDS ORDERED: iron IV (14:10)
--- NOTE | 2019-05-16 14:11 | NUR ---
PT WAS TRANSFERED TO ROOM #318. REPORT WAS GIVEN TO FAMILY AND CONSUMER SCIENCES PROFESSOR.
[2019-05-16] MEDS ORDERED: Z GUARD REMEDY PASTE 57 GM TUBE TOP PRN (14:45)
[2019-05-16] MEDS ORDERED: ACETAMINOPHEN 325 MG TABLET PO PRN (14:45)
[2019-05-16] MEDS ORDERED: MAGNESIUM HYDROXIDE 30 ML LIQUID UDC PO PRN (14:45)
[2019-05-16] MEDS ORDERED: ONDANSETRON 4 MG/2 ML VIAL IV PRN (14:45)
--- NOTE | 2019-05-16 15:00 | NUR ---
pt refused to put the heart monitor md made aware.
--- NOTE | 2019-05-16 15:00 | NUR ---
33 year old female received from er via gurney to room 318 for anemia ,pt is axox4 .md called for admission orders,call light with in reach
[2019-05-16] MEDS: CARVEDILOL 25 MG TABLET PO SCH (15:21)
[2019-05-16 16:37] VITALS: BP 186/112
--- NOTE | 2019-05-16 16:44 | NUR ---
pt bp is 188/119 made aware pt still refused to wear tele
[2019-05-16] MEDS ORDERED: Medication Not On Formulary EA (Benazepril Hcl 40 MG) PO SCH (17:00)
[2019-05-16] MEDS ORDERED: SEVELAMER CARBONATE 3200 MG PO SCH (17:00)
[2019-05-16] MEDS ORDERED: DOXAZOSIN 1 MG TABLET PO SCH (17:00)
[2019-05-16] MEDS: SEVELAMER CARBONATE 800 MG TABLET PO SCH (17:18)
[2019-05-16] MEDS ORDERED: hydrALAZINE HCL 20 MG/1 ML VIAL IV PRN (18:45)
--- NOTE | 2019-05-16 19:30 | NUR ---
RECEIVED PT IN NO ACUTE DISTRESS. IV INTACT. PT ON DIALYSIS OF THE MOMENT.SAFETY AND COMFORT PROVIDED. WILL CONTINUE TO MONITOR.
[2019-05-16] MEDS: DOXAZOSIN 2 MG TABLET PO SCH (20:45)
[2019-05-16] MEDS: hydrALAZINE HCL 25 MG TABLET PO SCH (20:45)
[2019-05-16] MEDS: AMLODIPINE 10 MG TABLET PO SCH (20:46)
[2019-05-16] MEDS: CLONIDINE HCL 0.3 MG TABLET PO SCH (20:46)
[2019-05-16] MEDS: BENAZEPRIL HCL 20 MG TABLET PO SCH (20:46)
--- NOTE | 2019-05-16 20:50 | NUR ---
PT SIGNED CONSENT FORM FOR BLOOD TRANSFUSION HOWEVER PT REFUSED BLOOD TRANSFUSION . SHE WANTS BLOOD TRANSFUSION TO BE DONE ON HER PERMACATH ACCESS DURING DIALYSIS. PT IN NO ACUTE DISTRESS. PT WANTS STRONGER PAIN MEDICATION.
--- NOTE | 2019-05-16 21:00 | NUR ---
CHARGE NURSE AWARE OF THE BLOOD TRANSFUSION THAT PT REFUSED. NOTIFY HEALTH PLAN SPECIALIST ALSO REGARDING PT REFUSAL. SHE WANTS IT TO BE GIVEN WITH DIALYSIS. PT IN NO ACUTE DISTRESS. WILL CONTINUE TO MONITOR.
--- NOTE | 2019-05-16 21:19 | NUR ---
2030 Addendum: 05/16/19 at 2120 by ROMEO VILLEDA RN TYPE ERROR
[2019-05-16 21:25] VITALS: BP 173/102
[2019-05-17] MEDS ORDERED: SUMATRIPTAN SUCCINATE 6 MG/0.5 ML VIAL SQ ONE (05:15)
[2019-05-17 05:24] VITALS: BP 113/73
[2019-05-17] MEDS ORDERED: SUMATRIPTAN SUCCINATE 50 MG TABLET PO ONE (05:30)
--- NOTE | 2019-05-17 05:39 | NUR ---
PT REFUSED IMITREX SUBCUTANEOUS. CALLED FUSE CUTTER IF IT CAN BE CHANGED TO PO. ORDERED IMITREX 50 MG PO FOR PT MIGRAINE BY DR. WILBER ROSARIO.
[2019-05-17 05:47] LABS: EOSINOPHILS # (AUTO) 0.1 K/uL (0.0-0.7); EOSINOPHILS % (AUTO) 4.8 % (0.0-7.0); HEMATOCRIT 23.5 % (31.2-41.9); HEMOGLOBIN 7.6 g/dL (10.9-14.3); LYMPHOCYTES # (AUTO) 0.5 K/uL (20.0-40.0); LYMPHOCYTES % (AUTO) 19.3 % (20.5-51.5); MEAN CORPUSCULAR HEMOGLOBIN 32.1 uug (24.7-32.8); MEAN CORPUSCULAR HGB CONC 32 g/dL (32.3-35.6); MEAN CORPUSCULAR VOLUME 99.9 fL (75.5-95.3); MONOCYTES # (AUTO) 0.2 K/uL (2.0-10.0); MONOCYTES % (AUTO) 7.7 % (0.0-11.0); NEUTROPHILS # (AUTO) 1.8 K/uL (1.8-8.9); NEUTROPHILS % (AUTO) 67.2 % (38.5-71.5); PLATELET COUNT (AUTO) 98 K/uL (179-408); WHITE BLOOD COUNT (AUTO) 2.7 K/uL (3.8-11.8)
[2019-05-17 05:55] LABS: RED BLOOD CELL COUNT(AUTO) 2.36 MIL/uL (3.63-4.92)
[2019-05-17 05:58] LABS: CREATININE 4.1 mg/dL (0.6-1.3); MAGNESIUM 1.9 mg/dL (1.8-2.4); PHOSPHOROUS 2.1 mg/dL (2.5-4.9)
[2019-05-17] MEDS: PANTOPRAZOLE SODIUM 40 MG TABLET.DR PO SCH (06:03)
--- NOTE | 2019-05-17 06:14 | NUR ---
PT SLEPT INTERMITTENTLY. PT IN NO ACUTE DISTRESS. IV INTACT. PRESCRIBED MEDICATION GIVEN AND PT TOLERATED IT WELL. IMITREX GIVEN . PT TOLERATED IT WELL.SAFETY AND COMFORT PROVIDED. WILL ENDORSE TO INCOMING NURSE FOR CONTINUITY OF CARE.
[2019-05-17 06:35] LABS: EOSINOPHILS % (MANUAL) 4 % (0-8); LYMPHOCYTES % (MANUAL) 28 % (20-40); MONOCYTES % (MANUAL) 8 % (2-10); NEUTROPHILS % (MANUAL) 60 % (42-75)
[2019-05-17 06:38] LABS: THYROID STIMULATING HORMONE 1.392 mIU/mL (0.358-3.740)
[2019-05-17 07:02] LABS: *BILIRUBIN,URIN NEGATIVE (NEGATIVE); *BLOOD, URINE NEGATIVE (NEGATIVE); *CLARITY,URINE CLOUDY (CLEAR); *COLOR,URINE YELLOW (YELLOW); *KETONES,URINE NEGATIVE (NEGATIVE); *UROBILINOGEN,URINE 0.2 E.U./dl (NORMAL); LEUKOCYTE ESTERASE ,URINE NEGATIVE (NEGATIVE); NITRITE, URINE NEGATIVE (NEGATIVE); PH,URINE >=9.0 (5.0-8.0); UGLUCOSE NEGATIVE (NEGATIVE)
--- NOTE | 2019-05-17 07:20 | NUR ---
RECEIVED PATIENT IN BED AWAKE AND ALERT. NO C/O PAIN AND NO S/S OF ACUTE DISTRESS NOTED AT THIS TIME. KEPT CLEAN AND DRY AT ALL TIMES. CALL LIGHT WITHIN REACH, SAFETY AND COMFORT PROVIDED. CONTINUE TO MONITOR.
[2019-05-17 08:08] LABS: HEPATITIS B SURFACE AB Reactive (.); HEPATITIS B SURFACE AG Negative (Negative)
[2019-05-17] MEDS: SEVELAMER CARBONATE 800 MG TABLET PO SCH ×3 (08:50→17:21)
[2019-05-17] MEDS: CARVEDILOL 25 MG TABLET PO SCH ×2 (08:51→17:25)
[2019-05-17] MEDS: BENAZEPRIL HCL 20 MG TABLET PO SCH ×2 (08:53→20:33)
[2019-05-17] MEDS: CLONIDINE HCL 0.3 MG TABLET PO SCH ×2 (08:53→20:32)
[2019-05-17] MEDS: CINACALCET HCL 30 MG TABLET PO SCH (08:54)
[2019-05-17] MEDS: hydrALAZINE HCL 25 MG TABLET PO SCH ×2 (08:54→20:31)
[2019-05-17] MEDS: AMLODIPINE 10 MG TABLET PO SCH ×2 (08:54→20:33)
[2019-05-17] MEDS: DOXAZOSIN 2 MG TABLET PO SCH ×2 (08:59→20:32)
[2019-05-17] MEDS: HYDROXYCHLOROQUINE SULFATE 200 MG TABLET PO SCH (08:59)
[2019-05-17] MEDS ORDERED: CINACALCET HCL 60 MG PO SCH (09:00)
[2019-05-17] MEDS ORDERED: Medication Not On Formulary EA (Esomeprazole Mag Trihydrate (Nexium) 40 MG) PO SCH (09:00)
--- NOTE | 2019-05-17 09:00 | NUR ---
PATIENT REFUSED PT STATING THAT SHE DOESN'T NEED IT.
[2019-05-17 09:01] LABS: BACTERIA,URINE FEW /HPF (NONE SEEN); RBC,URINE NONE SEEN /HPF (0-3); SQUAMOUS EPITHELIAL CELL,UR MANY /HPF (NONE SEEN); WBC,URINE 0-3 /HPF (0-3)
[2019-05-17] MEDS: predniSONE 2.5 MG TABLET PO SCH (09:11)
[2019-05-17] MEDS ORDERED: CALC667T6 PO (11:02)
[2019-05-17 11:59] VITALS: BP 162/107
--- NOTE | 2019-05-17 14:00 | NUR ---
PATIENT REFUSED STOOL TO BE COLLECTED
[2019-05-17 15:44] VITALS: BP 155/104
[2019-05-17] MEDS ORDERED: EPOETIN ALFA 20,000 UNIT/ML ML SQ ONE (16:00)
[2019-05-17] MEDS: HYDROMORPHONE 1 MG/1 ML DISP.SYRIN IV PRN ×3 (16:31→22:43)
--- NOTE | 2019-05-17 19:30 | NUR ---
RECEIVED PT AWAKE, ALERT AND ORIENTEDX4. PT IN NO ACUTE DISTRESS. IV INTACT. SAFETY AND COMFORT PROVIDED. ALL NEEDS ARE MET. WILL ENDORSE TO INCOMING NURSE FOR CONTINUITY OF CARE.
--- NOTE | 2019-05-17 19:32 | NUR ---
PATIENT AWAKE AND ALERT. NO C/O PAIN AND NO S/S OF ACUTE DISTRESS NOTED AT THIS TIME. KEPT CLEAN AND DRY AT ALL TIMES. CALL LIGHT WITHIN REACH, SAFETY AND COMFORT PROVIDED. CONTINUE TO MONITOR.
[2019-05-17 20:24] VITALS: BP 158/107
[2019-05-18] MEDS: HYDROMORPHONE 1 MG/1 ML DISP.SYRIN IV PRN ×4 (04:54→20:24)
--- NOTE | 2019-05-18 05:20 | NUR ---
PT SLEPT INTERMITTENTLY. PT IN NO ACUTE DISTRESS. IV INTACT. PRESCRIBED MEDICATION GIVEN AND PT TOLERATED IT WELL. DILAUDID GIVEN AT 2243H and 0454h FOR PAIN ON HER LEFT THIGH. PT TOLERATED IT WELL. SAFETY AND COMFORT PROVIDED. ALL NEEDS ARE MET. WILL ENDORSE TO INCOMING NURSE FOR CONTINUITY OF CARE.
[2019-05-18] MEDS: PANTOPRAZOLE SODIUM 40 MG TABLET.DR PO SCH (06:08)
[2019-05-18 07:29] LABS: BASOPHILS % (AUTO) 0.8 % (0.0-2.0); EOSINOPHILS # (AUTO) 0.2 K/uL (0.0-0.7); EOSINOPHILS % (AUTO) 5.6 % (0.0-7.0); HEMATOCRIT 22.2 % (31.2-41.9); LYMPHOCYTES # (AUTO) 0.6 K/uL (20.0-40.0); LYMPHOCYTES % (AUTO) 18.2 % (20.5-51.5); MEAN CORPUSCULAR HEMOGLOBIN 32.4 uug (24.7-32.8); MEAN CORPUSCULAR HGB CONC 32 g/dL (32.3-35.6); MEAN CORPUSCULAR VOLUME 100.7 fL (75.5-95.3); MONOCYTES # (AUTO) 0.3 K/uL (2.0-10.0); MONOCYTES % (AUTO) 7.5 % (0.0-11.0); NEUTROPHILS # (AUTO) 2.4 K/uL (1.8-8.9); NEUTROPHILS % (AUTO) 67.9 % (38.5-71.5); PLATELET COUNT (AUTO) 100 K/uL (179-408); WHITE BLOOD COUNT (AUTO) 3.5 K/uL (3.8-11.8)
--- NOTE | 2019-05-18 07:30 | NUR ---
Received patient in bed, awake and verbally responsive and with ongoing Dialysis with HD Nurse at bedside. No signs of distress noted. No SOB. No complain of Pain or discomfort at this time. Kept the call light within easy reach. Will continue to monitor.
[2019-05-18 07:35] LABS: CREATININE 6.5 mg/dL (0.6-1.3); POTASSIUM 5.2 mmol/L (3.5-5.1)
[2019-05-18 07:42] LABS: HEMOGLOBIN 7.1 g/dL (10.9-14.3)
[2019-05-18] MEDS: SEVELAMER CARBONATE 800 MG TABLET PO SCH ×3 (08:00→17:28)
[2019-05-18] MEDS: CINACALCET HCL 30 MG TABLET PO SCH (10:16)
[2019-05-18] MEDS: BENAZEPRIL HCL 20 MG TABLET PO SCH ×2 (10:16→21:42)
[2019-05-18] MEDS: DOXAZOSIN 2 MG TABLET PO SCH ×2 (10:17→21:44)
[2019-05-18] MEDS: hydrALAZINE HCL 25 MG TABLET PO SCH ×2 (10:17→21:42)
[2019-05-18] MEDS: CLONIDINE HCL 0.3 MG TABLET PO SCH ×2 (10:17→21:43)
[2019-05-18] MEDS: AMLODIPINE 10 MG TABLET PO SCH ×2 (10:18→21:43)
[2019-05-18] MEDS: predniSONE 2.5 MG TABLET PO SCH (10:18)
[2019-05-18] MEDS: HYDROXYCHLOROQUINE SULFATE 200 MG TABLET PO SCH (10:18)
[2019-05-18] MEDS: CARVEDILOL 25 MG TABLET PO SCH ×2 (10:19→17:29)
[2019-05-18 12:08] VITALS: BP 157/101
[2019-05-18 16:08] VITALS: BP 155/100
--- NOTE | 2019-05-18 18:15 | NUR ---
Patient in bed, awake and verbally responsive. No signs of distress noted. No SOB. Pain medication dilaudid 0.25mg given as ordered for Pain. Patient was dialyzed today with output of 2500. tolerated well. all due medications given as ordered. kept clean and comfortable, kept the call light within easy reach. Will endorse to Oncoming Nurse.
[2019-05-18 20:18] VITALS: BP 151/94
[2019-05-18] MEDS ORDERED: HYDROCORTISONE 1% CREAM 30 GM TUBE TP PRN (21:15)
--- NOTE | 2019-05-18 22:20 | NUR ---
Patient requesting for antihistamine for itching on her L thigh d/t christiano, n.o from Dr. Jansen for Hydrocortisone cream BID PRN for itching. Informed patient about the new order but patient stated she wants oral meds because she can't apply it to her thigh. Informed Dr. Jansen about patient's concern w/ n.o for Benadryl 25mg PO BID PRN for itching. Patient made aware and agreed
[2019-05-18] MEDS ORDERED: diphenhydrAMINE 25 MG CAP PO PRN (23:00)
[2019-05-19 04:10] VITALS: BP 139/95
[2019-05-19] MEDS: HYDROMORPHONE 1 MG/1 ML DISP.SYRIN IV PRN ×3 (05:34→14:00)
[2019-05-19 06:22] LABS: EOSINOPHILS # (AUTO) 0.2 K/uL (0.0-0.7); EOSINOPHILS % (AUTO) 5.1 % (0.0-7.0); HEMATOCRIT 23.8 % (31.2-41.9); HEMOGLOBIN 7.7 g/dL (10.9-14.3); LYMPHOCYTES # (AUTO) 0.7 K/uL (20.0-40.0); LYMPHOCYTES % (AUTO) 16.8 % (20.5-51.5); MEAN CORPUSCULAR HEMOGLOBIN 32.7 uug (24.7-32.8); MEAN CORPUSCULAR HGB CONC 32 g/dL (32.3-35.6); MEAN CORPUSCULAR VOLUME 101.7 fL (75.5-95.3); MONOCYTES # (AUTO) 0.3 K/uL (2.0-10.0); MONOCYTES % (AUTO) 7.6 % (0.0-11.0); NEUTROPHILS # (AUTO) 2.9 K/uL (1.8-8.9); NEUTROPHILS % (AUTO) 69.5 % (38.5-71.5); PLATELET COUNT (AUTO) 110 K/uL (179-408); WHITE BLOOD COUNT (AUTO) 4.2 K/uL (3.8-11.8)
--- NOTE | 2019-05-19 06:30 | NUR ---
Patient slept intermittently. No SOB noted. IV on R hand 20g intact and patent. Patient noted non compliant w/ her fluid restriction, risks and benefits explained. All needs attended. Will endorse accordingly
[2019-05-19 06:36] LABS: RED BLOOD CELL COUNT(AUTO) 2.34 MIL/uL (3.63-4.92)
[2019-05-19] MEDS: PANTOPRAZOLE SODIUM 40 MG TABLET.DR PO SCH (06:54)
[2019-05-19 07:06] LABS: CREATININE 6.1 mg/dL (0.6-1.3)
--- NOTE | 2019-05-19 07:30 | NUR ---
Received patient in bed, On CPAP with daughter at bedside. No signs of distress noted. No signs of SOB. No signs of pain or discomfort. Hoffman catheter draining with clear yellow Urine. Kept comfortable. Will continue to monitor. Addendum: 05/19/19 at 1234 by MYLA SCHWARTZ RN Received patient in bed, awake , alert and verbally responsive. No signs of distress noted. No SOB. No complain of Pain or discomfort at this time. kept clean and comfortable. Will continue to monitor.
[2019-05-19] MEDS: SEVELAMER CARBONATE 800 MG TABLET PO SCH ×2 (08:10→11:55)
[2019-05-19] MEDS: CARVEDILOL 25 MG TABLET PO SCH (08:11)
[2019-05-19] MEDS: hydrALAZINE HCL 25 MG TABLET PO SCH (08:47)
[2019-05-19] MEDS: DOXAZOSIN 2 MG TABLET PO SCH (08:47)
[2019-05-19] MEDS: AMLODIPINE 10 MG TABLET PO SCH (08:48)
[2019-05-19] MEDS: BENAZEPRIL HCL 20 MG TABLET PO SCH (08:48)
[2019-05-19] MEDS: CINACALCET HCL 30 MG TABLET PO SCH (08:48)
[2019-05-19] MEDS: predniSONE 2.5 MG TABLET PO SCH (08:48)
[2019-05-19] MEDS: HYDROXYCHLOROQUINE SULFATE 200 MG TABLET PO SCH (08:48)
[2019-05-19] MEDS: CLONIDINE HCL 0.3 MG TABLET PO SCH (08:48)
[2019-05-19] MEDS ORDERED: diphenhydrAMINE 25 MG CAP PO PRN (09:30)
[2019-05-19] MEDS ORDERED: EPOETIN ALFA 10,000 UNITS/ML VIAL SQ ONE (10:15)
[2019-05-19 11:16] VITALS: BP 139/92
--- NOTE | 2019-05-19 14:40 | NUR ---
Patient is awake, alert and verbally responsive. No signs of distress noted. No SOB. Pain medication, Dilaudid 0.25mg given as ordered for Pain. Procrit 10,000 units SQ given as ordered. recent Hgb is 7.7. Patient with Order to be discharge today, Discharge Instructions given to patient and verbalized understanding. All belongings signed and sent with Patient. Removed Wrist band and IV site. Patient was discharge via Private car in stable condition.
== END 2019-05-19 14:40 | disposition home or self-care (01) | DRG 291 ==
LOC: ER 11:16 → TELE3 14:16 → MEDSURG3 15:25
PROVIDERS: ADMIT Nurse Practitioner Acute Care; ATTEND Nurse Practitioner Acute Care
PROC: 5A1D70Z Performance of Urinary Filtration, Intermittent, Less than 6 Hours Per Day (ICD-10-PCS; principal; 2019-05-16)
DX: I13.2 Hypertensive heart and chronic kidney disease with heart failure and with stage 5 chronic kidney disease, or end stage renal disease (principal); I50.31 Acute diastolic (congestive) heart failure; N18.6 End stage renal disease; J96.01 Acute respiratory failure with hypoxia; E87.1 Hypo-osmolality and hyponatremia; D61.818 Other pancytopenia; Z99.2 Dependence on renal dialysis; M79.7 Fibromyalgia; K58.9 Irritable bowel syndrome, unspecified; Z86.73 Personal history of transient ischemic attack (TIA), and cerebral infarction without residual deficits; I27.20 Pulmonary hypertension, unspecified; D63.8 Anemia in other chronic diseases classified elsewhere; I08.3 Combined rheumatic disorders of mitral, aortic and tricuspid valves; G89.4 Chronic pain syndrome; G40.909 Epilepsy, unspecified, not intractable, without status epilepticus; M89.8X9 Other specified disorders of bone, unspecified site; M32.9 Systemic lupus erythematosus, unspecified; Z83.3 Family history of diabetes mellitus; K21.9 Gastro-esophageal reflux disease without esophagitis; Z82.49 Family history of ischemic heart disease and other diseases of the circulatory system; Z79.899 Other long term (current) drug therapy; G43.909 Migraine, unspecified, not intractable, without status migrainosus; Z79.52 Long term (current) use of systemic steroids; Z86.59 Personal history of other mental and behavioral disorders
CPT/HCPCS: 36415; 70030-TC; 70450; 71045; 83690; 83735; 84100; 84443; 85025; 85730; 86706; 86850; 86900; 86901; 86920; 87086; 87340; 87400; 90937; 93005; 93307; A4663; G0378; J0360; J0885; J1170; J3030; J7030; J7512; Q0163

== ENCOUNTER 2019-08-18 15:17 | Inpatient (IN) | payer OTHER, MEDICAID ==
[~2019-08-18] VITALS: Ht 157.5 cm; Wt 52.4 kg
[~2019-08-18 15:17] MED LIST changes: +CALC667T6 PO; -CINA30TA2 PO; +CINA60TA PO; -CLON0.1T PO; +CLON0.3T PO; +iron IV
--- NOTE | 2019-08-18 15:49 | NUR ---
PATIENT C/O SOB AND "HARD TO BREATHE". PLACED ON A MONITOR. SP02 99% ON RA.
[2019-08-18] MEDS ORDERED: HYDROMORPHONE HCL 2 MG TABLET PO ONE (16:00)
[2019-08-18] MEDS ORDERED: HYDROMORPHONE 1 MG/1 ML DISP.SYRIN ONE ×3 (16:23→23:12)
[2019-08-18 16:24] LABS: BASOPHILS # (AUTO) 0.1 K/uL (0.0-8.0); BASOPHILS % (AUTO) 0.9 % (0.0-2.0); EOSINOPHILS # (AUTO) 0.2 K/uL (0.0-0.7); EOSINOPHILS % (AUTO) 3.7 % (0.0-7.0); HEMATOCRIT 21.3 % (31.2-41.9); LYMPHOCYTES # (AUTO) 0.6 K/uL (20.0-40.0); LYMPHOCYTES % (AUTO) 9.2 % (20.5-51.5); MEAN CORPUSCULAR HEMOGLOBIN 30.4 uug (24.7-32.8); MEAN CORPUSCULAR HGB CONC 32 g/dL (32.3-35.6); MEAN CORPUSCULAR VOLUME 94.7 fL (75.5-95.3); MONOCYTES # (AUTO) 0.4 K/uL (2.0-10.0); MONOCYTES % (AUTO) 6.1 % (0.0-11.0); NEUTROPHILS # (AUTO) 5.1 K/uL (1.8-8.9); NEUTROPHILS % (AUTO) 80.1 % (38.5-71.5); PLATELET COUNT (AUTO) 167 K/uL (179-408); WHITE BLOOD COUNT (AUTO) 6.3 K/uL (3.8-11.8)
[2019-08-18] MEDS ORDERED: diphenhydrAMINE 25 MG CAP PO ONE ×3 (16:24→17:43)
[2019-08-18 16:28] LABS: HEMOGLOBIN 6.9 g/dL (10.9-14.3); RED BLOOD CELL COUNT(AUTO) 2.25 MIL/uL (3.63-4.92)
[2019-08-18] MEDS ORDERED: HYDROMORPHONE 1 MG/1 ML DISP.SYRIN IV ONE ×2 (16:30→19:30)
[2019-08-18 16:37] LABS: BILIRUBIN,DIRECT 0.2 mg/dL (0.0-0.2); BILIRUBIN,TOTAL 0.5 mg/dL (0.2-1.0); POTASSIUM 4.5 mmol/L (3.5-5.1); TOTAL PROTEIN, SERUM 7.5 g/dL (6.4-8.2)
--- NOTE | 2019-08-18 16:40 | NUR ---
PATIENT C/O BACK PAIN. DILAUDID WAS GIVEN. PATIENT STATES PAIN HAS "COME DOWN."
[2019-08-18 17:11] LABS: EOSINOPHILS % (MANUAL) 1 % (0-8); LYMPHOCYTES % (MANUAL) 11 % (20-40); METAMYELOCYTES % 1 % (0-1); MONOCYTES % (MANUAL) 3 % (2-10); MYELOCYTES % 2 % (0-0); NEUTROPHILS % (MANUAL) 82 % (42-75)
--- NOTE | 2019-08-18 17:35 | NUR ---
PATIENT AWARE OF PENDING ADMISSION TO HOSPITAL.
[2019-08-18] MEDS ORDERED: LABETALOL HCL 100 MG/20 ML VIAL ONE (17:41)
--- NOTE | 2019-08-18 17:44 | NUR ---
BP IS HIGH. DR WAGONER NOTIFIED. LABETALOL GIVEN SLOWLY. BPSTILL HIGH. DR WAGONER NOTIFED
[2019-08-18] MEDS ORDERED: LABETALOL HCL 100 MG/20 ML VIAL IV ONE (18:00)
[2019-08-18] MEDS ORDERED: LABETALOL HCL 100 MG/20 ML VIAL IV PRN ×2 (18:00→18:15)
--- NOTE | 2019-08-18 18:00 | NUR ---
WILL GIVEN ANOTHER DOSE OF LABETOLOL DUE TO HIGH BP. PATIENT DENIES HEADACHE, DIZZINESS
--- NOTE | 2019-08-18 18:24 | NUR ---
ANOTHER 30 MGOF LABETOLOL GIVEN VERY SLOWLY PER MD ORDER. HR 88, BP AT 195/143. DR WAGONER NOTIFIED.
[2019-08-18] MEDS ORDERED: hydrALAZINE HCL 20 MG/1 ML VIAL ONE (18:29)
[2019-08-18] MEDS ORDERED: hydrALAZINE HCL 20 MG/1 ML VIAL IV PRN (18:30)
--- NOTE | 2019-08-18 19:00 | NUR ---
HAND OFF REPORT GIVEN TO BRANT TONG
[2019-08-18] MEDS ORDERED: ACETAMINOPHEN 325 MG TABLET PO PRN (20:00)
--- NOTE | 2019-08-18 20:20 | NUR ---
Pt placed on BIPAP (V-60) on setting of IPAP 8, EPAP 4, set resp. rate 14 and FIO2-21% via medium full face mask. No resp. distress noted. Pt appears to be tolerating BIPAP settings well. Pt to be monitored throughout the duration of the shift. V-60 alarm parameters have been checked and remain audible.
[2019-08-18] MEDS ORDERED: NITROGLYCERIN 0.4 MG/TAB BOTTLE SL ONE (20:30)
[2019-08-18] MEDS: NITROGLYCERIN 0.4 MG/TAB BOTTLE SL PRN ×3 (20:45→21:00)
--- NOTE | 2019-08-18 20:45 | NUR ---
Pt given first dose of nitroglycerin, BP 209/140, 98 P
--- NOTE | 2019-08-18 20:50 | NUR ---
Pt given second dose of Nitroglycerin. BP 199/132, pulse 98
--- NOTE | 2019-08-18 21:00 | NUR ---
Patient given 3rd dose of Nitroglycerin. 198/131 BP, pulse 98
[2019-08-18] MEDS ORDERED: NITROGLYCERIN IV 250 ML ONE (21:31)
[2019-08-18] MEDS: NITROGLYCERIN IV 250 ML IV PRN ×3 (21:39→22:40)
--- NOTE | 2019-08-18 22:20 | NUR ---
Nitroglycerin drip titrated to 70 mcg/min.
--- NOTE | 2019-08-18 22:40 | NUR ---
Nitroglycerin titrated to 90 mcg/min.
--- NOTE | 2019-08-18 23:00 | NUR ---
Nitroglycerin titrated to 100mcg/min.
--- NOTE | 2019-08-18 23:05 | NUR ---
Patient c/o severe headache, wanted to have bipap and nitroglycerin off. made aware.
[2019-08-18] MEDS ORDERED: ACETAMINOPHEN ES 500 MG TABLET ONE (23:08)
[2019-08-18] MEDS ORDERED: ACETAMINOPHEN ES 500 MG TABLET PO ONE (23:15)
[2019-08-18] MEDS ORDERED: HYDROMORPHONE 1 MG/1 ML DISP.SYRIN IV PRN (23:15)
--- NOTE | 2019-08-18 23:30 | NUR ---
Spoke with Dr. Neymar Cleveland. Per Dr. Blackmon, give all of patient's PO medications.
[2019-08-18] MEDS ORDERED: CARVEDILOL 25 MG TABLET ONE (23:44)
[2019-08-18] MEDS ORDERED: AMLODIPINE 5 MG TABLET ONE (23:45)
[2019-08-18] MEDS ORDERED: BENAZEPRIL HCL 10 MG TABLET ONE (23:46)
[2019-08-18] MEDS ORDERED: CLONIDINE HCL 0.1 MG TABLET ONE (23:46)
[2019-08-18] MEDS ORDERED: hydrALAZINE HCL 25 MG TABLET ONE (23:47)
[2019-08-18] MEDS: CLONIDINE HCL 0.3 MG TABLET PO SCH (23:53)
[2019-08-18] MEDS: hydrALAZINE HCL 25 MG TABLET PO SCH (23:53)
[2019-08-18] MEDS: CARVEDILOL 25 MG TABLET PO SCH (23:54)
[2019-08-18] MEDS: BENAZEPRIL HCL 20 MG TABLET PO SCH (23:54)
[2019-08-18] MEDS: AMLODIPINE 10 MG TABLET PO SCH (23:59)
[2019-08-18] MEDS ORDERED: DOXAZOSIN 2 MG TABLET ONE (23:59)
--- NOTE | 2019-08-19 01:06 | NUR ---
Report given to Barry TONG ARAVIND.
[2019-08-19 01:50] VITALS: BP 162/112
[2019-08-19] MEDS: HYDROMORPHONE 1 MG/1 ML DISP.SYRIN IV PRN ×6 (02:31→20:37)
[2019-08-19 05:10] VITALS: BP 156/109
[2019-08-19] MEDS: hydrALAZINE HCL 25 MG TABLET PO SCH ×3 (06:24→21:38)
[2019-08-19 06:50] LABS: BASOPHILS # (AUTO) 0.1 K/uL (0.0-8.0); BASOPHILS % (AUTO) 1.1 % (0.0-2.0); EOSINOPHILS # (AUTO) 0.3 K/uL (0.0-0.7); EOSINOPHILS % (AUTO) 5.7 % (0.0-7.0); LYMPHOCYTES # (AUTO) 0.7 K/uL (20.0-40.0); LYMPHOCYTES % (AUTO) 11.6 % (20.5-51.5); MEAN CORPUSCULAR HEMOGLOBIN 30.5 uug (24.7-32.8); MEAN CORPUSCULAR HGB CONC 32 g/dL (32.3-35.6); MONOCYTES # (AUTO) 0.4 K/uL (2.0-10.0); MONOCYTES % (AUTO) 6.6 % (0.0-11.0); NEUTROPHILS # (AUTO) 4.3 K/uL (1.8-8.9); PLATELET COUNT (AUTO) 171 K/uL (179-408); WHITE BLOOD COUNT (AUTO) 5.7 K/uL (3.8-11.8)
[2019-08-19 07:07] LABS: BILIRUBIN,TOTAL 0.6 mg/dL (0.2-1.0); MAGNESIUM 2.3 mg/dL (1.8-2.4); PHOSPHOROUS 4.4 mg/dL (2.5-4.9); POTASSIUM 5.1 mmol/L (3.5-5.1); TOTAL PROTEIN, SERUM 7.6 g/dL (6.4-8.2)
[2019-08-19 07:20] LABS: CREATININE 8.1 mg/dL (0.6-1.3)
--- NOTE | 2019-08-19 07:23 | NUR ---
Pt rested well in between care; c/o pain x2; medicated twice as well; BP more controlled; needs attended; admission procedures done; report given to Stephenson.
[2019-08-19 07:34] LABS: RED BLOOD CELL COUNT(AUTO) 2.32 MIL/uL (3.63-4.92)
[2019-08-19 07:40] LABS: HEMOGLOBIN 7.1 g/dL (10.9-14.3)
--- NOTE | 2019-08-19 08:00 | NUR ---
Discussed plan of care with patient to notify nursing for any c/o pain management, n/v, itching. Pt agreeable with plan of care. Pt ambulatory with good balance. pt has IV on left thumb patent. Pt is for dialysis today per dr nolan. HD nurse BEST nassar at the hospital tx another pt and salo is to follow. Call light is within reach.
[2019-08-19] MEDS ORDERED: HYDROXYCHLOROQUINE SULFATE 200 MG TABLET PO SCH (09:00)
[2019-08-19] MEDS: SEVELAMER CARBONATE 800 MG TABLET PO SCH ×3 (09:22→16:05)
[2019-08-19] MEDS: CALCIUM ACETATE 667 MG CAPSULE PO SCH ×3 (09:22→16:05)
[2019-08-19] MEDS: CINACALCET HCL 30 MG TABLET PO SCH (09:24)
[2019-08-19] MEDS: HYDROXYCHLOROQUINE SULFATE 200 MG TABLET PO SCH (09:24)
[2019-08-19] MEDS: CARVEDILOL 25 MG TABLET PO SCH ×2 (09:25→20:51)
[2019-08-19] MEDS: AMLODIPINE 10 MG TABLET PO SCH (09:25)
[2019-08-19] MEDS: BENAZEPRIL HCL 20 MG TABLET PO SCH ×2 (09:25→16:11)
[2019-08-19] MEDS: CLONIDINE HCL 0.3 MG TABLET PO SCH ×2 (09:25→16:10)
[2019-08-19] MEDS: predniSONE 2.5 MG TABLET PO SCH (09:26)
[2019-08-19] MEDS: DOXAZOSIN 1 MG TABLET PO SCH ×2 (09:26→16:12)
[2019-08-19] MEDS: diphenhydrAMINE 50 MG/1 ML VIAL IV PRN ×2 (11:15→17:25)
[2019-08-19] MEDS ORDERED: CARVEDILOL 25 MG TABLET PO ONE (12:45)
--- NOTE | 2019-08-19 13:00 | NUR ---
Pt tolerated HD. HD rn took out 2Liters of fluid. Midline on left forearm inserted by PICC line nurse Donte TONG. Pt was seen by [facility] DR. Velázquez and adjusted b/p meds secondary to elevated b/p. Pt however asymptomatic with SBP @ 190's Will continue to monitor pts b/p.
[2019-08-19 13:38] VITALS: BP 199/125
[2019-08-19] MEDS: ONDANSETRON 4 MG/2 ML VIAL IV PRN (14:29)
[2019-08-19] MEDS: SILDENAFIL 20 MG TABLET PO SCH ×2 (14:29→21:37)
[2019-08-19] MEDS: NIFEdipine XL 60 MG TABSR PO SCH (16:11)
[2019-08-19 16:38] VITALS: BP 178/119
[2019-08-19] MEDS ORDERED: NIFEdipine 10 MG CAPSULE PO SCH (17:00)
--- NOTE | 2019-08-19 18:02 | NUR ---
Pt is in no acute distress. PT's pain, itching, and n/v managed with following meds -Dilaudid, benadryl, and Zofran. Plan of care effective. Pt's current sbp of 150's. Pt is in no acute distress. Call light is within reach.
--- NOTE | 2019-08-19 20:00 | NUR ---
Received patient sitting in bed. AAOx4. In no acute distress. Denies any pain or SOB at this time. Right groin dialysis site intact. Midline on left FA intact and patent. NSR on tele at 67/min. Needs assessed and attended to. Safety measure initiated and call eubanks within reach. Continue to monitor. Addendum: 08/19/19 at 2006 by JOSSELINE VU RN NSR on tele at 91/min.
[2019-08-19 20:50] VITALS: BP 153/100
[2019-08-19 21:03] VITALS: BP 168/110
[2019-08-20] VITALS (9 sets, daily range): BP systolic 110–168; BP diastolic 76–118
[2019-08-20] MEDS: diphenhydrAMINE 50 MG/1 ML VIAL IV PRN ×4 (00:44→23:27)
[2019-08-20] MEDS: HYDROMORPHONE 1 MG/1 ML DISP.SYRIN IV PRN ×6 (00:48→23:26)
[2019-08-20] MEDS: SILDENAFIL 20 MG TABLET PO SCH ×4 (05:17→21:40)
[2019-08-20] MEDS: hydrALAZINE HCL 25 MG TABLET PO SCH ×3 (05:17→21:41)
[2019-08-20] MEDS: ONDANSETRON 4 MG/2 ML VIAL IV PRN ×2 (05:18→13:33)
--- NOTE | 2019-08-20 06:11 | NUR ---
AAOx4. In no acute distress. Dilaudid 1mg IV PRN per order given for complain of pain and effective. Denies SOB. Right groin dialysis site intact. Midline on left FA intact and patent. NSR on tele at 81/min. Needs attended to and met. Safety measure maintained and call eubanks within reach.
--- NOTE | 2019-08-20 07:30 | NUR ---
RECIEVED PT LYING IN BED, AWAKE,ALERT AND ORIENTEDX3. APPEAQRS IN GOOD SPIRIT. HR IS SR. HAS A MIDLINE IV ACCESS ON THE LEFT FA G18 AND A JOSH CATHETER ON THE RIGHT GROIN.
--- NOTE | 2019-08-20 08:30 | NUR ---
PT'S BLOOD PRESSURE IS NORMAL BUT PT IS TAKING MULTIPLE MEDS FOR HER BP. PT KNOWS HER MEDS VERY WELL, HER BP IS 122/82. ALL HER BP MEDICATIONS NOT GIVEN.
[2019-08-20] MEDS: SEVELAMER CARBONATE 800 MG TABLET PO SCH ×3 (08:52→17:13)
[2019-08-20] MEDS: CALCIUM ACETATE 667 MG CAPSULE PO SCH ×3 (08:54→17:13)
[2019-08-20] MEDS: CINACALCET HCL 30 MG TABLET PO SCH (08:55)
[2019-08-20] MEDS: predniSONE 2.5 MG TABLET PO SCH (08:55)
[2019-08-20] MEDS: HYDROXYCHLOROQUINE SULFATE 200 MG TABLET PO SCH (08:56)
[2019-08-20] MEDS: NIFEdipine XL 60 MG TABSR PO SCH ×2 (09:00→17:14)
[2019-08-20] MEDS: DOXAZOSIN 1 MG TABLET PO SCH ×2 (09:00→17:18)
[2019-08-20] MEDS: BENAZEPRIL HCL 20 MG TABLET PO SCH ×2 (09:00→17:15)
[2019-08-20] MEDS: CARVEDILOL 25 MG TABLET PO SCH ×2 (09:00→20:36)
[2019-08-20] MEDS: CLONIDINE HCL 0.3 MG TABLET PO SCH ×2 (09:00→17:15)
--- NOTE | 2019-08-20 09:30 | NUR ---
PT REQUESTED TO GET HER PAIN MEDICATION TOGETHER WITH BENADRYL FO HER GENERALZED BODY PAINS LEVEL 8/10. MEDICATED WITH DILAUDID 1MG AND BENADRYL 25MG SLOW IVP VIA HER MIDLINE IV ACCESS ON THE LEFT FA.
--- NOTE | 2019-08-20 12:30 | NUR ---
PT DID NOT EAT HER LUNCH FOOD. SHE DID NOT LIKE THE FOOD.
--- NOTE | 2019-08-20 13:30 | NUR ---
MEDICATED WITH DILAUDID 1MG AND ZOFRAN 4MG SLOW IVP FOR C/O CHRONIC FRAUSTO LEVEL 8. PT IS NOT SLEEPING.
--- NOTE | 2019-08-20 18:00 | NUR ---
AGAIN PT DID NOT EAT HER DINNER. SBP IS UP IN THE 168/115. BP MEDS GIVEN. NO HD TODAY.
--- NOTE | 2019-08-20 20:00 | NUR ---
RECEIVED PT. AAOX4. ON RM AIR. MIDLINE INTACT & PATENT ON LAUREN. JOSH CATH INTACT ON R GROIN. NOT IN ANY DISTRESS.
--- NOTE | 2019-08-20 23:26 | NUR ---
MEDICATED W/ DILAUDID 1MG IVP FOR GENERALIZED PAIN SCALE 10/10. BP STABLE.
[2019-08-21] VITALS: BP 118/81
[2019-08-21] MEDS: HYDROMORPHONE 1 MG/1 ML DISP.SYRIN IV PRN ×4 (03:19→16:03)
[2019-08-21 04:00] VITALS: BP 124/86
[2019-08-21] MEDS: SILDENAFIL 20 MG TABLET PO SCH ×2 (05:36→16:17)
[2019-08-21] MEDS: hydrALAZINE HCL 25 MG TABLET PO SCH ×2 (05:36→14:00)
--- NOTE | 2019-08-21 06:10 | NUR ---
CALLED Antione KING , PT C/O GERD WANTS PROTONIX PO ORDER.
--- NOTE | 2019-08-21 08:00 | NUR ---
Discussed plan of care with pt re management of any c/o pain , fall precaution, n/v, and itching. Pt agreeable with plan of care. Pt is for HD plan today. Awaiting dialysis. PT c/o acid in her stomach and states to call DR alarcon for a protonix order. Placed call from dr Alarcon.
[2019-08-21] MEDS: diphenhydrAMINE 50 MG/1 ML VIAL IV PRN (08:13)
[2019-08-21] MEDS: SEVELAMER CARBONATE 800 MG TABLET PO SCH ×3 (08:22→16:13)
[2019-08-21] MEDS: CINACALCET HCL 30 MG TABLET PO SCH (08:22)
[2019-08-21] MEDS: CALCIUM ACETATE 667 MG CAPSULE PO SCH ×3 (08:22→16:14)
[2019-08-21] MEDS: CLONIDINE HCL 0.3 MG TABLET PO SCH ×2 (08:23→16:18)
[2019-08-21] MEDS: HYDROXYCHLOROQUINE SULFATE 200 MG TABLET PO SCH (08:23)
[2019-08-21] MEDS: CARVEDILOL 25 MG TABLET PO SCH (08:23)
[2019-08-21] MEDS: BENAZEPRIL HCL 20 MG TABLET PO SCH ×2 (08:24→16:18)
[2019-08-21] MEDS: NIFEdipine XL 60 MG TABSR PO SCH ×2 (08:24→16:17)
[2019-08-21] MEDS: predniSONE 2.5 MG TABLET PO SCH (08:26)
[2019-08-21] MEDS: DOXAZOSIN 1 MG TABLET PO SCH (08:38)
[2019-08-21] MEDS ORDERED: PANTOPRAZOLE SODIUM 40 MG VIAL IV SCH (09:00)
[2019-08-21 11:29] VITALS: BP 138/92
--- NOTE | 2019-08-21 12:00 | NUR ---
Pt dialysis done. HD RN took out 3 liters of fluid. Pt tolerated procedure.
--- NOTE | 2019-08-21 14:00 | NUR ---
Held HCTZ secondary to sbp less than 140 as ordered. will continue to monitor pt.
--- NOTE | 2019-08-21 16:00 | NUR ---
Mariana involvement re pt discharge secondary to pt requesting for ELmiron medication. Dr nolan and DR lazo refused to prescribe medication. Mariana explained to pt that she is to get Elmiron prescription from her primary doctor. Pt acknowledge 's decision.
[2019-08-21 16:06] VITALS: BP 103/54
[2019-08-21 16:08] VITALS: BP 148/99
[2019-08-21 16:18] VITALS: BP 148/99
[2019-08-21] MEDS ORDERED: DOXAZOSIN 2 MG TABLET PO SCH (17:00)
--- NOTE | 2019-08-21 17:00 | NUR ---
Pt has ride available at 7pm. PT wants to eat her dinner first.
--- NOTE | 2019-08-21 19:00 | NUR ---
Pt is in no acute distress. Discharge instructions give to pt. Pt verbalize understanding. Midline taken off on left forearm.
[2019-08-29] MEDS ORDERED: SILD20TA2 PO (09:36)
[2019-08-29] MEDS ORDERED: CARV25TA2 PO (09:36)
[2019-08-29] MEDS ORDERED: HYDR-894 PO (09:36)
[2019-08-29] MEDS ORDERED: AMLO10TA7 PO (09:36)
[2019-08-29] MEDS ORDERED: DOXA2TAB PO (09:36)
[2019-08-29] MEDS ORDERED: CINA30TA2 PO (09:36)
[2019-08-29] MEDS ORDERED: CLON0.3T4 PO (09:36)
[2019-08-29] MEDS ORDERED: MINO2.5T PO (09:36)
[2019-08-29] MEDS ORDERED: BENA20TA9 PO (09:36)
[2019-08-29] MEDS ORDERED: Calcium Acetate PO (09:36)
== END 2019-08-21 19:25 | disposition home or self-care (01) | DRG 291 ==
LOC: ER 15:18 → TELE3 17:52 → TELE-TD3 18:51 → TELE3 08-20 13:15
PROVIDERS: ADMIT Internal Medicine; ATTEND Nurse Practitioner Acute Care
PROC: 05HY33Z Insertion of Infusion Device into Upper Vein, Percutaneous Approach (ICD-10-PCS; principal; 2019-08-19)
PROC: 5A1D70Z Performance of Urinary Filtration, Intermittent, Less than 6 Hours Per Day (ICD-10-PCS; 2019-08-19)
DX: I13.2 Hypertensive heart and chronic kidney disease with heart failure and with stage 5 chronic kidney disease, or end stage renal disease (principal); N18.6 End stage renal disease; I50.31 Acute diastolic (congestive) heart failure; D61.818 Other pancytopenia; Q21.1 Atrial septal defect; I27.20 Pulmonary hypertension, unspecified; Z99.2 Dependence on renal dialysis; I16.0 Hypertensive urgency; M32.9 Systemic lupus erythematosus, unspecified; D63.1 Anemia in chronic kidney disease; R16.2 Hepatomegaly with splenomegaly, not elsewhere classified; M32.14 Glomerular disease in systemic lupus erythematosus; G40.909 Epilepsy, unspecified, not intractable, without status epilepticus; M79.7 Fibromyalgia; G89.4 Chronic pain syndrome; K59.00 Constipation, unspecified; I07.1 Rheumatic tricuspid insufficiency; G43.909 Migraine, unspecified, not intractable, without status migrainosus; K58.1 Irritable bowel syndrome with constipation; Z86.73 Personal history of transient ischemic attack (TIA), and cerebral infarction without residual deficits; M14.80 Arthropathies in other specified diseases classified elsewhere, unspecified site; E11.22 Type 2 diabetes mellitus with diabetic chronic kidney disease; M32.19 Other organ or system involvement in systemic lupus erythematosus
CPT/HCPCS: 36415; 70030-TC; 71045; 83735; 84100; 85025; 85730; 90937; 93005; 94660; A9150; G0378; J0360; J1170; J1200; J2405; J3490; J7512; Q0163

== ENCOUNTER 2019-08-26 10:17 | Inpatient (IN) | payer OTHER, MEDICAID ==
[2019-08-26] VITALS (37 sets, daily range): BP systolic 144–207; BP diastolic 66–168
[~2019-08-26] VITALS: Ht 157.5 cm; Wt 54.4 kg
[2019-08-26] MEDS ORDERED: HYDROMORPHONE 1 MG/1 ML DISP.SYRIN IM ONE (11:15)
[2019-08-26] MEDS ORDERED: diphenhydrAMINE 50 MG/1 ML VIAL ONE ×2 (11:15→14:26)
[2019-08-26] MEDS ORDERED: ONDANSETRON 4 MG/2 ML VIAL IM ONE (11:15)
[2019-08-26] MEDS ORDERED: ONDANSETRON 4 MG/2 ML VIAL ONE ×2 (11:15→14:27)
[2019-08-26] MEDS ORDERED: HYDROMORPHONE 2 MG/1 ML DISP.SYRIN ONE ×2 (11:15→14:26)
[2019-08-26] MEDS ORDERED: NITROGLYCERIN 0.4 MG/TAB BOTTLE SL ONE ×2 (11:15)
[2019-08-26] MEDS ORDERED: diphenhydrAMINE 50 MG/1 ML VIAL IM ONE (11:15)
[2019-08-26 11:20] LABS: BASOPHILS % (AUTO) 0.8 % (0.0-2.0); EOSINOPHILS # (AUTO) 0.3 K/uL (0.0-0.7); EOSINOPHILS % (AUTO) 4.2 % (0.0-7.0); HEMATOCRIT 21.6 % (31.2-41.9); LYMPHOCYTES # (AUTO) 0.5 K/uL (20.0-40.0); LYMPHOCYTES % (AUTO) 7.4 % (20.5-51.5); MEAN CORPUSCULAR HEMOGLOBIN 30.8 uug (24.7-32.8); MEAN CORPUSCULAR HGB CONC 32 g/dL (32.3-35.6); MEAN CORPUSCULAR VOLUME 96.8 fL (75.5-95.3); MONOCYTES # (AUTO) 0.3 K/uL (2.0-10.0); MONOCYTES % (AUTO) 4.9 % (0.0-11.0); NEUTROPHILS # (AUTO) 5.4 K/uL (1.8-8.9); NEUTROPHILS % (AUTO) 82.7 % (38.5-71.5); PLATELET COUNT (AUTO) 156 K/uL (179-408); RED BLOOD CELL COUNT(AUTO) 2.23 MIL/uL (3.63-4.92); WHITE BLOOD COUNT (AUTO) 6.5 K/uL (3.8-11.8)
[2019-08-26 11:25] LABS: HEMOGLOBIN 6.9 g/dL (10.9-14.3)
[2019-08-26 11:28] LABS: CARBON DIOXIDE 27 mmol/L (21-32); CHLORIDE 106 mmol/L (98-107); GLUCOSE 96 mg/dL (74-106); UREA NITROGEN, BLOOD 35 mg/dL (7-18)
[2019-08-26 11:30] LABS: CREATININE 8.8 mg/dL (0.6-1.3); POTASSIUM 7.3 mmol/L (3.5-5.1)
[2019-08-26] MEDS ORDERED: ALPRAZOLAM 0.25 MG TABLET PO ONE (11:30)
--- NOTE | 2019-08-26 11:30 | NUR ---
unable to establish heplock. picc line nurse will be here at 1300. ordered labotolo via dialysis cath. pt refused at this point and requestd to rest and let the pain med kicks in. oked.
[2019-08-26] MEDS ORDERED: ALPRAZOLAM 0.5 MG TABLET ONE (11:36)
[2019-08-26 11:41] LABS: ALANINE AMINOTRANSFERASE 18 U/L (14-59); ALKALINE PHOSPHATASE 88 U/L (50-136); ASPARTATE AMINOTRANSFERASE 19 U/L (15-37); BILIRUBIN,DIRECT 0.1 mg/dL (0.0-0.2); BILIRUBIN,TOTAL 0.4 mg/dL (0.2-1.0); TOTAL PROTEIN, SERUM 7.7 g/dL (6.4-8.2)
[2019-08-26] MEDS ORDERED: LABETALOL HCL 100 MG/20 ML VIAL ONE (11:42)
[2019-08-26] MEDS ORDERED: NEOMY/BACITRA/POLYMYXIN B OINT UD PACKET TP ONE ×3 (11:45→12:30)
[2019-08-26] MEDS ORDERED: LABETALOL HCL 100 MG TABLET PO ONE (11:45)
[2019-08-26] MEDS ORDERED: LABETALOL HCL 100 MG/20 ML VIAL IV ONE ×2 (11:45→13:00)
[2019-08-26 11:48] LABS: BAND % (MANUAL) 1 % (0-10); EOSINOPHILS % (MANUAL) 5 % (0-8); LYMPHOCYTES % (MANUAL) 8 % (20-40); MONOCYTES % (MANUAL) 5 % (2-10); NEUTROPHILS % (MANUAL) 81 % (42-75)
[2019-08-26] MEDS ORDERED: LABETALOL HCL 100 MG TABLET ONE (11:51)
--- NOTE | 2019-08-26 11:51 | NUR ---
pt requesting for routine bp to be given, notified.
[2019-08-26] MEDS ORDERED: AMLODIPINE 5 MG TABLET ONE (11:57)
[2019-08-26] MEDS ORDERED: BENAZEPRIL HCL 10 MG TABLET ONE (11:57)
[2019-08-26] MEDS ORDERED: hydrALAZINE HCL 25 MG TABLET ONE (11:58)
[2019-08-26] MEDS: AMLODIPINE 5 MG TABLET PO ONE ×2 (11:59→12:24)
[2019-08-26] MEDS ORDERED: BENAZEPRIL HCL 10 MG TABLET PO ONE (12:00)
[2019-08-26] MEDS ORDERED: CLONIDINE HCL 0.2 MG TABLET PO ONE (12:00)
[2019-08-26] MEDS ORDERED: hydrALAZINE HCL 25 MG TABLET PO ONE (12:00)
[2019-08-26] MEDS ORDERED: CLONIDINE HCL 0.2 MG TABLET ONE (12:07)
[2019-08-26] MEDS ORDERED: CARVEDILOL 3.125 MG TABLET PO ONE (12:15)
[2019-08-26] MEDS ORDERED: DOXAZOSIN 2 MG TABLET PO ONE (12:15)
[2019-08-26] MEDS ORDERED: CARVEDILOL 25 MG TABLET ONE (12:15)
[2019-08-26] MEDS ORDERED: DOXAZOSIN 2 MG TABLET ONE (12:16)
--- NOTE | 2019-08-26 12:55 | NUR ---
rodrigo at bedside for picc line insertion
[2019-08-26] MEDS ORDERED: Z GUARD REMEDY PASTE 57 GM TUBE TOP PRN (13:00)
[2019-08-26] MEDS ORDERED: INSULIN REGULAR, HUMAN 300 UNIT/3 ML VIAL IV ONE (13:00)
[2019-08-26] MEDS ORDERED: DEXTROSE 50% 50 ML DISP.SYRIN IV ONE (13:00)
[2019-08-26] MEDS ORDERED: NITROGLYCERIN IV 250 ML IV ONE (13:00)
--- NOTE | 2019-08-26 13:00 | NUR ---
derrick morrison ast bedside.
[2019-08-26] MEDS ORDERED: DEXTROSE 50% 50 ML DISP.SYRIN ONE (13:05)
[2019-08-26] MEDS ORDERED: NITROGLYCERIN IV 250 ML ONE (13:05)
[2019-08-26] MEDS ORDERED: INSULIN REGULAR, HUMAN 300 UNIT/3 ML VIAL ONE (13:05)
--- NOTE | 2019-08-26 13:19 | NUR ---
Dr. nolan at bedside.
--- NOTE | 2019-08-26 13:55 | NUR ---
Oscar placed heplock gauge 20, right forearm with us guidance.
--- NOTE | 2019-08-26 14:04 | NUR ---
nitro drip started on the right forearm at 5mcg/min, will monitor and titer the drip per md order.
[2019-08-26] MEDS ORDERED: ONDANSETRON 4 MG/2 ML VIAL IV ONE (14:30)
[2019-08-26] MEDS ORDERED: diphenhydrAMINE 50 MG/1 ML VIAL IV ONE (14:30)
[2019-08-26] MEDS ORDERED: HYDROMORPHONE 1 MG/1 ML DISP.SYRIN IV ONE (14:30)
--- NOTE | 2019-08-26 14:41 | NUR ---
pt transfered to floor with nitro drip running at 30 mcg/min per md order. bp 170/116
[2019-08-26] MEDS: NITROGLYCERIN IV 250 ML IV PRN ×2 (15:20→17:20)
--- NOTE | 2019-08-26 15:20 | NUR ---
ADMIT A 33 YO FEMALE FROM THE ER VIA GURNEY TO CCU1 WITH A C/O SOB AND HIGH BLOOD PRESSURE. PT IS OBTUNDED BUT AROUSABLE TO CALL. WAS MEDICATED FOR HER PAIN IN THE ER. NITROGLYCERIN DRIP IN PROGRESS AT 30MCG/MIN VIA THE RIGHT FA IV ACCESS. BP IS 179/121. HR IS SR NO ECTOPY. O2 ON 3LNC SATURATION OF 100%. VLAD 97.5.
--- NOTE | 2019-08-26 16:30 | NUR ---
PT STILL VERY DROWSY. HEMODIALYSIS NURSE IN THE ROOM TO DIALIZE THE PT.
[2019-08-26] MEDS ORDERED: SEVELAMER CARBONATE 3200 MG PO SCH (17:00)
[2019-08-26] MEDS: SEVELAMER CARBONATE 800 MG TABLET PO SCH (17:00)
[2019-08-26] MEDS: DOXAZOSIN 1 MG TABLET PO SCH ×2 (17:00→19:35)
[2019-08-26] MEDS ORDERED: CALCIUM ACETATE 2001 MG PO SCH (17:00)
[2019-08-26] MEDS ORDERED: Medication Not On Formulary EA (Benazepril Hcl 40 MG) PO SCH (17:00)
[2019-08-26] MEDS: CLONIDINE HCL 0.3 MG TABLET PO SCH ×2 (17:00→19:35)
[2019-08-26] MEDS: hydrALAZINE HCL 25 MG TABLET PO SCH ×2 (17:00→19:36)
--- NOTE | 2019-08-26 17:00 | NUR ---
PT STILL OBTUNDED AND UNABLE TO TAKE HER MEDICATION AT THIS TIME.
--- NOTE | 2019-08-26 17:45 | NUR ---
PT IS AROUSABLE AND NODDED TO CONSENT FOR THE BLOOD TRANSFUSION AND DR BROOKE FROM ER SIGNED THE CONSENT FOR 1 UNIT OF BLOOD. 1 UNIT IS INFUSED THROUGH DIALYSIS AND PT TOLREATED WELL.
[2019-08-26] MEDS: CALCIUM ACETATE 667 MG CAPSULE PO SCH (18:00)
[2019-08-26] MEDS: CARVEDILOL 25 MG TABLET PO SCH ×2 (18:00→19:35)
--- NOTE | 2019-08-26 18:50 | NUR ---
HEMODIALYSIS IS DONE AND PT STARTING TO WAKE UP AT THIS TIME.
--- NOTE | 2019-08-26 19:20 | NUR ---
Received patient in bed, just finishing up hemodialysis. Patient is a new admission that came from the ER with a diagnosis of CHF exacerbation and hypertensive crisis. Patient is awake and A/O x 3, however confused as to how she ended up in the CCU. Patient has 20g IVs in the left forearm and 1 in the right forearm. Patient is currently running on a nitroglycerine infusion running at 35mcg/min. Her blood pressure is 206/133. Patient has not yet received her PO hypertension medications as she was previously obtunded from medications given while in the ER. Plan of care is to reduce systolic blood pressure to under 160mmHg, and titrate nitro drip as needed to maintain this level. As stated, patient had just finished up hemodialysis and 1.5L of fluid was removed. Patient was on a nasal cannula however she keeps removing it. Saturation maintained at 94-95% on room air. Will keep supplemental o2 on standby is she needs it.
[2019-08-26] MEDS ORDERED: AMLODIPINE 10 MG TABLET PO SCH (21:00)
[2019-08-26] MEDS ORDERED: BENAZEPRIL HCL 20 MG TABLET PO SCH (21:00)
[2019-08-26] MEDS ORDERED: levoFLOXacin 500 MG TABLET PO SCH ×2 (21:15)
[2019-08-26] MEDS ORDERED: MORPHINE SULFATE 2 MG/1 ML DISP.SYRIN IV PRN (21:15)
--- NOTE | 2019-08-26 21:15 | NUR ---
Blood pressure steadily decreasing as a result of the PO medications. Currently 168/109. I just administered two more PO hypertension medications that were due. Will continue to monitor.
[2019-08-26] MEDS: ACETAMINOPHEN 325 MG TABLET PO PRN (21:25)
--- NOTE | 2019-08-26 22:30 | NUR ---
Systolic blood pressure briefly dropped below 160, but then began increasing above 160. Increased nitroglycerine infusion to 40mcg/min. will continue monitoring.
[2019-08-26] MEDS ORDERED: PANTOPRAZOLE SODIUM 40 MG VIAL IV ONE (23:00)
--- NOTE | 2019-08-26 23:15 | NUR ---
Patient requested pain medication, diphenhydramine, and something for heartburn, however morphine was ordered and this is listed as an allergy. Spoke with Dr. Guzman and he ordered the following: Hydromorphone 1mg IV q6hr PRN Diphenhydramine 25mg IV q6hr PRN Pantoprazole 40mg IV x one now(he was made aware scheduled PO dose starts in the AM) Orders entered and previous morphine order discontinued.
[2019-08-26] MEDS: ONDANSETRON 4 MG/2 ML VIAL IV PRN (23:26)
[2019-08-26] MEDS: diphenhydrAMINE 50 MG/1 ML VIAL IV PRN (23:26)
[2019-08-26] MEDS: HYDROMORPHONE 1 MG/1 ML DISP.SYRIN IV PRN (23:26)
[2019-08-27] VITALS (82 sets, daily range): BP systolic 126–217; BP diastolic 75–129
[2019-08-27 05:11] LABS: BASOPHILS # (AUTO) 0.1 K/uL (0.0-8.0); BASOPHILS % (AUTO) 1.3 % (0.0-2.0); EOSINOPHILS # (AUTO) 0.3 K/uL (0.0-0.7); LYMPHOCYTES # (AUTO) 0.5 K/uL (20.0-40.0); MEAN CORPUSCULAR VOLUME 94.1 fL (75.5-95.3); MONOCYTES # (AUTO) 0.3 K/uL (2.0-10.0); MONOCYTES % (AUTO) 6.3 % (0.0-11.0); WHITE BLOOD COUNT (AUTO) 4.2 K/uL (3.8-11.8)
[2019-08-27 05:14] LABS: EOSINOPHILS % (AUTO) 6.5 % (0.0-7.0); LYMPHOCYTES % (AUTO) 12.9 % (20.5-51.5); MEAN CORPUSCULAR HEMOGLOBIN 31.2 uug (24.7-32.8); MEAN CORPUSCULAR HGB CONC 33 g/dL (32.3-35.6); PLATELET COUNT (AUTO) 152 K/uL (179-408)
[2019-08-27 05:26] LABS: CREATININE 6.4 mg/dL (0.6-1.3); MAGNESIUM 1.9 mg/dL (1.8-2.4); PHOSPHOROUS 3.5 mg/dL (2.5-4.9); POTASSIUM 5.4 mmol/L (3.5-5.1)
[2019-08-27 05:37] LABS: THYROID STIMULATING HORMONE 1.372 mIU/mL (0.358-3.740)
[2019-08-27 05:43] LABS: RED BLOOD CELL COUNT(AUTO) 2.23 MIL/uL (3.63-4.92)
[2019-08-27 05:44] LABS: HEMOGLOBIN 6.9 g/dL (10.9-14.3)
--- NOTE | 2019-08-27 06:50 | NUR ---
Critical Hemoglobin level 6.9. Dr. Guzman made aware, no new orders given as he said he will be in the unit shortly.
[2019-08-27 06:58] LABS: LYMPHOCYTES % (MANUAL) 13 % (20-40); NEUTROPHILS % (MANUAL) 74 % (42-75)
[2019-08-27 06:59] LABS: EOSINOPHILS % (MANUAL) 6 % (0-8); MONOCYTES % (MANUAL) 7 % (2-10)
[2019-08-27] MEDS: HYDROMORPHONE 1 MG/1 ML DISP.SYRIN IV PRN ×4 (07:03→22:39)
[2019-08-27] MEDS: PANTOPRAZOLE SODIUM 40 MG TABLET.DR PO SCH (07:05)
[2019-08-27] MEDS: diphenhydrAMINE 50 MG/1 ML VIAL IV PRN ×3 (07:05→19:33)
--- NOTE | 2019-08-27 07:15 | NUR ---
Received report from hull builder nurse Migel, patient on nitro drip with BP elevated, sinus rhythm on the monitor, o2 saturation WNL on room air. Bed in low position, side rails upx2. Patient awake and alert x3. Bed alarm on.
[2019-08-27] MEDS: CARVEDILOL 25 MG TABLET PO SCH ×2 (07:53→18:26)
[2019-08-27] MEDS: CALCIUM ACETATE 667 MG CAPSULE PO SCH ×3 (07:54→18:25)
[2019-08-27] MEDS: SEVELAMER CARBONATE 800 MG TABLET PO SCH ×3 (07:54→17:30)
[2019-08-27] MEDS: HYDROXYCHLOROQUINE SULFATE 200 MG TABLET PO SCH (08:01)
[2019-08-27] MEDS: hydrALAZINE HCL 25 MG TABLET PO SCH ×3 (08:02→21:10)
[2019-08-27] MEDS: predniSONE 2.5 MG TABLET PO SCH (08:03)
[2019-08-27] MEDS: CLONIDINE HCL 0.3 MG TABLET PO SCH ×2 (08:03→17:31)
[2019-08-27] MEDS: CINACALCET HCL 30 MG TABLET PO SCH (08:04)
[2019-08-27] MEDS: DOXAZOSIN 2 MG TABLET PO SCH ×2 (08:05→17:31)
[2019-08-27] MEDS ORDERED: CINACALCET HCL 60 MG PO SCH (09:00)
[2019-08-27] MEDS ORDERED: Medication Not On Formulary EA (Esomeprazole Mag Trihydrate (Nexium) 40 MG) PO SCH (09:00)
--- NOTE | 2019-08-27 10:19 | NUR ---
Contacted Dr. Carter about patient's hemoglobin. One unit of blood ordered to run with Dialysis.
--- NOTE | 2019-08-27 11:45 | NUR ---
Dr. Huddleston saw patient and orders received to titrate nitro drip as able since patient is receiving oral medications. patients BP continues to be elevated through dialysis.
[2019-08-27] MEDS: ONDANSETRON 4 MG/2 ML VIAL IV PRN (13:11)
--- NOTE | 2019-08-27 13:15 | NUR ---
Patient has completed dialysis, BP remains elevated, Dilaudid, Benadryl and Zofran given as ordered.
[2019-08-27] MEDS: NITROGLYCERIN IV 250 ML IV PRN (13:54)
[2019-08-27] MEDS ORDERED: SILDENAFIL 20 MG TABLET PO SCH (14:00)
--- NOTE | 2019-08-27 14:25 | NUR ---
Contacted Dr. mariee to verify if patient is to have amlodipine BID, He verified that this should stay the same as it is her home medication. Contacted pharmacy to notify.
[2019-08-27] MEDS ORDERED: AMLODIPINE 10 MG TABLET PO SCH (14:28)
[2019-08-27] MEDS: BENAZEPRIL HCL 20 MG TABLET PO SCH ×2 (14:40→21:10)
[2019-08-27] MEDS ORDERED: hydrALAZINE HCL 20 MG/1 ML VIAL IV PRN (15:45)
[2019-08-27] MEDS ORDERED: LABETALOL HCL IV 250 MG in IV DEXTROSE 5% 200 ML IV PRN (16:00)
[2019-08-27] MEDS ORDERED: NITROPRUSSIDE SODIUM IV PRN (16:00)
[2019-08-27] MEDS ORDERED: DEXTROSE 5% IV PRN (16:00)
[2019-08-27] MEDS: MINOXIDIL 2.5 MG TABLET PO SCH ×2 (16:15→21:10)
[2019-08-27] MEDS ORDERED: NICARDIPINE IN NS 200 ML IV PRN (16:15)
--- NOTE | 2019-08-27 16:19 | NUR ---
Dr Carter and Dr. Guzman in the unit discussing change in IV drips. Initially labetalol ordered, pharmacy discussed this change with Dr. Guzman and they decided due to the heart rate that cardene is better suited for the patient
--- NOTE | 2019-08-27 17:41 | NUR ---
Patient refusing to take oral BP meds due to bp 130 sbp. Contacted Kenji Carter and informed him that patient refusing, stated to turn off drip until bp is >160 offer meds again and turn drip back on once medications are taken.
--- NOTE | 2019-08-27 18:30 | NUR ---
Patient agreed to take oral medications at this time. Explained to patient that Physician said that the drip must be back on if BP reaches 170 with taking oral medication. Patient verbalized understanding. Currently patient in bed, no distress noted at this time, bed in low position, side rails up x2. Oxygen saturation WNL, HR WNL.
--- NOTE | 2019-08-27 19:20 | NUR ---
Received patient in bed. Patient is awake and A/O x 3. Patient has 2 large bore IVs in the left forearm and 1 in the right forearm. Patient is no longer on the nitroglycerine infusion, and has nicardipine infusion currently on hold. Plan of care is to reduce systolic blood pressure to under 170mmHg, and Nicardipine drip as needed to maintain this level. Patient had hemodialysis and 2.3L of fluid was removed. Received report that the patient has been non-compliant with taking her blood pressure medication.
--- NOTE | 2019-08-27 20:00 | NUR ---
Explained to the patient that it is important that she take her medications on time as this allows for the medications to maintain a therapeutic level in her body. I explained that the sooner we can stabilize her blood pressure, the sooner she can leave the ICU. She verbalized understanding, but did not seem enthusiastic about being compliant.
[2019-08-27] MEDS: ACETAMINOPHEN 325 MG TABLET PO PRN (21:14)
[2019-08-28] VITALS (21 sets, daily range): BP systolic 125–178; BP diastolic 58–130
[2019-08-28] MEDS: HYDROMORPHONE 1 MG/1 ML DISP.SYRIN IV PRN ×2 (02:59→08:14)
[2019-08-28] MEDS: diphenhydrAMINE 50 MG/1 ML VIAL IV PRN ×3 (04:08→21:32)
[2019-08-28 05:07] LABS: BASOPHILS % (AUTO) 0.7 % (0.0-2.0); EOSINOPHILS # (AUTO) 0.3 K/uL (0.0-0.7); EOSINOPHILS % (AUTO) 6.3 % (0.0-7.0); HEMATOCRIT 27.1 % (31.2-41.9); HEMOGLOBIN 8.9 g/dL (10.9-14.3); LYMPHOCYTES # (AUTO) 0.6 K/uL (20.0-40.0); LYMPHOCYTES % (AUTO) 13.9 % (20.5-51.5); MEAN CORPUSCULAR HEMOGLOBIN 30.9 uug (24.7-32.8); MEAN CORPUSCULAR HGB CONC 33 g/dL (32.3-35.6); MEAN CORPUSCULAR VOLUME 93.5 fL (75.5-95.3); MONOCYTES # (AUTO) 0.3 K/uL (2.0-10.0); MONOCYTES % (AUTO) 7.7 % (0.0-11.0); NEUTROPHILS # (AUTO) 3.2 K/uL (1.8-8.9); NEUTROPHILS % (AUTO) 71.4 % (38.5-71.5); PLATELET COUNT (AUTO) 155 K/uL (179-408); WHITE BLOOD COUNT (AUTO) 4.5 K/uL (3.8-11.8)
[2019-08-28 05:17] LABS: CREATININE 5.6 mg/dL (0.6-1.3); PHOSPHOROUS 3.2 mg/dL (2.5-4.9); POTASSIUM 5.3 mmol/L (3.5-5.1)
[2019-08-28] MEDS: PANTOPRAZOLE SODIUM 40 MG TABLET.DR PO SCH (06:30)
[2019-08-28] MEDS: hydrALAZINE HCL 25 MG TABLET PO SCH ×3 (06:30→23:22)
--- NOTE | 2019-08-28 07:15 | NUR ---
patient received from warehouse supervisor 3rd shift asleep, no distress noted at this time. Bed in low position, side rails upx2. Cardene continues to be on hold. BP elevated to 164/109, oxygen saturation WNL.
[2019-08-28] MEDS: CARVEDILOL 25 MG TABLET PO SCH ×2 (08:07→17:44)
[2019-08-28] MEDS: SEVELAMER CARBONATE 800 MG TABLET PO SCH ×3 (08:08→17:44)
[2019-08-28] MEDS: CALCIUM ACETATE 667 MG CAPSULE PO SCH ×3 (08:08→17:45)
[2019-08-28] MEDS: DOXAZOSIN 2 MG TABLET PO SCH ×2 (08:09→17:42)
[2019-08-28] MEDS: predniSONE 2.5 MG TABLET PO SCH (08:10)
[2019-08-28] MEDS: CLONIDINE HCL 0.3 MG TABLET PO SCH ×2 (08:10→17:43)
[2019-08-28] MEDS: HYDROXYCHLOROQUINE SULFATE 200 MG TABLET PO SCH (08:10)
[2019-08-28] MEDS: CINACALCET HCL 30 MG TABLET PO SCH (08:11)
[2019-08-28] MEDS: ONDANSETRON 4 MG/2 ML VIAL IV PRN (08:14)
[2019-08-28] MEDS ORDERED: AMLODIPINE 10 MG TABLET PO ONE (09:00)
--- NOTE | 2019-08-28 09:00 | NUR ---
Patient compliant with medications this morning.
[2019-08-28] MEDS: BENAZEPRIL HCL 20 MG TABLET PO SCH ×2 (09:35→21:31)
[2019-08-28] MEDS: MINOXIDIL 2.5 MG TABLET PO SCH ×2 (09:35→23:22)
--- NOTE | 2019-08-28 11:10 | NUR ---
Patient seen by Dr. Navarrete.
[2019-08-28] MEDS ORDERED: HYDROMORPHONE 1 MG/1 ML DISP.SYRIN IV STA (12:09)
--- NOTE | 2019-08-28 19:06 | NUR ---
Patient has been cooperative with care throughout shift. Reports frequent pain in back and was informed that she will be seen by Dr. Tucker for pain management and that Dilaudid has been discontinued. Patient remains in sinus rhythm with improving BP's, using bedside commode independently. Oxygen saturation WNL
--- NOTE | 2019-08-28 20:10 | NUR ---
MOVED PATIENT VIA WHEELCHAIR . PATIENT AAOX4,MAEX4 . NO RESPIRATORY DISTRESS ON ROOM AIR .AFEBRILE BP 130/73 RR 20 SATURATION 100%.ALL BELONGINGS WITH PATIENT .
--- NOTE | 2019-08-28 20:15 | NUR ---
Received patient awake and alert. Patient shows no signs or symptoms of distress at this time. Vital signs stable. BP- 127/80. Bed set to lowest position. Call light within reach. Will continue to monitor patient.
[2019-08-28] MEDS: AMLODIPINE 10 MG TABLET PO SCH ×2 (21:00→21:31)
[2019-08-28] MEDS: ACETAMINOPHEN 325 MG TABLET PO PRN (21:31)
--- NOTE | 2019-08-28 23:10 | NUR ---
Pt complains of having a sudden urge of anxiety at this time. Pt reports having a bad reaction from taking lorazepam previously - increased agitation. Dr. Blackmon called and notified. Received orders. Will administer and will continue to monitor patient.
[2019-08-28] MEDS ORDERED: ALPRAZOLAM 0.5 MG TABLET PO ONE (23:15)
--- NOTE | 2019-08-28 23:40 | NUR ---
Pt now complains of having 8/10 back pain and headache. Pt requesting to have Dilaudid PRN to be reordered by physician. Left message for Dr. Blackmon. Awaiting response.
[2019-08-29 00:10] VITALS: BP 127/81
[2019-08-29] MEDS: diphenhydrAMINE 50 MG/1 ML VIAL IV PRN ×2 (03:27→10:21)
[2019-08-29] MEDS: ACETAMINOPHEN 325 MG TABLET PO PRN (03:27)
[2019-08-29] MEDS: hydrALAZINE HCL 25 MG TABLET PO SCH ×2 (05:09→14:00)
[2019-08-29] MEDS: PANTOPRAZOLE SODIUM 40 MG TABLET.DR PO SCH (06:07)
--- NOTE | 2019-08-29 06:33 | NUR ---
Patient shows no signs or symptoms of distress at this time. Denies having any shortness of breath at this time. Vital signs stable. NSR on tele monitor. 0600 Hydralazine dose held due to pt having dialysis today. Pt complains of having 9/[address] Roque notified and no orders received because pt is drug seeking. Will endorse patient to day shift nurse in stable condition.
[2019-08-29 07:11] LABS: BASOPHILS # (AUTO) 0.1 K/uL (0.0-8.0); BASOPHILS % (AUTO) 1.3 % (0.0-2.0); EOSINOPHILS # (AUTO) 0.3 K/uL (0.0-0.7); EOSINOPHILS % (AUTO) 6.2 % (0.0-7.0); HEMATOCRIT 26.6 % (31.2-41.9); HEMOGLOBIN 8.8 g/dL (10.9-14.3); LYMPHOCYTES # (AUTO) 0.6 K/uL (20.0-40.0); LYMPHOCYTES % (AUTO) 14.2 % (20.5-51.5); MEAN CORPUSCULAR HEMOGLOBIN 30.8 uug (24.7-32.8); MEAN CORPUSCULAR HGB CONC 33 g/dL (32.3-35.6); MEAN CORPUSCULAR VOLUME 93.1 fL (75.5-95.3); MONOCYTES # (AUTO) 0.3 K/uL (2.0-10.0); MONOCYTES % (AUTO) 6.7 % (0.0-11.0); NEUTROPHILS % (AUTO) 71.6 % (38.5-71.5); PLATELET COUNT (AUTO) 172 K/uL (179-408); RED BLOOD CELL COUNT(AUTO) 2.86 MIL/uL (3.63-4.92); WHITE BLOOD COUNT (AUTO) 4.2 K/uL (3.8-11.8)
[2019-08-29 07:17] LABS: MAGNESIUM 2.2 mg/dL (1.8-2.4); PHOSPHOROUS 2.7 mg/dL (2.5-4.9); POTASSIUM 5.2 mmol/L (3.5-5.1)
[2019-08-29] MEDS: CARVEDILOL 25 MG TABLET PO SCH (08:00)
[2019-08-29] MEDS: SEVELAMER CARBONATE 800 MG TABLET PO SCH ×2 (08:13→12:00)
[2019-08-29] MEDS: CALCIUM ACETATE 667 MG CAPSULE PO SCH ×2 (08:13→12:00)
[2019-08-29] MEDS: HYDROXYCHLOROQUINE SULFATE 200 MG TABLET PO SCH (08:14)
[2019-08-29] MEDS: CINACALCET HCL 30 MG TABLET PO SCH (08:17)
[2019-08-29] MEDS: predniSONE 2.5 MG TABLET PO SCH (08:24)
[2019-08-29] MEDS: MINOXIDIL 2.5 MG TABLET PO SCH (09:00)
[2019-08-29] MEDS: BENAZEPRIL HCL 20 MG TABLET PO SCH (09:00)
[2019-08-29] MEDS: AMLODIPINE 10 MG TABLET PO SCH (09:00)
[2019-08-29] MEDS: CLONIDINE HCL 0.3 MG TABLET PO SCH (09:00)
[2019-08-29] MEDS: DOXAZOSIN 2 MG TABLET PO SCH (09:00)
[2019-08-29] MEDS ORDERED: Calcium Acetate PO (09:36)
[2019-08-29] MEDS ORDERED: BENA20TA9 PO (09:36)
[2019-08-29] MEDS ORDERED: CLON0.3T4 PO (09:36)
[2019-08-29] MEDS ORDERED: CARV25TA2 PO (09:36)
[2019-08-29] MEDS ORDERED: SILD20TA2 PO (09:36)
[2019-08-29] MEDS ORDERED: DOXA2TAB PO (09:36)
[2019-08-29] MEDS ORDERED: HYDR-894 PO (09:36)
[2019-08-29] MEDS ORDERED: MINO2.5T PO (09:36)
[2019-08-29] MEDS ORDERED: AMLO10TA7 PO (09:36)
[2019-08-29] MEDS ORDERED: CINA30TA2 PO (09:36)
[2019-08-29] MEDS ORDERED: HYDROMORPHONE 1 MG/1 ML DISP.SYRIN IV ONE (09:45)
[2019-08-29 11:33] VITALS: BP 142/83
--- NOTE | 2019-08-29 15:20 | NUR ---
Patient calm and comfortable throughout shift. Patient medication compliant. Patient with stable vital signs. Patient had dialysis prior to discharge with no complications. Patient discharge with belongings and valuables. Patient given discharge instructions and prescriptions. Patient left via private transportation.
[2019-08-29 16:00] VITALS: BP 112/64
== END 2019-08-30 00:47 | disposition home or self-care (01) | DRG 291 ==
LOC: ER 10:17 → CCU 14:43 → TELE3 08-28 20:55
PROVIDERS: ADMIT Registered Nurse; ATTEND Nurse Practitioner Acute Care
PROC: 5A1D70Z Performance of Urinary Filtration, Intermittent, Less than 6 Hours Per Day (ICD-10-PCS; principal; 2019-08-26)
PROC: 30233N1 Transfusion of Nonautologous Red Blood Cells into Peripheral Vein, Percutaneous Approach (ICD-10-PCS; 2019-08-26)
DX: I13.2 Hypertensive heart and chronic kidney disease with heart failure and with stage 5 chronic kidney disease, or end stage renal disease (principal); N18.6 End stage renal disease; I50.33 Acute on chronic diastolic (congestive) heart failure; I16.1 Hypertensive emergency; K76.6 Portal hypertension; Q21.1 Atrial septal defect; D61.818 Other pancytopenia; D63.1 Anemia in chronic kidney disease; I27.29 Other secondary pulmonary hypertension; Z79.891 Long term (current) use of opiate analgesic; F32.9 Major depressive disorder, single episode, unspecified; F41.9 Anxiety disorder, unspecified; G40.909 Epilepsy, unspecified, not intractable, without status epilepticus; M79.7 Fibromyalgia; Z99.2 Dependence on renal dialysis; Z86.73 Personal history of transient ischemic attack (TIA), and cerebral infarction without residual deficits; I27.20 Pulmonary hypertension, unspecified; K21.9 Gastro-esophageal reflux disease without esophagitis; G89.4 Chronic pain syndrome; Z83.3 Family history of diabetes mellitus; E87.8 Other disorders of electrolyte and fluid balance, not elsewhere classified; K58.9 Irritable bowel syndrome, unspecified; D69.59 Other secondary thrombocytopenia; M32.14 Glomerular disease in systemic lupus erythematosus; E11.22 Type 2 diabetes mellitus with diabetic chronic kidney disease; N80.9 Endometriosis, unspecified; Z76.5 Malingerer [conscious simulation]; N25.0 Renal osteodystrophy; I07.1 Rheumatic tricuspid insufficiency; E87.5 Hyperkalemia; Z53.9 Procedure and treatment not carried out, unspecified reason
CPT/HCPCS: 36415; 70030-TC; 71045; 83735; 84100; 84443; 85025; 85730; 86850; 86900; 86901; 86920; 90937; 93005; A4663; C9113; G0378; J1170; J1200; J1815; J2405; J3490; J7512; P9016-BL; P9021

== ENCOUNTER 2019-11-16 05:31 | Emergency (ER) | payer OTHER ==
[~2019-11-16] VITALS: Ht 157.5 cm; Wt 55.8 kg
[~2019-11-16 05:31] MED LIST changes: +BENA20TA9 PO; +CINA30TA2 PO; -CLON0.3T PO; +CLON0.3T4 PO; +Calcium Acetate PO; +DOXA2TAB PO; +MINO2.5T PO; -PRED2.5T PO; +SILD20TA2 PO
[2019-11-16] MEDS ORDERED: LORAZEPAM 1 MG TABLET ONE (05:57)
--- NOTE | 2019-11-16 05:59 | NUR ---
Patient discharged to home in stable condition. Written and verbal after care instructions given. Patient verbalizes understanding of instructions. Stressed follow up or return to ER for worsening s/s. Patient ambulated with stable gait. Patient is taking rideshare home.
[2019-11-16 06:00] VITALS: BP 128/89
[2019-11-16] MEDS ORDERED: LORAZEPAM 0.5 MG TABLET PO ONE (06:00)
== END 2019-11-16 06:01 | disposition home or self-care (01) ==
LOC: ER 05:35
DX: G47.00 Insomnia, unspecified (principal); G40.909 Epilepsy, unspecified, not intractable, without status epilepticus; M32.9 Systemic lupus erythematosus, unspecified; E11.22 Type 2 diabetes mellitus with diabetic chronic kidney disease; I12.0 Hypertensive chronic kidney disease with stage 5 chronic kidney disease or end stage renal disease; N18.6 End stage renal disease; Z99.2 Dependence on renal dialysis; F41.9 Anxiety disorder, unspecified; Z76.0 Encounter for issue of repeat prescription; Z79.899 Other long term (current) drug therapy; Z88.6 Allergy status to analgesic agent; Z91.040 Latex allergy status; Z91.013 Allergy to seafood; Z88.8 Allergy status to other drugs, medicaments and biological substances; Z91.018 Allergy to other foods; Z87.01 Personal history of pneumonia (recurrent)
CPT/HCPCS: A4663

== ENCOUNTER 2020-03-24 03:30 | Emergency (ER) | payer OTHER ==
[~2020-03-24] VITALS: Ht 157.5 cm; Wt 55.3 kg
[~2020-03-24 03:30] MED LIST changes: -AMLO10TA7 PO; -BENA20TA9 PO; -CINA30TA2 PO; -Calcium Acetate PO; -MINO2.5T PO
--- NOTE | 2020-03-24 03:44 | NUR ---
at bedside for assessment
[2020-03-24] MEDS ORDERED: HEPARIN SODIUM,PORCINE/PF 100 UNIT/ML, 5ML SYR ONE (04:17)
[2020-03-24] MEDS ORDERED: LORAZEPAM 2 MG/1 ML VIAL IM ONE (04:30)
[2020-03-24] MEDS ORDERED: LORAZEPAM 2 MG/1 ML VIAL ONE (04:31)
[2020-03-24 04:32] LABS: EOSINOPHILS # (AUTO) 0.5 K/uL (0.0-0.7); EOSINOPHILS % (AUTO) 10.2 % (0.0-7.0); HEMATOCRIT 33.2 % (31.2-41.9); HEMOGLOBIN 10.6 g/dL (10.9-14.3); LYMPHOCYTES # (AUTO) 0.7 K/uL (20.0-40.0); LYMPHOCYTES % (AUTO) 15.6 % (20.5-51.5); MEAN CORPUSCULAR HEMOGLOBIN 32.3 uug (24.7-32.8); MEAN CORPUSCULAR HGB CONC 32 g/dL (32.3-35.6); MEAN CORPUSCULAR VOLUME 100.9 fL (75.5-95.3); MONOCYTES # (AUTO) 0.4 K/uL (2.0-10.0); MONOCYTES % (AUTO) 7.7 % (0.0-11.0); NEUTROPHILS % (AUTO) 65.5 % (38.5-71.5); PLATELET COUNT (AUTO) 163 K/uL (179-408); RED BLOOD CELL COUNT(AUTO) 3.29 MIL/uL (3.63-4.92); WHITE BLOOD COUNT (AUTO) 4.6 K/uL (3.8-11.8)
[2020-03-24 04:41] LABS: BILIRUBIN,DIRECT 0.1 mg/dL (0.0-0.2); BILIRUBIN,TOTAL 0.6 mg/dL (0.2-1.0); POTASSIUM 5.1 mmol/L (3.5-5.1); TOTAL PROTEIN, SERUM 8.4 g/dL (6.4-8.2)
[2020-03-24 04:43] LABS: CREATININE 16.4 mg/dL (0.6-1.3)
--- NOTE | 2020-03-24 05:15 | NUR ---
patient unable to given urine sample at this time, water given
--- NOTE | 2020-03-24 06:03 | NUR ---
second attempt, patient states she doesnt have urine to give at this time
--- NOTE | 2020-03-24 07:05 | NUR ---
Recieved pt in bed, resting w/ both eyes closed, NAD noted.
--- NOTE | 2020-03-24 08:45 | NUR ---
Pt is awake a/o x4, no sizure activity noted.
--- NOTE | 2020-03-24 08:56 | NUR ---
Breakfast tray provided, pt staes feeling alot better and wish to be discharged.
[2020-03-24 09:06] VITALS: BP 129/70
--- NOTE | 2020-03-24 09:06 | NUR ---
Patient discharged to home in stable condition. Written and verbal after care instructions given. Patient verbalizes understanding of instructions. Stressed follow up or return to ER for worsening s/s.
== END 2020-03-24 09:07 | disposition home or self-care (01) ==
LOC: ER 03:53
DX: F41.9 Anxiety disorder, unspecified (principal); G40.909 Epilepsy, unspecified, not intractable, without status epilepticus; M32.9 Systemic lupus erythematosus, unspecified; K58.9 Irritable bowel syndrome, unspecified; I10 Essential (primary) hypertension; Z87.01 Personal history of pneumonia (recurrent); M79.7 Fibromyalgia; I12.0 Hypertensive chronic kidney disease with stage 5 chronic kidney disease or end stage renal disease; N18.6 End stage renal disease; Z99.2 Dependence on renal dialysis; Z91.040 Latex allergy status; Z88.5 Allergy status to narcotic agent; Z88.8 Allergy status to other drugs, medicaments and biological substances; Z91.018 Allergy to other foods; Z83.3 Family history of diabetes mellitus; Z82.49 Family history of ischemic heart disease and other diseases of the circulatory system; Z79.899 Other long term (current) drug therapy
CPT/HCPCS: 80048; 80076; 80307; 80320; 84702; 85025; 96372; 99283; J2060; A4663; G0480; J1642

== ENCOUNTER 2020-12-30 11:25 | Emergency (ER) | payer OTHER ==
[~2020-12-30] VITALS: Ht 157.5 cm; Wt 56.2 kg
--- NOTE | 2020-12-30 12:55 | NUR ---
Patient was seen by MD. Ward swab sent to lab. Patient is ambulatory with steady gait. C/O "muscle pains"
[2020-12-30] MEDS ORDERED: HYDR-3980 PO (13:02)
--- NOTE | 2020-12-30 13:08 | NUR ---
DC, Rx (including precautions) and follow up instructions given and explained to patient who states she understands all instructions
== END 2020-12-30 13:15 | disposition home or self-care (01) ==
LOC: ER 11:25
DX: K52.9 Noninfective gastroenteritis and colitis, unspecified (principal); J20.9 Acute bronchitis, unspecified; Z20.822 Contact with and (suspected) exposure to COVID-19; G40.909 Epilepsy, unspecified, not intractable, without status epilepticus; E11.22 Type 2 diabetes mellitus with diabetic chronic kidney disease; N18.6 End stage renal disease; Z99.2 Dependence on renal dialysis; M32.9 Systemic lupus erythematosus, unspecified; M79.7 Fibromyalgia; G89.29 Other chronic pain; K58.9 Irritable bowel syndrome, unspecified; Z87.01 Personal history of pneumonia (recurrent); Z91.040 Latex allergy status; Z88.5 Allergy status to narcotic agent; Z91.013 Allergy to seafood; Z91.018 Allergy to other foods
CPT/HCPCS: 71045; A4663